=== PATIENT | female | born 1955 | race Caucasian/White ===

== ENCOUNTER 2024-09-26 16:36 | Emergency (ER) | payer MEDICARE, SELFPAY ==
--- NOTE | ~2024-09-26 | XR_ITS ---
XR wrist RT min 3V 09/26/2024 17:15 Indication: Right wrist pain Procedure: 4 views right wrist Comparison: No prior studies for comparison. Findings: No fracture, subluxation or dislocation. Mild osteoarthritis of the triscaphe and first carpal metacarpal joints. No erosive changes. There is anatomic alignment. 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 Reviewed, dictated and finalized at location O. 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
--- OUTSIDE RECORDS SUMMARY | 2024-09-26 16:39 | XMS_ITS | Encounter Summary ---
Author Organization [facility] Address [address] [place] [address] Care Team Providers Care Print Press Operator Name Role Phone Johnny Davis MD Primary Care Provider Encounter Details Date Type Department Care Team (Late st Contact Info) Description 05/17/1999 Emergency [facility] Maury Lee MD NO ADDRESS ON FILE Er, Authorized P NO ADDRESS ON FILE Myalgia and myositis, unspecified (Primary Dx) Social History Tobacco Use Types Packs/Day Years Used Date Smoking Tobacco: Never Assessed Comments Unknown Sex and Gender Information Value Date Recorded Sex Assigned at Not on file Legal Sex Female 4:28 AM ORNAMENTAL METAL WORKER HELPER Gender Identity Not on file Sexual Orientation Not on file documented as of this encounter Plan of Treatment Upcoming Encounters Date Type Department Care Team (Late st Contact Info) Description 12/11/2024 10:30 AM ORNAMENTAL METAL WORKER HELPER Video Visit [facility] Internal Medicine [facility] [address] [facility] [address] [facility] [address] [place] [address] Laura Pritchard, MARYJO [address] [place] [address] 07/07/2025 11:00 AM CDT Office Visit [facility] Internal Medicine [facility] [address] [facility] [address] [facility] [address] [place] [address] Johnny Davis MD [address] [place] [address] documented as of this encounter Visit Diagnoses Diagnosis Myalgia and myositis, unspecified- Primary Mylagia and myositis, unspecified documented in this encounter Additional Health Concerns Infection Onset Date Last Indicated Resolved Time R/O COVID-19 09/26/2019 09/26/2019 09/26/2019 2:08 PM CDT R/O COVID-19 09/26/2019 09/26/2019 09/26/2019 3:24 PM CDT R/O COVID-19 09/26/2019 09/26/2019 09/28/2019 2:36 AM CDT documented as of this encounter Care Teams Print Press Operator Relationship Specialty Start Date End Date Johnny Davis MD [address] [place] [address] PCP - General Internal Medicine 12/12/12 noe 01/26/16 01/26/16 Parminder Parry 01/26/16 [facility] 01/26/16 PROVIDER PLUS 10/25/18 documented as of this encounter
--- OUTSIDE RECORDS SUMMARY | 2024-09-26 16:39 | XMS_ITS | Encounter Summary ---
Author Organization [facility] Address [address] [place] [address] Care Team Providers Care Counselor/Art Therapist Name Role Phone Johnny Davis MD Primary Care Provider Encounter Details Date Type Department Care Team (Late st Contact Info) Description 08/31/1998 Emergency [facility] Dong Stafford, DO [id number] [place] [address] Er, Authorized P NO ADDRESS ON FILE Migraine, unspecified, without mention of intractable migraine without mention of status migrainosus (Primary Dx) Social History Tobacco Use Types Packs/Day Years Used Date Smoking Tobacco: Never Assessed Comments Unknown Sex and Gender Information Value Date Recorded Sex Assigned at Not on file Legal Sex Female 4:28 AM CCNA Gender Identity Not on file Sexual Orientation Not on file documented as of this encounter Plan of Treatment Upcoming Encounters Date Type Department Care Team (Late st Contact Info) Description 12/11/2024 10:30 AM CCNA Video Visit [facility] Internal Medicine [facility] [place] [facility] [address] [address] Laura Pritchard, MARYJO [address] [place] [address] 07/07/2025 11:00 AM CDT Office Visit [facility] Internal Medicine [facility] [address] [address] Johnny Davis MD [address] [address] documented as of this encounter Visit Diagnoses Diagnosis Migraine, unspecified, without mention of intractable migraine without mention of status migrainosus- Primary documented in this encounter Additional Health Concerns Infection Onset Date Last Indicated Resolved Time R/O COVID-19 09/26/2019 09/26/2019 09/26/2019 2:08 PM CDT R/O COVID-19 09/26/2019 09/26/2019 09/26/2019 3:24 PM CDT R/O COVID-19 09/26/2019 09/26/2019 09/28/2019 2:36 AM CDT documented as of this encounter Care Teams Counselor/Art Therapist Relationship Specialty Start Date End Date Johnny Davis MD [address] [place] [address] PCP - General Internal Medicine 12/12/12 sohan 01/26/16 01/26/16 Parminder Sohan 01/26/16 [facility] 01/26/16 PROVIDER PLUS 10/25/18 documented as of this encounter
--- OUTSIDE RECORDS SUMMARY | 2024-09-26 16:39 | XMS_ITS | Encounter Summary ---
Author Organization [facility] Address [address] [place] [address] Care Team Providers Care Picker Packer Name Role Phone Johnny Davis MD Primary Care Provider [phone] Encounter Details Date Type Department Care Team (Late st Contact Info) Description 06/08/[address] [facility] Internal Medicine [facility] [address] [address] [place] [address] Johnny Davis MD [address] [place] [address] Social History Tobacco Use Types Packs/Day Years Used Date Smoking Tobacco: Never Assessed Comments Unknown Sex and Gender Information Value Date Recorded Sex Assigned at Not on file Legal Sex Female 4:28 AM HEALTHCARE INSURANCE SALES AGENT Gender Identity Not on file Sexual Orientation Not on file documented as of this encounter Plan of Treatment Upcoming Encounters Date Type Department Care Team (Late st Contact Info) Description 12/11/2024 10:30 AM HEALTHCARE INSURANCE SALES AGENT Video Visit [facility] Internal Medicine [facility] [address] [place] [address] Laura Pritchard, MARYJO [address] [place] [address] 07/07/2025 11:00 AM CDT Office Visit [facility] Internal Medicine [facility] [address] [place] [address] Johnny Davis MD [address] [phone] documented as of this encounter Visit Diagnoses Not on filedocumented in this encounter Additional Health Concerns Infection Onset Date Last Indicated Resolved Time R/O COVID-19 09/26/2019 09/26/2019 09/26/2019 2:08 PM CDT R/O COVID-19 09/26/2019 09/26/2019 09/26/2019 3:24 PM CDT R/O COVID-19 09/26/2019 09/26/2019 09/28/2019 2:36 AM CDT documented as of this encounter Care Teams Picker Packer Relationship Specialty Start Date End Date Johnny Davis MD [address] [place] [address] PCP - General Internal Medicine 12/12/12 noe 01/26/16 01/26/16 Parminderoc Parry 01/26/16 [facility] 01/26/16 PROVIDER PLUS 10/25/18 documented as of this encounter
--- OUTSIDE RECORDS SUMMARY | 2024-09-26 16:39 | XMS_ITS | Encounter Summary ---
Author Organization [facility] Address [address] [place] [address] Care Team Providers Care Top Hat Body Maker Name Role Phone Johnny Davis MD Primary Care Provider Encounter Details Date Type Department Care Team (Late st Contact Info) Description 03/08/2000 Outpatient Historical [facility] Internal Medicine [facility] [address] [facility] [address] [place] [address] Johnny Davis MD [address] [facility] [address] [facility] [address] [place] [address] Social History Tobacco Use Types Packs/Day Years Used Date Smoking Tobacco: Never Assessed Comments Unknown Sex and Gender Information Value Date Recorded Sex Assigned at Not on file Legal Sex Female 4:28 AM MOTOR PATROL OPERATOR Gender Identity Not on file Sexual Orientation Not on file documented as of this encounter Plan of Treatment Upcoming Encounters Date Type Department Care Team (Late st Contact Info) Description 12/11/2024 10:30 AM MOTOR PATROL OPERATOR Video Visit [facility] Internal Medicine [facility] [address] [facility] [address] [facility] [address] [place] [address] Luara Pritchard, MARYJO [address] [place] [address] 07/07/2025 11:00 AM CDT Office Visit [facility] Internal Medicine [facility] [address] [facility] [address] [place] [address] Johnny Davis MD [address] [phone] documented as of this encounter Visit Diagnoses Not on filedocumented in this encounter Additional Health Concerns Infection Onset Date Last Indicated Resolved Time R/O COVID-19 09/26/2019 09/26/2019 09/26/2019 2:08 PM CDT R/O COVID-19 09/26/2019 09/26/2019 09/26/2019 3:24 PM CDT R/O COVID-19 09/26/2019 09/26/2019 09/28/2019 2:36 AM CDT documented as of this encounter Care Teams Top Hat Body Maker Relationship Specialty Start Date End Date Johnny Davis MD [address] [place] [address] PCP - General Internal Medicine 12/12/12 noe 01/26/16 01/26/16 Parminderoc Parry 01/26/16 [facility] 01/26/16 PROVIDER PLUS 10/25/18 documented as of this encounter
--- OUTSIDE RECORDS SUMMARY | 2024-09-26 16:39 | XMS_ITS | Encounter Summary ---
Author Organization [facility] Address [address] [place] [address] Care Team Providers Care Instructor Psychiatric Aide Name Role Phone Johnny Davis MD Primary Care Provider Reason for Visit * Reason Onset Date Comments ROUTING 08/08/2024 Encounter Details Date Type Department Care Team (Late st Contact Info) Description 08/08/2024 Telephone [facility] Internal Medicine Medical [facility] [address] [facility] [address] [place] [address] Johnny Davis MD [address] [facility] [address] [place] [address] ROUTING Social History Tobacco Use Types Packs/Day Years Used Date Smoking Tobacco: Former Cigarettes 0.5 50.3 0 04/22/1972 - 01/14/2020 Smokeless Tobacco: Never Comments:started at 17, quit off/on for total yrs smoking:quit 6 months ago Alcohol Use Standard Drinks/Week Comments No 0 (1 standard drink = 0.6 oz pur e alcohol) Feeling Safe Answer Date Recorded Are you in a relationship wi th someone who hurts you emotionally and/or physically? No 12/30/2022 Food Insecurity Answer Date Recorded Social/Environmental Concerns No concerns Transportation Needs Answer Date Record ed Social/Environmental Concerns No concerns Housing Stability Answer Date Recorded Social/Environmental Concerns No concerns Utility Needs Answer Date Recorded Social/Environmental Concerns No concerns Comments No Sex and Gender Information Value Date Recorded Sex Assigned at Not on file Legal Sex Female 4:28 AM TURNAROUND ENGINEER Gender Identity Not on file Sexual Orientation Not on file Occupation Industry Job Start Date Job End Date Not on file Not on file Not on file Not on file documented as of this encounter Miscellaneous Notes * Telephone Encounter - Diana Schofield RN - 08/08/2024 10:40 AM CDT 08/08/2024 10:42 AM Spoke with patient's spouse regarding MMM (verified on PHI). There was an issue getting Diana scheduled at the [facility] for iron infusions, but they have resolved this issue. Murray states that patient is extremely weak and can't walk without assistance. She has had a couple of falls. The earliest they could get her into the infusion center is next Monday and again the following Monday. Murray is concerned because patient's labs are worse than they were the last time when patient had orders for 5 daily infusions for 5 days in a row. He is concerned that two infusions will not be enough. Murray is inquiring if there is anything supplementally that they can do at this time for patient's symptoms. Also, a year or two ago, patient was referred to a senior j2ee developer and Murray is inquiring if they should do that again. He states that they need someone who will pay close attention to what is going on with the patient. Routed to PCP for review/input. Diana POTTS Received MMM 08/06 from patient's spouse in spouses chart-Murray Carrion: Re: my , Diana Carrion b/d 57 Dr Davis ordered infusions for Diana's severe anemia about 2 weeks ago. Referral somehow was sent to wrong place. [facility] now had order but is dragging fret on getting ins approval. Would you ir Dr Davis please call the infusion ctr at [facility] and get them to immediately get the ins approval so silvia can get appts for infusions assp. She is so week she cannot walk without support, extremely spacey , difficulty breathing. If i can't get her in immediately I may have to take her to er. Please help her. Murray Carrion [phone] documented in this encounter Plan of Treatment Upcoming Encounters Date Type Department Care Team (Late st Contact Info) Description 12/11/2024 10:30 AM TURNAROUND ENGINEER Video Visit [facility] Internal Medicine [facility] [address] [facility] [address] [place] [address] Laura Pritchard NP [address] [facility] [address] [place] [address] 07/07/2025 11:00 AM CDT Office Visit [facility] Internal Medicine [facility] [address] [facility] [address] [place] [address] Johnny Davis MD [address] [facility] [address] [place], [place] [phone] documented as of this encounter Visit Diagnoses Not on filedocumented in this encounter Additional Health Concerns Assessment Noted Time PHQ-9 Depression Total Score: 2 06/30/19 25 11:36 AM CDT documented as of this encounter Care Teams Instructor Psychiatric Aide Relationship Specialty Start Date End Date Johnny Davis MD [address] [facility] [address] [place], [place] [id number] PCP - General Internal Medicine 12/12/12 Parminder Parry 01/26/16 [facility] 01/26/16 PROVIDER PLUS 10/25/18 documented as of this encounter
--- OUTSIDE RECORDS SUMMARY | 2024-09-26 16:39 | XMS_ITS | Encounter Summary ---
Author Organization [facility] Address [address] [place] [address] Care Team Providers Care Certified Professional Ergonomist Name Role Phone Johnny Davis MD Primary Care Provider Encounter Details Date Type Department Care Team (Late st Contact Info) Description 07/14/1999 Outpatient Historical [facility] Internal Medicine [facility] [address] [facility] [address] [place] [address] Johnny Davis MD [address] [address] [place] [address] Social History Tobacco Use Types Packs/Day Years Used Date Smoking Tobacco: Never Assessed Comments Unknown Sex and Gender Information Value Date Recorded Sex Assigned at Not on file Legal Sex Female 4:28 AM FELLER MACHINE OPERATOR Gender Identity Not on file Sexual Orientation Not on file documented as of this encounter Plan of Treatment Upcoming Encounters Date Type Department Care Team (Late st Contact Info) Description 12/11/2024 10:30 AM FELLER MACHINE OPERATOR Video Visit [facility] Internal Medicine [facility] [address] [facility] [address] [place] [address] Laura Pritchard, MARYJO [address] [place] [address] 07/07/2025 11:00 AM CDT Office Visit [facility] Internal Medicine [facility] [address] [facility] [address] [place] [address] Johnny Davis MD [address] [id number] documented as of this encounter Visit Diagnoses Not on filedocumented in this encounter Additional Health Concerns Infection Onset Date Last Indicated Resolved Time R/O COVID-19 09/26/2019 09/26/2019 09/26/2019 2:08 PM CDT R/O COVID-19 09/26/2019 09/26/2019 09/26/2019 3:24 PM CDT R/O COVID-19 09/26/2019 09/26/2019 09/28/2019 2:36 AM CDT documented as of this encounter Care Teams Certified Professional Ergonomist Relationship Specialty Start Date End Date Johnny Davis MD [address] [place] [address] PCP - General Internal Medicine 12/12/12 noe 01/26/16 01/26/16 Parminderoc Parry 01/26/16 [facility] 01/26/16 PROVIDER PLUS 10/25/18 documented as of this encounter
--- OUTSIDE RECORDS SUMMARY | 2024-09-26 16:39 | XMS_ITS | Encounter Summary ---
Author Organization [facility] Address [address] [place] [address] Care Team Providers Care Health Technician Hearing Name Role Phone Johnny Davis MD Primary Care Provider [phone] Encounter Details Date Type Department Care Team (Late st Contact Info) Description 08/01/1999 Emergency [facility] Edgar Carcamo MD Er, Authorized P NO ADDRESS ON FILE Unspecified asthma(493.90) (Primary Dx) Social History Tobacco Use Types Packs/Day Years Used Date Smoking Tobacco: Never Assessed Comments Unknown Sex and Gender Information Value Date Recorded Sex Assigned at Not on file Legal Sex Female 4:28 AM CORRECTIONS LIEUTENANT Gender Identity Not on file Sexual Orientation Not on file documented as of this encounter Plan of Treatment Upcoming Encounters Date Type Department Care Team (Late st Contact Info) Description 12/11/2024 10:30 AM CORRECTIONS LIEUTENANT Video Visit [facility] Internal Medicine [facility] [address] [place] [address] Laura Pritchard NP [address] [place] [address] 07/07/2025 11:00 AM CDT Office Visit [facility] Internal Medicine [facility] [address] [place] [address] Johnny Davis MD [address] [facility] [address] [place] [address] documented as of this encounter Visit Diagnoses Diagnosis Unspecified asthma(493.90)- Primary Unspecified asthma documented in this encounter Additional Health Concerns Infection Onset Date Last Indicated Resolved Time R/O COVID-19 09/26/2019 09/26/2019 09/26/2019 2:08 PM CDT R/O COVID-19 09/26/2019 09/26/2019 09/26/2019 3:24 PM CDT R/O COVID-19 09/26/2019 09/26/2019 09/28/2019 2:36 AM CDT documented as of this encounter Care Teams Health Technician Hearing Relationship Specialty Start Date End Date Johnny Davis MD [address] [place] [address] PCP - General Internal Medicine 12/12/12 noe 01/26/16 01/26/16 Parminder Parry 01/26/16 [facility] 01/26/16 PROVIDER PLUS 10/25/18 documented as of this encounter
--- OUTSIDE RECORDS SUMMARY | 2024-09-26 16:39 | XMS_ITS | Encounter Summary ---
Author Organization [facility] Address [address] [place] [address] Care Team Providers Care Warehouse Person Name Role Phone Johnny Davis MD Primary Care Provider Encounter Details Date Type Department Care Team (Latest Contact Info) Description 04/23/2001 Outpatient Historical [facility] Kevin Miller MD [address] [place] [address] UNS ASTHMA WOSTATUS ASTHMATICUS (Primary Dx) Social History Tobacco Use Types Packs/Day Years Used Date Smoking Tobacco: Never Assessed Comments Unknown Sex and Gender Information Value Date Recorded Sex Assigned at Not on file Legal Sex Female 4:28 AM GEOLOGICAL E LOGGER Gender Identity Not on file Sexual Orientation Not on file documented as of this encounter Plan of Treatment Upcoming Encounters Date Type Department Care Team (Late st Contact Info) Description 12/11/2024 10:30 AM GEOLOGICAL E LOGGER Video Visit [facility] Internal Medicine [facility] [address] [place] [address] Laura Pritchard NP [address] [place] [address] 07/07/2025 11:00 AM CDT Office Visit [facility] Internal Medicine [facility] [address] [place] [address] Johnny Davis MD [address] [facility] [address] [place] [address] documented as of this encounter Visit Diagnoses Diagnosis Unspecified asthma(493.90)- Primary Unspecified asthma documented in this encounter Additional Health Concerns Infection Onset Date Last Indicated Resolved Time R/O COVID-19 09/26/2019 09/26/2019 09/26/2019 2:08 PM CDT R/O COVID-19 09/26/2019 09/26/2019 09/26/2019 3:24 PM CDT R/O COVID-19 09/26/2019 09/26/2019 09/28/2019 2:36 AM CDT documented as of this encounter Care Teams Warehouse Person Relationship Specialty Start Date End Date Johnny Davis MD [address] [address] PCP - General Internal Medicine 12/12/12 noe 01/26/16 01/26/16 Parminder Parry 01/26/16 [facility] 01/26/16 PROVIDER PLUS 10/25/18 documented as of this encounter
--- OUTSIDE RECORDS SUMMARY | 2024-09-26 16:39 | XMS_ITS | Encounter Summary ---
Author Organization [facility] Address [address] [place] [address] Care Team Providers Care Development Intern Name Role Phone Johnny Davis MD Primary Care Provider Encounter Details Date Type Department Care Team (Late st Contact Info) Description 10/14/1999 Outpatient Historical [facility] Internal Medicine [facility] [address] [facility] [address] [place] [address] Johnny Davis MD [address] [address] [place] [address] Social History Tobacco Use Types Packs/Day Years Used Date Smoking Tobacco: Never Assessed Comments Unknown Sex and Gender Information Value Date Recorded Sex Assigned at Not on file Legal Sex Female 4:28 AM VAMP THROATER Gender Identity Not on file Sexual Orientation Not on file documented as of this encounter Plan of Treatment Upcoming Encounters Date Type Department Care Team (Late st Contact Info) Description 12/11/2024 10:30 AM VAMP THROATER Video Visit [facility] Internal Medicine [facility] [address] [facility] [address] [place] [address] Laura Pritchard, MARYJO [address] [place] [address] 07/07/2025 11:00 AM CDT Office Visit [facility] Internal Medicine [facility] [address] [facility] [address] [place] [address] Johnny Davis MD [address] [phone] documented as of this encounter Visit Diagnoses Not on filedocumented in this encounter Additional Health Concerns Infection Onset Date Last Indicated Resolved Time R/O COVID-19 09/26/2019 09/26/2019 09/26/2019 2:08 PM CDT R/O COVID-19 09/26/2019 09/26/2019 09/26/2019 3:24 PM CDT R/O COVID-19 09/26/2019 09/26/2019 09/28/2019 2:36 AM CDT documented as of this encounter Care Teams Development Intern Relationship Specialty Start Date End Date Johnny Davis MD [address] [place] [address] PCP - General Internal Medicine 12/12/12 noe 01/26/16 01/26/16 Parminderoc Parry 01/26/16 [facility] 01/26/16 PROVIDER PLUS 10/25/18 documented as of this encounter
--- OUTSIDE RECORDS SUMMARY | 2024-09-26 16:39 | XMS_ITS | Encounter Summary ---
Author Organization [facility] Address [address] [place] [address] Care Team Providers Care Diesel Tractor Operator Name Role Phone Johnny Davis MD Primary Care Provider Encounter Details Date Type Department Care Team (Late st Contact Info) Description 05/02/2001 Outpatient Historical [facility] DEPT Joseph Hu MD [address] [place] [phone] BENIGN BIANCA SKULL/FACE BONE (Primary Dx) Social History Tobacco Use Types Packs/Day Years Used Date Smoking Tobacco: Never Assessed Comments Unknown Sex and Gender Information Value Date Recorded Sex Assigned at Not on file Legal Sex Female 4:28 AM FOUNDATION STAGE TEACHER Gender Identity Not on file Sexual Orientation Not on file documented as of this encounter Plan of Treatment Upcoming Encounters Date Type Department Care Team (Late st Contact Info) Description 12/11/2024 10:30 AM FOUNDATION STAGE TEACHER Video Visit [facility] Internal Medicine [facility] [address] [facility] [address] [place] [address] Laura Pritchard NP [address] [place] [address] 07/07/2025 11:00 AM CDT Office Visit [facility] Internal Medicine [facility] [address] [facility] [address] [place] [address] Johnny Davis MD 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
--- OUTSIDE RECORDS SUMMARY | 2024-09-26 16:39 | XMS_ITS | Encounter Summary ---
Author Organization [facility] Address [address] [place] [address] Care Team Providers Care Correction Officer Head Name Role Phone Johnny Davis MD Primary Care Provider Encounter Details Date Type Department Care Team (Latest Contact Info) Description 04/23/2001 Outpatient Historical [facility] Kevin Wallace MD [address] [place] [address] COUGH (Primary Dx) Social History Tobacco Use Types Packs/Day Years Used Date Smoking Tobacco: Never Assessed Comments Unknown Sex and Gender Information Value Date Recorded Sex Assigned at Not on file Legal Sex Female 4:28 AM NET WASHER Gender Identity Not on file Sexual Orientation Not on file documented as of this encounter Plan of Treatment Upcoming Encounters Date Type Department Care Team (Late st Contact Info) Description 12/11/2024 10:30 AM NET WASHER Video Visit [facility] Internal Medicine [facility] [address] [facility] [address] [place] [address] Laura Pritchard NP [address] [place] [address] 07/07/2025 11:00 AM CDT Office Visit [facility] Internal Medicine [facility] [address] [facility] [address] [place] [address] Johnny Davis MD [address] [facility] [address] [place] [address] documented as of this encounter Visit Diagnoses Diagnosis Cough- Primary documented in this encounter Additional Health Concerns Infection Onset Date Last Indicated Resolved Time R/O COVID-19 09/26/2019 09/26/2019 09/26/2019 2:08 PM CDT R/O COVID-19 09/26/2019 09/26/2019 09/26/2019 3:24 PM CDT R/O COVID-19 09/26/2019 09/26/2019 09/28/2019 2:36 AM CDT documented as of this encounter Care Teams Correction Officer Head Relationship Specialty Start Date End Date Johnny Davis MD [address] [place] [address] PCP - General Internal Medicine 12/12/12 noe 01/26/16 01/26/16 Parminder Parry 01/26/16 [facility] 01/26/16 PROVIDER PLUS 10/25/18 documented as of this encounter
--- OUTSIDE RECORDS SUMMARY | 2024-09-26 16:39 | XMS_ITS | Clinical Summary ---
Author Organization [facility] Address [address] [place] [address] Care Team Providers Care Jig Bore Operator Name Role Phone Unavailable Primary Care Provider Unavailabl e Social History Tobacco Use Types Packs/Day Years Used Date Smoking Tobacco: Never Assessed Comments Unknown Sex and Gender Information Value Date Recorded Sex Assigned at Not on file Legal Sex Female 10:36 AM CDT Gender Identity Not on file Sexual Orientation Not on file Plan of Treatment Health Maintenance Due Date Last Done Comments Colorectal Cancer Screening Colonoscopy (10 Years) 1956 Hepatitis C 1974 DTaP, Tdap and Td Vaccines (1 - Tdap) 09/24/1975 Mammogram Screening 1996 Zoster Vaccines (1 of 2) 2006 Annual Medicare Wellness Visit 2021 Dexa Scan (General) 2021 COVID-19 Vaccine ( season) 2023 11/03/2021, 01/26/2021, 05/11/2020, Additional history exists RSV Immunization or 60+ Years (1 - 1-dose 75+ series) 09/24/2031 Pneumococcal Vaccine: 50+ Years Completed 01/11/2022 Meningococcal B Vaccine Aged Out No l onger eligible based on patient's age to complete this topic Meningococcal Vaccine Aged Out No jose cruz drew eligible based on patient's age to complete this topic RSV Immunizations Under 20 Months Aged Out No longer eligible based on patient's age to complete this topic Insurance [employer]
--- OUTSIDE RECORDS SUMMARY | 2024-09-26 16:39 | XMS_ITS | Encounter Summary ---
Author Organization [facility] Address [address] [place] [address] Care Team Providers Care Order Processing Manager Name Role Phone Johnny Davis MD Primary Care Provider Encounter Details Date Type Department Care Team (Late st Contact Info) Description 08/13/1999 Outpatient Historical [facility] Internal Medicine [facility] [address] [facility] [address] [place] [address] Johnny aDvis MD [address] [facility] [address] [place] [address] Social History Tobacco Use Types Packs/Day Years Used Date Smoking Tobacco: Never Assessed Comments Unknown Sex and Gender Information Value Date Recorded Sex Assigned at Not on file Legal Sex Female 4:28 AM FORGE HEATER Gender Identity Not on file Sexual Orientation Not on file documented as of this encounter Plan of Treatment Upcoming Encounters Date Type Department Care Team (Late st Contact Info) Description 12/11/2024 10:30 AM FORGE HEATER Video Visit [facility] Internal Medicine [facility] [address] [facility] [address] [place] [address] Laura Pritchard, MARYJO [address] [place] [address] 07/07/2025 11:00 AM CDT Office Visit [facility] Internal Medicine [facility] [address] [facility] [address] [place] [address] Johnny Davis MD [address] [phone] documented as of this encounter Visit Diagnoses Not on filedocumented in this encounter Additional Health Concerns Infection Onset Date Last Indicated Resolved Time R/O COVID-19 09/26/2019 09/26/2019 09/26/2019 2:08 PM CDT R/O COVID-19 09/26/2019 09/26/2019 09/26/2019 3:24 PM CDT R/O COVID-19 09/26/2019 09/26/2019 09/28/2019 2:36 AM CDT documented as of this encounter Care Teams Order Processing Manager Relationship Specialty Start Date End Date Johnny Davis MD [address] [place] [address] PCP - General Internal Medicine 12/12/12 noe 01/26/16 01/26/16 Parminderoc Parry 01/26/16 [facility] 01/26/16 PROVIDER PLUS 10/25/18 documented as of this encounter
--- OUTSIDE RECORDS SUMMARY | 2024-09-26 16:39 | XMS_ITS | Encounter Summary ---
Author Organization [facility] Address [address] [place] [address] Care Team Providers Care Supervisor Drying Name Role Phone Johnny Davis MD Primary Care Provider Encounter Details Date Type Department Care Team (Late st Contact Info) Description 03/09/1999 Outpatient Historical [facility] Internal Medicine [facility] [address] [facility] [address] [place] [address] Johnny Davis MD [address] [facility] [address] [place] [address] Social History Tobacco Use Types Packs/Day Years Used Date Smoking Tobacco: Never Assessed Comments Unknown Sex and Gender Information Value Date Recorded Sex Assigned at Not on file Legal Sex Female 4:28 AM HOME SPECIALIST Gender Identity Not on file Sexual Orientation Not on file documented as of this encounter Plan of Treatment Upcoming Encounters Date Type Department Care Team (Late st Contact Info) Description 12/11/2024 10:30 AM HOME SPECIALIST Video Visit [facility] Internal Medicine [facility] [address] [facility] [address] [place] [address] Laura Pritchard, MARYJO [address] [place] [address] 07/07/2025 11:00 AM CDT Office Visit [facility] Internal Medicine [facility] [address] [facility] [address] [place] [address] Johnny Davis MD [address] [phone] documented as of this encounter Visit Diagnoses Not on filedocumented in this encounter Additional Health Concerns Infection Onset Date Last Indicated Resolved Time R/O COVID-19 09/26/2019 09/26/2019 09/26/2019 2:08 PM CDT R/O COVID-19 09/26/2019 09/26/2019 09/26/2019 3:24 PM CDT R/O COVID-19 09/26/2019 09/26/2019 09/28/2019 2:36 AM CDT documented as of this encounter Care Teams Supervisor Drying Relationship Specialty Start Date End Date Johnny Davis MD [address] [place] [address] PCP - General Internal Medicine 12/12/12 noe 01/26/16 01/26/16 Parminderoc Parry 01/26/16 [facility] 01/26/16 PROVIDER PLUS 10/25/18 documented as of this encounter
--- OUTSIDE RECORDS SUMMARY | 2024-09-26 16:39 | XMS_ITS | Encounter Summary ---
Author Organization [facility] Address [address] [place] [address] Care Team Providers Care Electrical & Instrumentation Supervisor Name Role Phone Johnny Davis MD Primary Care Provider Encounter Details Date Type Department Care Team (Late st Contact Info) Description 03/27/2001 Outpatient Historical [facility] Internal Medicine [facility] [address] [facility] [address] [place] [address] Johnny Davis MD [address] [facility] [address] [place] [address] Social History Tobacco Use Types Packs/Day Years Used Date Smoking Tobacco: Never Assessed Comments Unknown Sex and Gender Information Value Date Recorded Sex Assigned at Not on file Legal Sex Female 4:28 AM ENROLLMENT MANAGEMENT COORDINATOR Gender Identity Not on file Sexual Orientation Not on file documented as of this encounter Plan of Treatment Upcoming Encounters Date Type Department Care Team (Late st Contact Info) Description 12/11/2024 10:30 AM ENROLLMENT MANAGEMENT COORDINATOR Video Visit [facility] Internal Medicine [facility] [address] [facility] [address] [place] [address] Laura Pritchard, MARYJO [address] [place] [address] 07/07/2025 11:00 AM CDT Office Visit [facility] Internal Medicine [facility] [address] [facility] [address] [place] [address] Johnny Davis MD [address] [phone] documented as of this encounter Visit Diagnoses Not on filedocumented in this encounter Additional Health Concerns Infection Onset Date Last Indicated Resolved Time R/O COVID-19 09/26/2019 09/26/2019 09/26/2019 2:08 PM CDT R/O COVID-19 09/26/2019 09/26/2019 09/26/2019 3:24 PM CDT R/O COVID-19 09/26/2019 09/26/2019 09/28/2019 2:36 AM CDT documented as of this encounter Care Teams Electrical & Instrumentation Supervisor Relationship Specialty Start Date End Date Johnny Davis MD [address] [place] [address] PCP - General Internal Medicine 12/12/12 noe 01/26/16 01/26/16 Parminderoc Parry 01/26/16 [facility] 01/26/16 PROVIDER PLUS 10/25/18 documented as of this encounter
--- OUTSIDE RECORDS SUMMARY | 2024-09-26 16:40 | XMS_ITS | Encounter Summary ---
Author Organization [facility] Address [address] [place] [address] Care Team Providers Care Detective Captain Name Role Phone Johnny Davis MD Primary Care Provider Encounter Details Date Type Department Care Team (Late st Contact Info) Description 12/16/2003 Outpatient Historical [facility] [address] [place] [address] Susana Fu MD Social History Tobacco Use Types Packs/Day Years Used Date Smoking Tobacco: Never Assessed Comments Unknown Sex and Gender Information Value Date Recorded Sex Assigned at Not on file Legal Sex Female 4:28 AM MERCHANDISE EXECUTION LEADER Gender Identity Not on file Sexual Orientation Not on file documented as of this encounter Plan of Treatment Upcoming Encounters Date Type Department Care Team (Late st Contact Info) Description 12/11/2024 10:30 AM MERCHANDISE EXECUTION LEADER Video Visit [facility] Internal Medicine [facility] [address] [facility] [address] [place] [address] Laura Pritchard NP [address] [facility] [address] [place] [address] 07/07/2025 11:00 AM CDT Office Visit [facility] Internal Medicine [facility] [address] [facility] [address] [place] [address] Johnny Davis MD [address] [facility] [address] [place] [address] documented as of this encounter Visit Diagnoses Not on filedocumented in this encounter Additional Health Concerns Infection Onset Date Last Indicated Resolved Time R/O COVID-19 09/26/2019 09/26/2019 09/26/2019 2:08 PM CDT R/O COVID-19 09/26/2019 09/26/2019 09/26/2019 3:24 PM CDT R/O COVID-19 09/26/2019 09/26/2019 09/28/2019 2:36 AM CDT documented as of this encounter Care Teams Detective Captain Relationship Specialty Start Date End Date Johnny Davis MD [address] [place] [address] PCP - General Internal Medicine 12/12/12 noe 01/26/16 01/26/16 Parminder Parry 01/26/16 [facility] 01/26/16 PROVIDER PLUS 10/25/18 documented as of this encounter
--- OUTSIDE RECORDS SUMMARY | 2024-09-26 16:40 | XMS_ITS | Encounter Summary ---
Author Organization [facility] Address [address] [place] [address] Care Team Providers Care Cattle Rancher Name Role Phone Johnny Davis MD Primary Care Provider Encounter Details Date Type Department Care Team (Latest Contact Info) Description 03/22/2006 Inpatient Historical [facility] Johnny Davis MD [address] [place] [address] [address] [place] [address] Unspecified Disease of Pericardium (Primary Dx) Social History Tobacco Use Types Packs/Day Years Used Date Smoking Tobacco: Never Assessed Comments Unknown Sex and Gender Information Value Date Recorded Sex Assigned at Not on file Legal Sex Female 4:28 AM WRAPPER DIPPER Gender Identity Not on file Sexual Orientation Not on file documented as of this encounter Plan of Treatment Upcoming Encounters Date Type Department Care Team (Late st Contact Info) Description 12/11/2024 10:30 AM WRAPPER DIPPER Video Visit [facility] Internal Medicine [facility] [address] [facility] [address] [place] [address] Laura Pritchard NP [address] [facility] [address] [place] [address] 07/07/2025 11:00 AM CDT Office Visit [facility] Internal Medicine [facility] [address] [facility] [address] [place] [address] Johnny Davis MD [address] [place] [address] [address] [place] [address] documented as of this encounter Procedures Procedure Name Priority Date/Time Associated Diagnosis Comments TROPONIN (W/REFLEX CKMB/CK) Routine 03/23/2006 5:55 AM WRAPPER DIPPER TROPONIN (W/REFLEX CKMB/CK) Routine 03/22/2006 9:50 PM WRAPPER DIPPER CBC WITH DIFFERENTIAL Routine 03/22/2006 9:50 PM WRAPPER DIPPER CBC WITH DIFFERENTIAL Routine 03/22/2006 9:50 PM WRAPPER DIPPER COMPREHENSIVE METABOLIC PANEL Routine 03/22/2006 9:50 PM WRAPPER DIPPER documented in this encounter Results * TROPONIN (W/REFLEX CKMB/CK) (03/23/2006 5:55 AM WRAPPER DIPPER) Pathologist [facility] TROPONIN T <0.01 <=0.03 ng/mL INTERFACE SYSTEM TROPONIN T INTERP Negative INTERFACE SYSTEM 03/23/2006 5:55 AM WRAPPER DIPPER Johnny Davis MD CHEMISTRY ORDERABLES Edited Performing Organization Address City/[facility] Co de Phone Number INTERFACE SYSTEM Refer to clinic/hospital department * TROPONIN (W/REFLEX CKMB/CK) (03/22/2006 9:50 PM WRAPPER DIPPER) Pathologist [facility] TROPONIN T <0.01 <=0.03 ng/mL INTERFACE SYSTEM TROPONIN T INTERP Negative INTERFACE SYSTEM 03/22/2006 9:50 PM WRAPPER DIPPER Narrative INTERFACE SYSTEM - 03/22/2006 10:19 PM WRAPPER DIPPER Ordered by an unspecified provider. us Historical Provider CHEMISTRY ORDERABLES Edited Performing Organization Address City/[facility] Co de Phone Number INTERFACE SYSTEM Refer to clinic/hospital department * (ABNORMAL) CBC WITH DIFFERENTIAL (03/22/2006 9:50 PM WRAPPER DIPPER) Pathologist [facility] NEUTROPHILS 59 45 - 70 % INTERFAC E SYSTEM LYMPHOCYTES 30 16 - 45 % INTERFAC E SYSTEM MONOCYTES 7 3 - 13 % INTERFACE SYSTEM EOSINOPHILS 3 0 - 7 % INTERFAC E SYSTEM BASOPHILS 0 0 - 2 % INTERFACE SYSTEM NEUTROPHIL ABSOLUTE 9.72(H) 1.90 - 7.00 K/uL INTERFACE SYSTEM LYMPHOCYTE ABSOLUTE 4.88(H) 0.70 - 4.50 K/uL INTERFACE SYSTEM MONOCYTE ABSOLUTE 1.15 0.10 - 1.30 K/uL INTERFACE SYSTEM EOSINOPHIL ABSOLUTE 0.56 0.00 - 0.70 K/uL INTERFACE SYSTEM BASOPHILS ABSOLUTE 0.07 0.00 - 0.20 K/uL INTERFACE SYSTEM 03/22/2006 9:50 PM WRAPPER DIPPER Narrative INTERFACE SYSTEM - 03/22/2006 10:00 PM WRAPPER DIPPER Ordered by an unspecified provider. Historical Provider HEMATOLOGY ORDERABLES Edited Performing Organization Address City/[facility] Co de Phone Number INTERFACE SYSTEM Refer to clinic/hospital department * (ABNORMAL) CBC WITH DIFFERENTIAL (03/22/2006 9:50 PM WRAPPER DIPPER) WBC 16.4(H) 4.0 - 9.8 K/uL INTERFACE SYSTEM RBC 5.12(H) 3.90 - 4.90 M/uL INTERFACE SYSTEM HEMOGLOBIN 15.3(H) 11.8 - 14.8 g/dL INTERFACE SYSTEM HEMATOCRIT 43.8 35.5 - 44.0 % INTERFACE SYSTEM MCV 85.5 82.0 - 99.0 fL INTERFACE SYSTEM MCH 29.9 27.2 - 32.6 pg INTERFACE SYSTEM MCHC 34.9 31.5 - 35.5 % INTERFACE SYSTEM RDW 13.9 11.5 - 14.5 % INTERFACE SYSTEM RDW-STDEV 43.7 37.1 - 48.7 fL INTERFACE SYSTEM PLATELETS 319 140 - 350 K/uL INTERFACE SYSTEM MPV 9.8 9.3 - 12.4 fL INTERFACE SYSTEM 03/22/2006 9:50 PM WRAPPER DIPPER Narrative INTERFACE SYSTEM - 03/22/2006 10:00 PM WRAPPER DIPPER Ordered by an unspecified provider. Historical Provider HEMATOLOGY ORDERABLES Edited INTERFACE SYSTEM Refer to clinic/hospital department * (ABNORMAL) COMPREHENSIVE METABOLIC PANEL (03/22/2006 9:50 PM WRAPPER DIPPER) GLUCOSE 119(H) 65 - 99 mg/dL INTERFACE SYSTEM CREATININE 0.94 0.51 - 0.95 mg/dL INTERFACE SYSTEM CALCIUM 9.2 8.4 - 10.2 mg/dL INTERFACE SYSTEM ALKALINE PHOSPHATASE 89 35 - 104 U/L INTERFACE SYSTEM AST 17 12 - 32 U/L INTERFACE SYSTEM ALT 19 0 - 31 U/L INTERFACE SYSTEM TOTAL PROTEIN 7.2 6.3 - 8.6 g/dL INTERFACE SYSTEM ALBUMIN 4.3 3.4 - 4.8 g/dL INTERFACE SYSTEM BILIRUBIN TOTAL 0.2 0.2 - 1.0 mg/dL INTERFACE SYSTEM BUN 13 6 - 20 mg/dL INTERFACE SYSTEM SODIUM 137 135 - 145 mmol/L INTERFACE SYSTEM POTASSIUM 3.6 3.5 - 4.9 mmol/L INTERFACE SYSTEM CHLORIDE 101 96 - 108 mmol/L INTERFACE SYSTEM CO2 27 22 - 30 mmol/L INTERFACE SYSTEM GFR, >60 >=60 mL/min/1. 7 sq meter INTERFACE SYSTEM GFR >60 >=60 mL/min/1. 7 sq meter INTERFACE SYSTEM Comment: Estimated GFR rate interpretative information for both Americans and non- Americans is available on the [facility] Intranet at: [email or web address] Select: Lab Policies and Procedures Select: Reference Ranges - GFR 03/22/2006 9:50 PM WRAPPER DIPPER Narrative INTERFACE SYSTEM - 03/22/2006 10:17 PM WRAPPER DIPPER Ordered by an unspecified provider. us Historical Provider CHEMISTRY ORDERABLES Edited INTERFACE SYSTEM Refer to clinic/hospital department documented in this encounter Visit Diagnoses Diagnosis Unspecified disease of pericardium- Primary documented in this encounter Additional Health Concerns Infection Onset Date Last Indicated Resolved Time R/O COVID-19 09/26/2019 09/26/2019 09/26/2019 2:08 PM CDT R/O COVID-19 09/26/2019 09/26/2019 09/26/2019 3:24 PM CDT R/O COVID-19 09/26/2019 09/26/2019 09/28/2019 2:36 AM CDT documented as of this encounter Care Teams Cattle Rancher Relationship Specialty Start Date End Date Johnny Davis MD [address] [place] [address] PCP - General Internal Medicine 12/12/12 noe 01/26/16 01/26/16 Parminder Parry 01/26/16 [facility] 01/26/16 PROVIDER PLUS 10/25/18 documented as of this encounter
--- OUTSIDE RECORDS SUMMARY | 2024-09-26 16:40 | XMS_ITS | Encounter Summary ---
Author Organization [facility] Address [address] [place] [address] Care Team Providers Care Mobile Security Specialist Name Role Phone Johnny Davis MD Primary Care Provider Encounter Details Date Type Department Care Team (Late st Contact Info) Description 04/05/2006 Outpatient Historical [facility] Internal Medicine Medical [place] [facility] [address] [place] [address] Johnny Davis MD [facility] [address] [place], [place] [id number] Social History Tobacco Use Types Packs/Day Years Used Date Smoking Tobacco: Never Assessed Comments Unknown Sex and Gender Information Value Date Recorded Sex Assigned at Not on file Legal Sex Female 4:28 AM CLINICAL PROGRAM COORDINATOR Gender Identity Not on file Sexual Orientation Not on file documented as of this encounter Last Filed Vital Signs Vital Sign Reading Time Taken Comments Blood Pressure 140/70 04/05/2006 11:45 AM CLINICAL PROGRAM COORDINATOR Pulse 74 04/05/2006 11:45 AM CLINICAL PROGRAM COORDINATOR Temperature - - Respiratory Rate 12 04/05/2006 11:45 AM CLINICAL PROGRAM COORDINATOR Oxygen Saturation - - Inhaled Oxygen Concentration - - Weight 90.7 kg (200 lb) 04/05/2006 11:45 AM CLINICAL PROGRAM COORDINATOR Height 167.6 cm (5' 6) 04/05/2006 11:45 AM CLINICAL PROGRAM COORDINATOR Body Mass Index 32.28 04/05/2006 11:45 AM CLINICAL PROGRAM COORDINATOR documented in this encounter Plan of Treatment Upcoming Encounters Date Type Department Care Team (Late st Contact Info) Description 12/11/2024 10:30 AM CLINICAL PROGRAM COORDINATOR Video Visit [facility] Internal Medicine Medical [place] [facility] [address] [phone] Laura Pritchard NP [address] [facility] [address] [place] [address] 07/07/2025 11:00 AM CDT Office Visit [facility] Internal Medicine Medical [place] [facility] [address] [place] [phone] Johnny Davis MD [address] [facility] [address] [place] [address] documented as of this encounter Visit Diagnoses Not on filedocumented in this encounter Additional Health Concerns Infection Onset Date Last Indicated Resolved Time R/O COVID-19 09/26/2019 09/26/2019 09/26/2019 2:08 PM CDT R/O COVID-19 09/26/2019 09/26/2019 09/26/2019 3:24 PM CDT R/O COVID-19 09/26/2019 09/26/2019 09/28/2019 2:36 AM CDT documented as of this encounter Care Teams Mobile Security Specialist Relationship Specialty Start Date End Date Johnny Davis MD [address] [facility] [address] [address] PCP - General Internal Medicine 12/12/12 sohan 01/26/16 01/26/16 Parminder Sohan 01/26/16 [facility] 01/26/16 PROVIDER PLUS 10/25/18 documented as of this encounter
--- OUTSIDE RECORDS SUMMARY | 2024-09-26 16:40 | XMS_ITS | Encounter Summary ---
Author Organization [facility] Address [address] [place] [address] Care Team Providers Care Casino Porter Name Role Phone Johnny Davis MD Primary Care Provider Encounter Details Date Type Department Care Team (Late st Contact Info) Description 05/11/2006 Orders Only [facility] Internal Medicine [facility] [address] [facility] [address] [place] [address] Johnny Davis MD [address] [facility] [address] [place] [address] Social History Tobacco Use Types Packs/Day Years Used Date Smoking Tobacco: Never Assessed Comments Unknown Sex and Gender Information Value Date Recorded Sex Assigned at Not on file Legal Sex Female 4:28 AM APPLICATION DESIGN ENGINEER Gender Identity Not on file Sexual Orientation Not on file documented as of this encounter Plan of Treatment Upcoming Encounters Date Type Department Care Team (Late st Contact Info) Description 12/11/2024 10:30 AM APPLICATION DESIGN ENGINEER Video Visit [facility] Internal Medicine [facility] [address] [facility] [address] [place] [address] Laura Pritchard, MARYJO [address] [place] [address] 07/07/2025 11:00 AM CDT Office Visit [facility] Internal Medicine [facility] [address] [facility] [address] [place] [address] Johnny Davis MD [address] [phone] documented as of this encounter Visit Diagnoses Not on filedocumented in this encounter Additional Health Concerns Infection Onset Date Last Indicated Resolved Time R/O COVID-19 09/26/2019 09/26/2019 09/26/2019 2:08 PM CDT R/O COVID-19 09/26/2019 09/26/2019 09/26/2019 3:24 PM CDT R/O COVID-19 09/26/2019 09/26/2019 09/28/2019 2:36 AM CDT documented as of this encounter Care Teams Casino Porter Relationship Specialty Start Date End Date Johnny Davis MD [address] [place] [address] PCP - General Internal Medicine 12/12/12 noe 01/26/16 01/26/16 Parminderoc Parry 01/26/16 [facility] 01/26/16 PROVIDER PLUS 10/25/18 documented as of this encounter
--- OUTSIDE RECORDS SUMMARY | 2024-09-26 16:40 | XMS_ITS | Encounter Summary ---
Author Organization [facility] Address [address] [place] [address] Care Team Providers Care Animal Sticker Name Role Phone Johnny Davis MD Primary Care Provider [phone] Encounter Details Date Type Department Care Team (Late st Contact Info) Description 04/25/2003 Emergency [facility] Alexi Armstrong MD [address] [place] [address] Er, Authorized P NO ADDRESS ON FILE MIGRAINE NOS W/O MENTN INTRACTABLE (Primary Dx) Social History Tobacco Use Types Packs/Day Years Used Date Smoking Tobacco: Never Assessed Comments Unknown Sex and Gender Information Value Date Recorded Sex Assigned at Not on file Legal Sex Female 4:28 AM COTTON PICKER OPERATOR Gender Identity Not on file Sexual Orientation Not on file documented as of this encounter Plan of Treatment Upcoming Encounters Date Type Department Care Team (Late st Contact Info) Description 12/11/2024 10:30 AM COTTON PICKER OPERATOR Video Visit [facility] Internal Medicine [facility] [address] [address] Laura Pritchard NP [address] [facility] [address] [place] [address] 07/07/2025 11:00 AM CDT Office Visit [facility] Internal Medicine [facility] [address] [address] Johnny Davis MD [address] [address] documented as of this encounter Visit Diagnoses [...] documented as of this encounter Care Teams Animal Sticker Relationship Specialty Start Date End Date Johnny Davis MD [address] [address] PCP - General Internal Medicine 12/12/12 noe 01/26/16 01/26/16 Parminder Parry 01/26/16 [facility] 01/26/16 PROVIDER PLUS 10/25/18 documented as of this encounter
--- OUTSIDE RECORDS SUMMARY | 2024-09-26 16:40 | XMS_ITS | Encounter Summary ---
Author Organization [facility] Address [address] [place] [address] Care Team Providers Care Swatch Folder Name Role Phone Johnny Davis MD Primary Care Provider Encounter Details Date Type Department Care Team (Latest Contact Info) Description 03/01/2001 Outpatient Historical [facility] Lobito Hardin MD NO ADDRESS ON FILE COUGH (Primary Dx) Social History Tobacco Use Types Packs/Day Years Used Date Smoking Tobacco: Never Assessed Comments Unknown Sex and Gender Information Value Date Recorded Sex Assigned at Not on file Legal Sex Female 4:28 AM CURB SETTER HELPER Gender Identity Not on file Sexual Orientation Not on file documented as of this encounter Plan of Treatment Upcoming Encounters Date Type Department Care Team (Late st Contact Info) Description 12/11/2024 10:30 AM CURB SETTER HELPER Video Visit [facility] Internal Medicine [facility] [address] [facility] [address] [place] [address] Laura Pritchard NP [address] [address] 07/07/2025 11:00 AM CDT Office Visit [facility] Internal Medicine [facility] [address] [facility] [address] [place] [address] Johnny Davis MD [address] [facility] [address] [place] [address] documented as of this encounter Visit Diagnoses Diagnosis Cough- Primary documented in this encounter Additional Health Concerns Infection Onset Date Last Indicated Resolved Time R/O COVID-19 09/26/2019 09/26/2019 09/26/2019 2:08 PM CDT R/O COVID-19 09/26/2019 09/26/2019 09/26/2019 3:24 PM CDT R/O COVID-19 09/26/2019 09/26/2019 09/28/2019 2:36 AM CDT documented as of this encounter Care Teams Swatch Folder Relationship Specialty Start Date End Date Johnny Davis MD [address] [place] [id number] PCP - General Internal Medicine 12/12/12 noe 01/26/16 01/26/16 Parminder Parry 01/26/16 [facility] 01/26/16 PROVIDER PLUS 10/25/18 documented as of this encounter
--- OUTSIDE RECORDS SUMMARY | 2024-09-26 16:40 | XMS_ITS | Encounter Summary ---
Author Organization [facility] Address [address] [place] [address] Care Team Providers Care Youth Care Worker Name Role Phone Johnny Davis MD Primary Care Provider Encounter Details Date Type Department Care Team (Late st Contact Info) Description 11/03/2000 Outpatient Historical [facility] Internal Medicine [facility] [address] [facility] [address] [place] [address] Johnny Davis MD [address] [facility] [address] [place] [address] Social History Tobacco Use Types Packs/Day Years Used Date Smoking Tobacco: Never Assessed Comments Unknown Sex and Gender Information Value Date Recorded Sex Assigned at Not on file Legal Sex Female 4:28 AM PRINT COLOR OPERATOR Gender Identity Not on file Sexual Orientation Not on file documented as of this encounter Plan of Treatment Upcoming Encounters Date Type Department Care Team (Late st Contact Info) Description 12/11/2024 10:30 AM PRINT COLOR OPERATOR Video Visit [facility] Internal Medicine [facility] [address] [facility] [address] [place] [address] Laura Pritchard, MARYJO [address] [place] [address] 07/07/2025 11:00 AM CDT Office Visit [facility] Internal Medicine [facility] [address] [facility] [address] [place] [address] Johnny Davis MD [address] [id number] documented as of this encounter Visit Diagnoses Not on filedocumented in this encounter Additional Health Concerns Infection Onset Date Last Indicated Resolved Time R/O COVID-19 09/26/2019 09/26/2019 09/26/2019 2:08 PM CDT R/O COVID-19 09/26/2019 09/26/2019 09/26/2019 3:24 PM CDT R/O COVID-19 09/26/2019 09/26/2019 09/28/2019 2:36 AM CDT documented as of this encounter Care Teams Youth Care Worker Relationship Specialty Start Date End Date Johnny Davis MD [address] [place] [address] PCP - General Internal Medicine 12/12/12 noe 01/26/16 01/26/16 Parminderoc Parry 01/26/16 [facility] 01/26/16 PROVIDER PLUS 10/25/18 documented as of this encounter
--- OUTSIDE RECORDS SUMMARY | 2024-09-26 16:40 | XMS_ITS | Encounter Summary ---
Author Organization [facility] Address [address] [place] [address] Care Team Providers Care Scheduler Name Role Phone Johnny Davis MD Primary Care Provider Encounter Details Date Type Department Care Team (Late st Contact Info) Description 03/24/2006 Outpatient Historical [facility] [address] [place] [address] Israel Lopez MD NO ADDRESS ON FILE Social History Tobacco Use Types Packs/Day Years Used Date Smoking Tobacco: Never Assessed Comments Unknown Sex and Gender Information Value Date Recorded Sex Assigned at Not on file Legal Sex Female 4:28 AM SALES AND LEASING CONSULTANT Gender Identity Not on file Sexual Orientation Not on file documented as of this encounter Plan of Treatment Upcoming Encounters Date Type Department Care Team (Late st Contact Info) Description 12/11/2024 10:30 AM SALES AND LEASING CONSULTANT Video Visit [facility] Internal Medicine [facility] [address] [facility] [address] [place] [address] Laura Pritchard NP [address] [facility] [address] [place] [address] 07/07/2025 11:00 AM CDT Office Visit [facility] Internal Medicine [facility] [address] [facility] [address] [place] [address] Johnny Davis MD [address] [facility] [address] [place] [address] documented as of this encounter Visit Diagnoses Not on filedocumented in this encounter Additional Health Concerns Infection Onset Date Last Indicated Resolved Time R/O COVID-19 09/26/2019 09/26/2019 09/26/2019 2:08 PM CDT R/O COVID-19 09/26/2019 09/26/2019 09/26/2019 3:24 PM CDT R/O COVID-19 09/26/2019 09/26/2019 09/28/2019 2:36 AM CDT documented as of this encounter Care Teams Scheduler Relationship Specialty Start Date End Date Johnny Davis MD [address] [place] [address] PCP - General Internal Medicine 12/12/12 noe 01/26/16 01/26/16 Parminder Parry 01/26/16 [facility] 01/26/16 PROVIDER PLUS 10/25/18 documented as of this encounter
--- OUTSIDE RECORDS SUMMARY | 2024-09-26 16:40 | XMS_ITS | Encounter Summary ---
Author Organization [facility] Address [address] [place] [address] Care Team Providers Care Pipe Cleaner Name Role Phone Johnny Davis MD Primary Care Provider Encounter Details Date Type Department Care Team (Late st Contact Info) Description 12/16/2003 Outpatient Historical [facility] Internal Medicine [facility] [address] [place] [address] Johnny Davis MD [address] [facility] [address] [place] [address] Social History Tobacco Use Types Packs/Day Years Used Date Smoking Tobacco: Never Assessed Comments Unknown Sex and Gender Information Value Date Recorded Sex Assigned at Not on file Legal Sex Female 4:28 AM SAW CLEANER Gender Identity Not on file Sexual Orientation Not on file documented as of this encounter Plan of Treatment Upcoming Encounters Date Type Department Care Team (Late st Contact Info) Description 12/11/2024 10:30 AM SAW CLEANER Video Visit [facility] Internal Medicine [facility] [address] [place] [address] Laura Pritchard, MARYJO [address] [place] [address] 07/07/2025 11:00 AM CDT Office Visit [facility] Internal Medicine [facility] [address] [place] [address] Johnny Davis MD [address] [phone] documented as of this encounter Visit Diagnoses Not on filedocumented in this encounter Additional Health Concerns Infection Onset Date Last Indicated Resolved Time R/O COVID-19 09/26/2019 09/26/2019 09/26/2019 2:08 PM CDT R/O COVID-19 09/26/2019 09/26/2019 09/26/2019 3:24 PM CDT R/O COVID-19 09/26/2019 09/26/2019 09/28/2019 2:36 AM CDT documented as of this encounter Care Teams Pipe Cleaner Relationship Specialty Start Date End Date Johnny Davis MD [address] [place] [address] PCP - General Internal Medicine 12/12/12 noe 01/26/16 01/26/16 Parminderoc Parry 01/26/16 [facility] 01/26/16 PROVIDER PLUS 10/25/18 documented as of this encounter
--- OUTSIDE RECORDS SUMMARY | 2024-09-26 16:40 | XMS_ITS | Encounter Summary ---
Author Organization [facility] Address [address] [place] [address] Care Team Providers Care Electroplating Technician Name Role Phone Johnny Davis MD Primary Care Provider Encounter Details Date Type Department Care Team (Late st Contact Info) Description 05/05/2006 Outpatient Historical [facility] Internal Medicine [facility] [address] [facility] [address] [place] [address] Johnny Davis MD [address] [facility] [address] [place], [place] [id number] Social History Tobacco Use Types Packs/Day Years Used Date Smoking Tobacco: Never Assessed Comments Unknown Sex and Gender Information Value Date Recorded Sex Assigned at Not on file Legal Sex Female 4:28 AM CLERICAL AND OFFICE SUPPORT WORKERS Gender Identity Not on file Sexual Orientation Not on file documented as of this encounter Last Filed Vital Signs Vital Sign Reading Time Taken Comments Blood Pressure 120/70 05/05/2006 2:00 PM CDT Pulse 74 05/05/2006 2:00 PM CDT Temperature - - Respiratory Rate 12 05/05/2006 2:00 PM CDT Oxygen Saturation - - Inhaled Oxygen Concentration - - Weight 90.7 kg (200 lb) 05/05/2006 2:00 PM CDT Height 167.6 cm (5' 6) 05/05/2006 2:00 PM CDT Body Mass Index 32.28 05/05/2006 2:00 PM CDT documented in this encounter Plan of Treatment Upcoming Encounters Date Type Department Care Team (Late st Contact Info) Description 12/11/2024 10:30 AM CLERICAL AND OFFICE SUPPORT WORKERS Video Visit [facility] Internal Medicine [place] [facility] [address] [facility] [facility] [address] [place] [address] Laura Pritchard, MARYJO [address] [facility] [address] [place] [address] 07/07/2025 11:00 AM CDT Office Visit [facility] Internal Medicine [facility] [address] [facility] [address] [place] [address] Johnny Davis MD [address] [facility] [address] [place], [place] [phone] documented as of this encounter Visit Diagnoses Not on filedocumented in this encounter Additional Health Concerns Infection Onset Date Last Indicated Resolved Time R/O COVID-19 09/26/2019 09/26/2019 09/26/2019 2:08 PM CDT R/O COVID-19 09/26/2019 09/26/2019 09/26/2019 3:24 PM CDT R/O COVID-19 09/26/2019 09/26/2019 09/28/2019 2:36 AM CDT documented as of this encounter Care Teams Electroplating Technician Relationship Specialty Start Date End Date Johnny Davis MD [address] [facility] [address] [place] [address] PCP - General Internal Medicine 12/12/12 sohan 01/26/16 01/26/16 Parminder Sohan 01/26/16 [facility] 01/26/16 PROVIDER PLUS 10/25/18 documented as of this encounter
--- OUTSIDE RECORDS SUMMARY | 2024-09-26 16:40 | XMS_ITS | Encounter Summary ---
Author Organization [facility] Address [address] [place] [address] Care Team Providers Care Blood Bank Supervisor Name Role Phone Johnny Davis MD Primary Care Provider [phone] Encounter Details Date Type Department Care Team (Late st Contact Info) Description 04/18/2006 Orders Only [facility] Internal Medicine [facility] [address] [facility] 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 [facility] [address] [place] [address] Laura Pritchard, MARYJO [address] [place] [address] 07/07/2025 11:00 AM CDT Office Visit [facility] Internal Medicine [facility] [address] [facility] [facility] [address] [place] [address] Johnny Davis MD [address] [phone] documented as of this encounter Visit Diagnoses Not on filedocumented in this encounter Additional Health Concerns Infection Onset Date Last Indicated Resolved Time R/O COVID-19 09/26/2019 09/26/2019 09/26/2019 2:08 PM CDT R/O COVID-19 09/26/2019 09/26/2019 09/26/2019 3:24 PM CDT R/O COVID-19 09/26/2019 09/26/2019 09/28/2019 2:36 AM CDT documented as of this encounter Care Teams Blood Bank Supervisor Relationship Specialty Start Date End Date Johnny Davis MD [address] [place] [address] PCP - General Internal Medicine 12/12/12 noe 01/26/16 01/26/16 Parminderoc Parry 01/26/16 [facility] 01/26/16 PROVIDER PLUS 10/25/18 documented as of this encounter
--- OUTSIDE RECORDS SUMMARY | 2024-09-26 16:40 | XMS_ITS | Encounter Summary ---
Author Organization [facility] Address [address] [place] [address] Care Team Providers Care Headwaiter/Headwaitress Name Role Phone Johnny Davis MD Primary Care Provider [phone] Encounter Details Date Type Department Care Team (Late st Contact Info) Description 08/11/1998 Outpatient Historical [facility] Internal Medicine [facility] [address] [facility] [address] [facility] [address] [place] [address] Johnny Davis MD [address] [facility] [address] [place] [address] Social History Tobacco Use Types Packs/Day Years Used Date Smoking Tobacco: Never Assessed Comments Unknown Sex and Gender Information Value Date Recorded Sex Assigned at Not on file Legal Sex Female 4:28 AM PUBLIC ADDRESS 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 Gender Identity Not on file Sexual Orientation Not on file documented as of this encounter Plan of Treatment Upcoming Encounters Date Type Department Care Team (Late st Contact Info) Description 12/11/2024 10:30 AM PUBLIC ADDRESS 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 Video Visit [facility] Internal Medicine [facility] [address] [facility] [address] [place] [address] Laura Pritchard, MARYJO [address] [place] [address] 07/07/2025 11:00 AM CDT Office Visit [facility] Internal Medicine [facility] [address] [facility] [address] [place] [address] Johnny Davis MD [address] [phone] documented as of this encounter Visit Diagnoses Not on filedocumented in this encounter Additional Health Concerns Infection Onset Date Last Indicated Resolved Time R/O COVID-19 09/26/2019 09/26/2019 09/26/2019 2:08 PM CDT R/O COVID-19 09/26/2019 09/26/2019 09/26/2019 3:24 PM CDT R/O COVID-19 09/26/2019 09/26/2019 09/28/2019 2:36 AM CDT documented as of this encounter Care Teams Headwaiter/Headwaitress Relationship Specialty Start Date End Date Johnny Davis MD [address] [place] [address] PCP - General Internal Medicine 12/12/12 noe 01/26/16 01/26/16 Parminderoc Parry 01/26/16 [facility] 01/26/16 PROVIDER PLUS 10/25/18 documented as of this encounter
--- OUTSIDE RECORDS SUMMARY | 2024-09-26 16:40 | XMS_ITS | Encounter Summary ---
Author Organization [facility] Address [address] [place] [address] Care Team Providers Care Diffusion Operator Name Role Phone Johnny Davis MD Primary Care Provider [phone] Encounter Details Date Type Department Care Team (Late st Contact Info) Description 05/02/2005 Orders Only [facility] Internal Medicine Medical [place] [facility] [address] [facility] [address] [place] [phone] Johnny Davis MD [address] [facility] [address] [place] [address] Social History Tobacco Use Types Packs/Day Years Used Date Smoking Tobacco: Never Assessed Comments Unknown Sex and Gender Information Value Date Recorded Sex Assigned at Not on file Legal Sex Female 4:28 AM SOIL AND PLANT SCIENTIST Gender Identity Not on file Sexual Orientation Not on file documented as of this encounter Progress Notes * Johnny Davis MD - 11/15/2007 7:30 PM CDT WEIGHT: 172lbs BLOOD PRESSURE: 140/80 Right Arm Sitting TEMPERATURE: 97.6??f Oral PULSE: 74 Left Radial, Regular NURSE NAME: Eda Isaac A ALLERGIES: No known drug allergies. MEDICATIONS: RN/MA reviewed medications.DISCUSS CITALOPRAM AND ZOLOFT-D/C ONE? CHIEF COMPLAINT Here for follow up evaluation. HISTORY: HISTORY: 729.1-FIBROMYALGIA The patient's myalgia has worsened. No complications noted from the medication presently being used. 780.39-SEIZURE in hospital and witnessed seizure activity , NORMAL video EEG at the time, dx with pseudoseizure, under tremendous stress at work. Not going to get any better and cannot change jobs. ROS: GENERAL: Normal activity, FEELS FATIGUED, TIRES EASILY, HAS LOST WEIGHT. CARDIAC: No chest pain, palpitations, orthopnea, dyspnea on exertion, or paroxysmal nocturnal dyspnea. RESPIRATORY: No dyspnea, cough, hemoptysis or wheezing. : No frequency, urgency, hematuria or dysuria. GI: No abdominal pain, nausea, vomiting, diarrhea, constipation, melena, or hematochezia. SOCIAL HISTORY: TOBACCO USE: Currently smokes 1 PPD. 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 EXERCISES: The patient is not exercising regularly. PHYSICAL EXAMINATION: CONSTITUTIONAL: GENERAL APPEARANCE: Healthy appearing patient in no distress. EARS, NOSE, MOUTH AND THROAT: NECK/THYROID: Trachea midline. No thyroid enlargement, tenderness, or mass. No supraclavicular or cervical adenopathy. RESPIRATORY: Clear to auscultation and percussion. Normal respiratory effort. CARDIOVASCULAR: CARDIAC: Regular rhythm. No murmurs, rubs, or gallops. ARTERIAL: Aortic pulses of normal amplitude with no bruits. EDEMA/VARICOSITIES OF EXTREMITIES: No edema or varicosities. GASTROINTESTINAL: ABDOMEN: Soft, non-tender, without masses. Bowel sounds active. LIVER/SPLEEN/KIDNEY: No hepatosplenomegaly, tenderness or nodularity. Kidneys not palpable. ASSESSMENT/PLAN: 729.1-FIBROMYALGIA ASSESSMENT: The patient's myalgia worsened. Will not change medication, continue to monitor for complications. Clinical guidelines reviewed. 300.00-ANXIETY ASSESSMENT: The patient's anxiety has worsened. Current medication is not effective, will change medication for better control. MEDICATIONS: CITALOPRAM HYDROBROMIDE ORAL TABLET 20 MG, 1 Every Day, 30 Dispensed, 5 Fills, status: DISCONTINUED, 05/02/2005. CITALOPRAM HYDROBROMIDE ORAL TABLET 40 MG, 1 Every Day, 30 Dispensed, 5 Fills, status: NEW PRESCRIPTION, 05/02/2005. ALPRAZOLAM ORAL TABLET 0.25 MG, 1 Three Times A Day, As Needed, 90 Dispensed, 5 Fills, status: CONTINUED, 05/02/2005. D/C Zoloft. SPECIALTY REFERRAL: RHEUMATOLOGY Dr. Steven Perez ph: [phone] fax [phone]. PREVENTIVE COUNSELING The patient was counseled regarding diet, regular sustained exercise for at least 30 minutes 3-4 times per week. RETURN VISIT : Patient instructed to return in 1 month. Electronically Signed by: Johnny Davis MD on Monday, May 02, 2005 documented in this encounter Plan of Treatment Upcoming Encounters Date Type Department Care Team (Late st Contact Info) Description 12/11/2024 10:30 AM SOIL AND PLANT SCIENTIST Video Visit [facility] Internal Medicine [place] [address] [phone] Laura Pritchard NP [address] [phone] 07/07/2025 11:00 AM CDT Office Visit [facility] Internal Medicine [facility] [address] [phone] Johnny Davis MD [address] [id number] documented as of this encounter Visit Diagnoses Not on filedocumented in this encounter Additional Health Concerns Infection Onset Date Last Indicated Resolved Time R/O COVID-19 09/26/2019 09/26/2019 09/26/2019 2:08 PM CDT R/O COVID-19 09/26/2019 09/26/2019 09/26/2019 3:24 PM CDT R/O COVID-19 09/26/2019 09/26/2019 09/28/2019 2:36 AM CDT documented as of this encounter Care Teams Diffusion Operator Relationship Specialty Start Date End Date Johnny Davis MD [address] [place] [id number] PCP - General Internal Medicine 12/12/12 noe 01/26/16 01/26/16 Parminder Parry 01/26/16 [facility] 01/26/16 PROVIDER PLUS 10/25/18 documented as of this encounter
--- OUTSIDE RECORDS SUMMARY | 2024-09-26 16:40 | XMS_ITS | Encounter Summary ---
Author Organization [facility] Address [address] [place] [address] Care Team Providers Care Emissions Inspector Name Role Phone Johnny Davis MD Primary Care Provider [phone] Encounter Details Date Type Department Care Team (Late st Contact Info) Description 07/13/2002 Emergency [facility] Mariia Card , Authorized P NO ADDRESS ON FILE SPRAIN SHOULDER/ARM NOS (Primary Dx) Social History Tobacco Use Types Packs/Day Years Used Date Smoking Tobacco: Never Assessed Comments Unknown Sex and Gender Information Value Date Recorded Sex Assigned at Not on file Legal Sex Female 4:28 AM CERAMIC PAINTER Gender Identity Not on file Sexual Orientation Not on file documented as of this encounter Plan of Treatment Upcoming Encounters Date Type Department Care Team (Late st Contact Info) Description 12/11/2024 10:30 AM CERAMIC PAINTER Video Visit [facility] Internal Medicine [facility] [address] [facility] [address] [place] [address] Laura Pritchard NP [address] [place] [place] [address] 07/07/2025 11:00 AM CDT Office Visit [facility] Internal Medicine [facility] [address] [facility] [address] [place] [address] Johnny Davis MD [address] [facility] [address] [place] [address] documented as of this encounter Visit Diagnoses Diagnosis Sprain and strain of unspecified site of shoulder and upper arm- Primary documented in this encounter Additional Health Concerns Infection Onset Date Last Indicated Resolved Time R/O COVID-19 09/26/2019 09/26/2019 09/26/2019 2:08 PM CDT R/O COVID-19 09/26/2019 09/26/2019 09/26/2019 3:24 PM CDT R/O COVID-19 09/26/2019 09/26/2019 09/28/2019 2:36 AM CDT documented as of this encounter Care Teams Emissions Inspector Relationship Specialty Start Date End Date Johnny Davis MD [address] [place] [address] PCP - General Internal Medicine 12/12/12 noe 01/26/16 01/26/16 Parminder Parry 01/26/16 [facility] 01/26/16 PROVIDER PLUS 10/25/18 documented as of this encounter
--- OUTSIDE RECORDS SUMMARY | 2024-09-26 16:40 | XMS_ITS | Encounter Summary ---
Author Organization [facility] Address [address] [place] [address] Care Team Providers Care Color Paste Mixing Supervisor Name Role Phone Johnny Davis MD Primary Care Provider Encounter Details Date Type Department Care Team (Late st Contact Info) Description 12/24/2001 Outpatient Historical [facility] Internal Medicine [facility] [address] [facility] [address] [place] [address] Johnny Davis MD [address] [facility] [address] [place] [address] Social History Tobacco Use Types Packs/Day Years Used Date Smoking Tobacco: Never Assessed Comments Unknown Sex and Gender Information Value Date Recorded Sex Assigned at Not on file Legal Sex Female 4:28 AM MEDICAL SERVICES MANAGER Gender Identity Not on file Sexual Orientation Not on file documented as of this encounter Plan of Treatment Upcoming Encounters Date Type Department Care Team (Late st Contact Info) Description 12/11/2024 10:30 AM MEDICAL SERVICES MANAGER Video Visit [facility] Internal Medicine [facility] [address] [facility] [address] [place] [address] Laura Pritchard, MARYJO [address] [place] [address] 07/07/2025 11:00 AM CDT Office Visit [facility] Internal Medicine [facility] [address] [facility] [address] [place] [address] Johnny Davis MD [address] [phone] documented as of this encounter Visit Diagnoses Not on filedocumented in this encounter Additional Health Concerns Infection Onset Date Last Indicated Resolved Time R/O COVID-19 09/26/2019 09/26/2019 09/26/2019 2:08 PM CDT R/O COVID-19 09/26/2019 09/26/2019 09/26/2019 3:24 PM CDT R/O COVID-19 09/26/2019 09/26/2019 09/28/2019 2:36 AM CDT documented as of this encounter Care Teams Color Paste Mixing Supervisor Relationship Specialty Start Date End Date Johnny Davis MD [address] [place] [id number] PCP - General Internal Medicine 12/12/12 noe 01/26/16 01/26/16 Parminderoc Parry 01/26/16 [facility] 01/26/16 PROVIDER PLUS 10/25/18 documented as of this encounter
--- OUTSIDE RECORDS SUMMARY | 2024-09-26 16:40 | XMS_ITS | Encounter Summary ---
Author Organization [facility] Address [address] [place] [address] Care Team Providers Care Salvage Diver Name Role Phone Johnny Davis MD Primary Care Provider Encounter Details Date Type Department Care Team (Late st Contact Info) Description 04/19/2002 Outpatient Historical [facility] Internal Medicine [facility] [address] [facility] [address] [place] [address] Johnny Davis MD [address] [facility] [address] [place] [address] Social History Tobacco Use Types Packs/Day Years Used Date Smoking Tobacco: Never Assessed Comments Unknown Sex and Gender Information Value Date Recorded Sex Assigned at Not on file Legal Sex Female 4:28 AM TAPE TRANSFERRER Gender Identity Not on file Sexual Orientation Not on file documented as of this encounter Plan of Treatment Upcoming Encounters Date Type Department Care Team (Late st Contact Info) Description 12/11/2024 10:30 AM TAPE TRANSFERRER Video Visit [facility] Internal Medicine [facility] [address] [facility] [address] [place] [address] Laura Pritchard, MARYJO [address] [place] [address] 07/07/2025 11:00 AM CDT Office Visit [facility] Internal Medicine [facility] [address] [facility] [address] [place] [address] Johnny Davis MD [address] [phone] documented as of this encounter Visit Diagnoses Not on filedocumented in this encounter Additional Health Concerns Infection Onset Date Last Indicated Resolved Time R/O COVID-19 09/26/2019 09/26/2019 09/26/2019 2:08 PM CDT R/O COVID-19 09/26/2019 09/26/2019 09/26/2019 3:24 PM CDT R/O COVID-19 09/26/2019 09/26/2019 09/28/2019 2:36 AM CDT documented as of this encounter Care Teams Salvage Diver Relationship Specialty Start Date End Date Johnny Davis MD [address] [place] [address] PCP - General Internal Medicine 12/12/12 noe 01/26/16 01/26/16 Parminderoc Parry 01/26/16 [facility] 01/26/16 PROVIDER PLUS 10/25/18 documented as of this encounter
--- OUTSIDE RECORDS SUMMARY | 2024-09-26 16:40 | XMS_ITS | Encounter Summary ---
Author Organization [facility] Address [address] [place] [address] Care Team Providers Care Policy Change Clerks Supervisor Name Role Phone Johnny Davis MD Primary Care Provider Encounter Details Date Type Department Care Team (Late st Contact Info) Description 05/02/2005 Outpatient Historical [facility] Internal Medicine Medical [place] [facility] [address] [facility] [address] [place] [address] Johnny Davis MD [address] [place], [place] [address] [place] [address] Social History Tobacco Use Types Packs/Day Years Used Date Smoking Tobacco: Never Assessed Comments Unknown Sex and Gender Information Value Date Recorded Sex Assigned at Not on file Legal Sex Female 4:28 AM ARNP Gender Identity Not on file Sexual Orientation Not on file documented as of this encounter Last Filed Vital Signs Vital Sign Reading Time Taken Comments Blood Pressure 140/80 05/02/2005 10:15 AM ARNP Pulse 74 05/02/2005 10:15 AM ARNP Temperature 36.4 C (97.6 F) 05/02/2005 10:15 AM ARNP Respiratory Rate - - Oxygen Saturation - - Inhaled Oxygen Concentration - - Weight 78 kg (172 lb) 05/02/2005 10:15 AM ARNP Height - - Body Mass Index - - documented in this encounter Plan of Treatment Upcoming Encounters Date Type Department Care Team (Late st Contact Info) Description 12/11/2024 10:30 AM ARNP Video Visit [facility] Internal Medicine Medical [place] [facility] [address] [facility] [address] [place] [address] Laura Pritchard, MARYJO [address] [facility] [address] [place] [phone] 07/07/2025 11:00 AM CDT Office Visit [facility] Internal Medicine Medical [place] [facility] [address] [facility] [address] [place] [phone] Johnny Davis MD [address] [facility] [address] [place] [address] documented as of this encounter Visit Diagnoses Not on filedocumented in this encounter Additional Health Concerns Infection Onset Date Last Indicated Resolved Time R/O COVID-19 09/26/2019 09/26/2019 09/26/2019 2:08 PM CDT R/O COVID-19 09/26/2019 09/26/2019 09/26/2019 3:24 PM CDT R/O COVID-19 09/26/2019 09/26/2019 09/28/2019 2:36 AM CDT documented as of this encounter Care Teams Policy Change Clerks Supervisor Relationship Specialty Start Date End Date Johnny Davis MD [address] [facility] [address] [place] [address] PCP - General Internal Medicine 12/12/12 noe 01/26/16 01/26/16 Parminder Parry 01/26/16 [facility] 01/26/16 PROVIDER PLUS 10/25/18 documented as of this encounter
--- OUTSIDE RECORDS SUMMARY | 2024-09-26 16:40 | XMS_ITS | Encounter Summary ---
Author Organization [facility] Address [address] [place] [address] Care Team Providers Care Care Advocate Name Role Phone Johnny Davis MD Primary Care Provider Encounter Details Date Type Department Care Team (Late st Contact Info) Description 04/24/2005 Outpatient Historical [facility] Adult Critical Care [address] [address] Luz Maria Hernandez MD Social History Tobacco Use Types Packs/Day Years Used Date Smoking Tobacco: Never Assessed Comments Unknown Sex and Gender Information Value Date Recorded Sex Assigned at Not on file Legal Sex Female 4:28 AM MANAGER CODING Gender Identity Not on file Sexual Orientation Not on file documented as of this encounter Plan of Treatment Upcoming Encounters Date Type Department Care Team (Late st Contact Info) Description 12/11/2024 10:30 AM MANAGER CODING Video Visit [facility] Internal Medicine [facility] [address] [facility] [address] [place] [address] Laura Pritchard NP [address] [place] [address] 07/07/2025 11:00 AM CDT Office Visit [facility] Internal Medicine [facility] [address] [facility] [address] [place] [address] Johnny Davis MD [address] [facility] [address] [address] documented as of this encounter Visit Diagnoses Not on filedocumented in this encounter Additional Health Concerns Infection Onset Date Last Indicated Resolved Time R/O COVID-19 09/26/2019 09/26/2019 09/26/2019 2:08 PM CDT R/O COVID-19 09/26/2019 09/26/2019 09/26/2019 3:24 PM CDT R/O COVID-19 09/26/2019 09/26/2019 09/28/2019 2:36 AM CDT documented as of this encounter Care Teams Care Advocate Relationship Specialty Start Date End Date Johnny Davis MD [address] [place] [address] [address] [address] PCP - General Internal Medicine 12/12/12 noe 01/26/16 01/26/16 Parminder Parry 01/26/16 [facility] 01/26/16 PROVIDER PLUS 10/25/18 documented as of this encounter
--- OUTSIDE RECORDS SUMMARY | 2024-09-26 16:40 | XMS_ITS | Encounter Summary ---
Author Organization [facility] Address [address] [place] [address] Care Team Providers Care Framing Machine Tender Name Role Phone Johnny Davis MD Primary Care Provider Encounter Details Date Type Department Care Team (Late st Contact Info) Description 04/10/2006 Outpatient Historical [facility] [address] [facility] [place], [place] [phone] Murray Moser MD [address] [facility] [address] [place], [place] [phone] Social History Tobacco Use Types Packs/Day Years Used Date Smoking Tobacco: Never Assessed Comments Unknown Sex and Gender Information Value Date Recorded Sex Assigned at Not on file Legal Sex Female 4:28 AM ACID PURIFICATION EQUIPMENT OPERATOR Gender Identity Not on file Sexual Orientation Not on file documented as of this encounter Plan of Treatment Upcoming Encounters Date Type Department Care Team (Late st Contact Info) Description 12/11/2024 10:30 AM ACID PURIFICATION EQUIPMENT OPERATOR Video Visit [facility] [address] [facility] [address] [address] Laura Pritchard NP [address] [facility] [address] [place] [address] 07/07/2025 11:00 AM CDT Office Visit [facility] [address] [facility] [address] [address] Johnny Davis MD [address] [place] [address] documented as of this encounter Visit Diagnoses Not on filedocumented in this encounter Additional Health Concerns Infection Onset Date Last Indicated Resolved Time R/O COVID-19 09/26/2019 09/26/2019 09/26/2019 2:08 PM CDT R/O COVID-19 09/26/2019 09/26/2019 09/26/2019 3:24 PM CDT R/O COVID-19 09/26/2019 09/26/2019 09/28/2019 2:36 AM CDT documented as of this encounter Care Teams Framing Machine Tender Relationship Specialty Start Date End Date Johnny Davis MD [address] [place] [id number] PCP - General Internal Medicine 12/12/12 noe 01/26/16 01/26/16 Parminder Parry 01/26/16 [facility] 01/26/16 PROVIDER PLUS 10/25/18 documented as of this encounter
--- OUTSIDE RECORDS SUMMARY | 2024-09-26 16:40 | XMS_ITS | Encounter Summary ---
Author Organization [facility] Address [address] [place] [address] Care Team Providers Care Steel Plate Printer Name Role Phone Johnny Davis MD Primary Care Provider Encounter Details Date Type Department Care Team (Latest Contact Info) Description 11/12/2001 Inpatient Historical [facility] Johnny Davis MD [address] [place] [address] [address] [place] [address] NONINFEC GASTROENTERIT NEC (Primary Dx) Social History Tobacco Use Types Packs/Day Years Used Date Smoking Tobacco: Never Assessed Comments Unknown Sex and Gender Information Value Date Recorded Sex Assigned at Not on file Legal Sex Female 4:28 AM PLATE FURNACE OPERATOR Gender Identity Not on file Sexual Orientation Not on file documented as of this encounter Plan of Treatment Upcoming Encounters Date Type Department Care Team (Late st Contact Info) Description 12/11/2024 10:30 AM PLATE FURNACE OPERATOR Video Visit [facility] Internal Medicine [facility] [address] [facility] [address] [place] [address] Laura Pritchard NP [address] [facility] [address] [place] [address] 07/07/2025 11:00 AM CDT Office Visit [facility] Internal Medicine [facility] [address] [facility] [address] [place] [address] Johnny Davis MD [address] [facility] [address] [place] [address] documented as of this encounter Visit Diagnoses Diagnosis Other and unspecified noninfectious gastroenteritis and colitis(558.9)- Primary Other and unspecified noninfectious gastroenteritis and colitis documented in this encounter Additional Health Concerns Infection Onset Date Last Indicated Resolved Time R/O COVID-19 09/26/2019 09/26/2019 09/26/2019 2:08 PM CDT R/O COVID-19 09/26/2019 09/26/2019 09/26/2019 3:24 PM CDT R/O COVID-19 09/26/2019 09/26/2019 09/28/2019 2:36 AM CDT documented as of this encounter Care Teams Steel Plate Printer Relationship Specialty Start Date End Date Johnny Davis MD [address] [address] PCP - General Internal Medicine 12/12/12 noe 01/26/16 01/26/16 Parminderoc Parry 01/26/16 [facility] 01/26/16 PROVIDER PLUS 10/25/18 documented as of this encounter
--- OUTSIDE RECORDS SUMMARY | 2024-09-26 16:40 | XMS_ITS | Encounter Summary ---
Author Organization [facility] Address [address] [place] [address] Care Team Providers Care Egg Trayer Name Role Phone Johnny Davis MD Primary Care Provider Encounter Details Date Type Department Care Team (Late st Contact Info) Description 01/12/2006 Emergency [facility] Ashleigh Mario MD NO ADDRESS ON FILE Er, Authorized P NO ADDRESS ON FILE Diverticulitis of Colon (without Mention of Hemorrhage) (Primary Dx) Social History Tobacco Use Types Packs/Day Years Used Date Smoking Tobacco: Never Assessed Comments Unknown Sex and Gender Information Value Date Recorded Sex Assigned at Not on file Legal Sex Female 4:28 AM CHILD DEVELOPMENT TEACHER Gender Identity Not on file Sexual Orientation Not on file documented as of this encounter Plan of Treatment Upcoming Encounters Date Type Department Care Team (Late st Contact Info) Description 12/11/2024 10:30 AM CHILD DEVELOPMENT TEACHER Video Visit [facility] Internal Medicine [facility] [address] [facility] [address] [place] [address] Laura Pritchard, MARYJO [address] [place] [address] 07/07/2025 11:00 AM CDT Office Visit [facility] Internal Medicine [facility] [address] [facility] [address] [place] [address] Johnny Davis MD [address] [facility] [address] [place] [address] documented as of this encounter Procedures Procedure Name Priority Date/Time Associated Diagnosis Comments PT AND APTT Routine 01/12/2006 5:12 PM CHILD DEVELOPMENT TEACHER CBC WITH DIFFERENTIAL Routine 01/12/2006 5:11 PM CHILD DEVELOPMENT TEACHER CBC WITH DIFFERENTIAL Routine 01/12/2006 5:11 PM CHILD DEVELOPMENT TEACHER documented in this encounter Results * PT AND APTT (01/12/2006 5:12 PM CHILD DEVELOPMENT TEACHER) PROTIME 13.3 12.7 - 15.1 Seconds INTERFACE SYSTEM INR 1.0 0.9 - 1.1 INTERFACE SYSTEM Comment: INR Therapeutic Range: Adult: 2.0 - 3.0 for pulmonary embolism or prophylaxis against venous thrombosis or systemic embolization. 2.0 - 3.0 for patients with tissue heart valves. 2.5 - 3.5 for patients with mechanical heart valves or post [place]. Pediatric (12 years and under): 1.5 - 3.0 Although the target range in children is not well established , INR values of 1.5 - 3.0 are recommended for most patients. Higher values have been used in children with prosthetic cardiac valves and hereditary clotting disorders. (<3 days) therapeutic ranges have not been established. PTT 31.3 24.4 - 36.4 Seconds INTERFACE SYSTEM Comment: PTT Therapeutic Range: Heparin Level PTT (seconds) <0.10 units/mL <53 0.10 - 0.30 units/mL 53 - 67 0.30 - 0.70 units/mL* 67 - 95* 0.70 - 1.00 units/mL 95 - 116 *corresponds to therapeutic range for unfractionated heparin 01/12/2006 5:12 PM CHILD DEVELOPMENT TEACHER us Ashleigh Hardin MD HEMATOLOGY ORDERABLES Final R esult INTERFACE SYSTEM Refer to clinic/hospital department * CBC WITH DIFFERENTIAL (01/12/2006 5:11 PM CHILD DEVELOPMENT TEACHER) NEUTROPHILS 54 45 - 70 % INTERFAC E SYSTEM LYMPHOCYTES 35 16 - 45 % INTERFAC E SYSTEM MONOCYTES 7 3 - 13 % INTERFACE SYSTEM EOSINOPHILS 5 0 - 7 % INTERFAC E SYSTEM BASOPHILS 0 0 - 2 % INTERFACE SYSTEM NEUTROPHIL ABSOLUTE 6.40 1.90 - 7.00 K/uL INTERFACE SYSTEM LYMPHOCYTE ABSOLUTE 4.11 0.70 - 4.50 K/uL INTERFACE SYSTEM MONOCYTE ABSOLUTE 0.80 0.10 - 1.30 K/uL INTERFACE SYSTEM EOSINOPHIL ABSOLUTE 0.53 0.00 - 0.70 K/uL INTERFACE SYSTEM BASOPHILS ABSOLUTE 0.05 0.00 - 0.20 K/uL INTERFACE SYSTEM 01/12/2006 5:11 PM CHILD DEVELOPMENT TEACHER Ashleigh Hardin MD HEMATOLOGY ORDERABLES Final R esult INTERFACE SYSTEM Refer to clinic/hospital department * (ABNORMAL) CBC WITH DIFFERENTIAL (01/12/2006 5:11 PM CHILD DEVELOPMENT TEACHER) WBC 11.9(H) 4.0 - 9.8 K/uL INTERFACE SYSTEM RBC 4.48 3.90 - 4.90 M/uL INTERFACE SYSTEM HEMOGLOBIN 13.1 11.8 - 14.8 g/dL INTERFACE SYSTEM HEMATOCRIT 39.0 35.5 - 44.0 % INTERFACE SYSTEM MCV 87.1 82.0 - 99.0 fL INTERFACE SYSTEM MCH 29.2 27.2 - 32.6 pg INTERFACE SYSTEM MCHC 33.6 31.5 - 35.5 % INTERFACE SYSTEM RDW 14.1 11.5 - 14.5 % INTERFACE SYSTEM RDW-STDEV 45.0 37.1 - 48.7 fL INTERFACE SYSTEM PLATELETS 320 140 - 350 K/uL INTERFACE SYSTEM MPV 9.9 9.3 - 12.4 fL INTERFACE SYSTEM 01/12/2006 5:11 PM CHILD DEVELOPMENT TEACHER Ashleigh Hardin MD HEMATOLOGY ORDERABLES Final R esult INTERFACE SYSTEM Refer to clinic/hospital department documented in this encounter Visit Diagnoses Diagnosis Diverticulitis of colon (without mention of hemorrhage)(562.11)- Primary Diverticulitis of colon (without mention of hemorrhage) documented in this encounter Additional Health Concerns Infection Onset Date Last Indicated Resolved Time R/O COVID-19 09/26/2019 09/26/2019 09/26/2019 2:08 PM CDT R/O COVID-19 09/26/2019 09/26/2019 09/26/2019 3:24 PM CDT R/O COVID-19 09/26/2019 09/26/2019 09/28/2019 2:36 AM CDT documented as of this encounter Care Teams Egg Trayer Relationship Specialty Start Date End Date Johnny Davis MD [address] [place] [id number] PCP - General Internal Medicine 12/12/12 noe 01/26/16 01/26/16 Parminder Parry 01/26/16 [facility] 01/26/16 PROVIDER PLUS 10/25/18 documented as of this encounter
--- OUTSIDE RECORDS SUMMARY | 2024-09-26 16:40 | XMS_ITS | Encounter Summary ---
Author Organization [facility] Address [address] [place] [address] Care Team Providers Care Adventure Therapist Name Role Phone Johnny Davis MD Primary Care Provider Encounter Details Date Type Department Care Team (Late st Contact Info) Description 06/22/1998 Outpatient Historical [facility] Internal Medicine [facility] [address] [facility] [address] [place] [address] Johnny Davis MD [address] [facility] [address] [place] [address] Social History Tobacco Use Types Packs/Day Years Used Date Smoking Tobacco: Never Assessed Comments Unknown Sex and Gender Information Value Date Recorded Sex Assigned at Not on file Legal Sex Female 4:28 AM AUTO CLEANER Gender Identity Not on file Sexual Orientation Not on file documented as of this encounter Plan of Treatment Upcoming Encounters Date Type Department Care Team (Late st Contact Info) Description 12/11/2024 10:30 AM AUTO CLEANER Video Visit [facility] Internal Medicine [facility] [address] [facility] [address] [place] [address] Laura Pritchard, MARYJO [address] [place] [address] 07/07/2025 11:00 AM CDT Office Visit [facility] Internal Medicine [facility] [address] [facility] [address] [place] [address] Johnny Davis MD [address] [phone] documented as of this encounter Visit Diagnoses Not on filedocumented in this encounter Additional Health Concerns Infection Onset Date Last Indicated Resolved Time R/O COVID-19 09/26/2019 09/26/2019 09/26/2019 2:08 PM CDT R/O COVID-19 09/26/2019 09/26/2019 09/26/2019 3:24 PM CDT R/O COVID-19 09/26/2019 09/26/2019 09/28/2019 2:36 AM CDT documented as of this encounter Care Teams Adventure Therapist Relationship Specialty Start Date End Date Johnny Davis MD [address] [place] [id number] PCP - General Internal Medicine 12/12/12 noe 01/26/16 01/26/16 Parminderoc Parry 01/26/16 [facility] 01/26/16 PROVIDER PLUS 10/25/18 documented as of this encounter
--- OUTSIDE RECORDS SUMMARY | 2024-09-26 16:40 | XMS_ITS | Encounter Summary ---
Author Organization [facility] Address [address] [place] [address] Care Team Providers Care Family Resource Specialist Name Role Phone Johnny Davis MD Primary Care Provider Encounter Details Date Type Department Care Team (Late st Contact Info) Description 12/26/2003 Outpatient Historical [facility] Internal Medicine [facility] [address] [facility] [address] [place] [address] Johnny Davis MD [address] [facility] [address] [place] [address] Social History Tobacco Use Types Packs/Day Years Used Date Smoking Tobacco: Never Assessed Comments Unknown Sex and Gender Information Value Date Recorded Sex Assigned at Not on file Legal Sex Female 4:28 AM FOOD AND NUTRITION TEACHER Gender Identity Not on file Sexual Orientation Not on file documented as of this encounter Plan of Treatment Upcoming Encounters Date Type Department Care Team (Late st Contact Info) Description 12/11/2024 10:30 AM FOOD AND NUTRITION TEACHER Video Visit [facility] Internal Medicine [facility] [address] [facility] [address] [place] [address] Laura Pritchard, MARYJO [address] [place] [address] 07/07/2025 11:00 AM CDT Office Visit [facility] Internal Medicine [facility] [address] [facility] [address] [place] [address] Johnny Davis MD [address] [phone] documented as of this encounter Visit Diagnoses Not on filedocumented in this encounter Additional Health Concerns Infection Onset Date Last Indicated Resolved Time R/O COVID-19 09/26/2019 09/26/2019 09/26/2019 2:08 PM CDT R/O COVID-19 09/26/2019 09/26/2019 09/26/2019 3:24 PM CDT R/O COVID-19 09/26/2019 09/26/2019 09/28/2019 2:36 AM CDT documented as of this encounter Care Teams Family Resource Specialist Relationship Specialty Start Date End Date Johnny Davis MD [address] [place] [address] PCP - General Internal Medicine 12/12/12 noe 01/26/16 01/26/16 Parminderoc Parry 01/26/16 [facility] 01/26/16 PROVIDER PLUS 10/25/18 documented as of this encounter
--- OUTSIDE RECORDS SUMMARY | 2024-09-26 16:40 | XMS_ITS | Encounter Summary ---
Author Organization [facility] Address [address] [place] [address] Care Team Providers Care Copyright Expert Name Role Phone Johnny Davis MD Primary Care Provider Encounter Details Date Type Department Care Team (Latest Contact Info) Description 12/24/2001 Outpatient Historical [facility] Johnny Cullen MD [address] [place] [address] [address] [place] [address] CHRONIC AIRWAY OBSTRUCTION NEC (CMS/HCC) (Primary Dx) Social History Tobacco Use Types Packs/Day Years Used Date Smoking Tobacco: Never Assessed Comments Unknown Sex and Gender Information Value Date Recorded Sex Assigned at Not on file Legal Sex Female 4:28 AM CELL TESTER Gender Identity Not on file Sexual Orientation Not on file documented as of this encounter Plan of Treatment Upcoming Encounters Date Type Department Care Team (Late st Contact Info) Description 12/11/2024 10:30 AM CELL TESTER Video [facility] [address] [facility] [address] [address] Laura Pritchard NP [address] [place] [address] 07/07/2025 11:00 AM CDT Office Visit [facility] Internal [facility] [address] [facility] [address] [place] [address] Johnny Davis MD [address] [phone] documented as of this encounter Visit Diagnoses Diagnosis Chronic airway obstruction, not elsewhere classified (CMS/[facility])- Primary Chronic airway obstruction, not elsewhere classified documented in this encounter Additional Health Concerns Infection Onset Date Last Indicated Resolved Time R/O COVID-19 09/26/2019 09/26/2019 09/26/2019 2:08 PM CDT R/O COVID-19 09/26/2019 09/26/2019 09/26/2019 3:24 PM CDT R/O COVID-19 09/26/2019 09/26/2019 09/28/2019 2:36 AM CDT documented as of this encounter Care Teams Copyright Expert Relationship Specialty Start Date End Date Johnny Davis MD [address] [address] PCP - General Internal Medicine 12/12/12 noe 01/26/16 01/26/16 Parminder Parry 01/26/16 [facility] 01/26/16 PROVIDER PLUS 10/25/18 documented as of this encounter
--- OUTSIDE RECORDS SUMMARY | 2024-09-26 16:40 | XMS_ITS | Encounter Summary ---
Author Organization [facility] Address [address] [place] [address] Care Team Providers Care Printing Manager Name Role Phone Johnny Davis MD Primary Care Provider Encounter Details Date Type Department Care Team (Late st Contact Info) Description 04/24/2005 Outpatient Historical Division of Neurology [address] [address] Sung Nazario MD [address] [address] Social History Tobacco Use Types Packs/Day Years Used Date Smoking Tobacco: Never Assessed Comments Unknown Sex and Gender Information Value Date Recorded Sex Assigned at Not on file Legal Sex Female 4:28 AM MANIPULATOR OPERATOR Gender Identity Not on file Sexual Orientation Not on file documented as of this encounter Plan of Treatment Upcoming Encounters Date Type Department Care Team (Late st Contact Info) Description 12/11/2024 10:30 AM MANIPULATOR OPERATOR Video Visit [facility] Internal Medicine [facility] [place] [facility] [address] [address] Laura Pritchard NP [address] [place] [address] 07/07/2025 11:00 AM CDT Office Visit [facility] Internal Medicine [facility] [place] [facility] [address] [address] Johnny Davis MD [address] [id number] documented as of this encounter Visit Diagnoses Not on filedocumented in this encounter Additional Health Concerns Infection Onset Date Last Indicated Resolved Time R/O COVID-19 09/26/2019 09/26/2019 09/26/2019 2:08 PM CDT R/O COVID-19 09/26/2019 09/26/2019 09/26/2019 3:24 PM CDT R/O COVID-19 09/26/2019 09/26/2019 09/28/2019 2:36 AM CDT documented as of this encounter Care Teams Printing Manager Relationship Specialty Start Date End Date Johnny Davis MD [address] [address] PCP - General Internal Medicine 12/12/12 noe 01/26/16 01/26/16 Parminder Parry 01/26/16 [facility] 01/26/16 PROVIDER PLUS 10/25/18 documented as of this encounter
--- OUTSIDE RECORDS SUMMARY | 2024-09-26 16:40 | XMS_ITS | Encounter Summary ---
Author Organization [facility] Address [address] [place] [address] Care Team Providers Care Bilingual Sales Consultant Name Role Phone Johnny Davis MD Primary Care Provider Encounter Details Date Type Department Care Team (Late st Contact Info) Description 02/27/[address] [facility] Internal Medicine [facility] [address] [facility] [address] [place] [address] Lobito Grossman MD NO ADDRESS ON FILE Social History Tobacco Use Types Packs/Day Years Used Date Smoking Tobacco: Never Assessed Comments Unknown Sex and Gender Information Value Date Recorded Sex Assigned at Not on file Legal Sex Female 4:28 AM DRIFTMAN Gender Identity Not on file Sexual Orientation Not on file documented as of this encounter Plan of Treatment Upcoming Encounters Date Type Department Care Team (Late st Contact Info) Description 12/11/2024 10:30 AM DRIFTMAN Video Visit [facility] Internal Medicine [facility] [address] [facility] [address] [place] [address] Laura Pritchard NP [address] [facility] [address] [place] [address] 07/07/2025 11:00 AM CDT Office Visit [facility] Internal Medicine [facility] [address] [facility] [address] [place] [address] Johnny Davis MD [address] [facility] [address] [place] [address] documented as of this encounter Visit Diagnoses Not on filedocumented in this encounter Additional Health Concerns Infection Onset Date Last Indicated Resolved Time R/O COVID-19 09/26/2019 09/26/2019 09/26/2019 2:08 PM CDT R/O COVID-19 09/26/2019 09/26/2019 09/26/2019 3:24 PM CDT R/O COVID-19 09/26/2019 09/26/2019 09/28/2019 2:36 AM CDT documented as of this encounter Care Teams Bilingual Sales Consultant Relationship Specialty Start Date End Date Johnny Davis MD [address] [place] [address] PCP - General Internal Medicine 12/12/12 noe 01/26/16 01/26/16 Parminder Parry 01/26/16 [facility] 01/26/16 PROVIDER PLUS 10/25/18 documented as of this encounter
--- OUTSIDE RECORDS SUMMARY | 2024-09-26 16:40 | XMS_ITS | Encounter Summary ---
Author Organization [facility] Address [address] [place] [address] Care Team Providers Care Complaint Investigations Officer Name Role Phone Johnny Davis MD Primary Care Provider Encounter Details Date Type Department Care Team (Late st Contact Info) Description 06/10/2004 Outpatient Historical [facility] Internal Medicine [facility] [place] 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 Gender Identity Not on file Sexual Orientation Not on file documented as of this encounter Last Filed Vital Signs Vital Sign Reading Time Taken Comments Blood Pressure 130/72 06/10/2004 1:00 PM CDT Pulse 84 06/10/2004 1:00 PM CDT Temperature 36.7 C (98 F) 06/10/2004 1:00 PM CDT Respiratory Rate - - Oxygen Saturation - - Inhaled Oxygen Concentration - - Weight 81.6 kg (180 lb) 06/10/2004 1:00 PM CDT Height - - Body Mass Index - - documented in this encounter Plan of Treatment Upcoming Encounters Date Type Department Care Team (Late st Contact Info) Description 12/11/2024 10:30 AM CHIROPRACTIC PRACTICE MANAGER Video Visit [facility] Internal Medicine [facility] [place] [facility] [address] [facility] [address] [place] [address] Laura Pritchard NP [address] [facility] [address] [place] [address] 07/07/2025 11:00 AM CDT Office Visit [facility] Internal Medicine [facility] [place] [facility] [address] [facility] [address] [place] [address] Johnny Davis MD [address] [facility] [address] [place] [address] documented as of this encounter Visit Diagnoses Not on filedocumented in this encounter Additional Health Concerns Infection Onset Date Last Indicated Resolved Time R/O COVID-19 09/26/2019 09/26/2019 09/26/2019 2:08 PM CDT R/O COVID-19 09/26/2019 09/26/2019 09/26/2019 3:24 PM CDT R/O COVID-19 09/26/2019 09/26/2019 09/28/2019 2:36 AM CDT documented as of this encounter Care Teams Complaint Investigations Officer Relationship Specialty Start Date End Date Johnny Davis MD [address] [facility] [address] [place] [address] PCP - General Internal Medicine 12/12/12 noe 01/26/16 01/26/16 Parminder Parry 01/26/16 [facility] 01/26/16 PROVIDER PLUS 10/25/18 documented as of this encounter
--- OUTSIDE RECORDS SUMMARY | 2024-09-26 16:40 | XMS_ITS | Encounter Summary ---
Author Organization [facility] Address [address] [place] [address] Care Team Providers Care Plug Making Operator Name Role Phone Johnny Davis MD Primary Care Provider Encounter Details Date Type Department Care Team (Late st Contact Info) Description 07/13/1998 Outpatient Historical [facility] Internal [facility] [address] [facility] [address] [place] [address] Johnny Davis MD [address] [facility] [address] [place] [address] Social History Tobacco Use Types Packs/Day Years Used Date Smoking Tobacco: Never Assessed Comments Unknown Sex and Gender Information Value Date Recorded Sex Assigned at Not on file Legal Sex Female 4:28 AM HANDBAG STITCHER Gender Identity Not on file Sexual Orientation Not on file documented as of this encounter Plan of Treatment Upcoming Encounters Date Type Department Care Team (Late st Contact Info) Description 12/11/2024 10:30 AM HANDBAG STITCHER Video Visit [facility] Internal [facility] [address] [facility] [address] [place] [address] Laura Pritchard, MARYJO [address] [place] [address] 07/07/2025 11:00 AM CDT Office Visit [facility] Internal [facility] [address] [facility] [address] [place] [address] Johnny Davis MD [address] [phone] documented as of this encounter Visit Diagnoses Not on filedocumented in this encounter Additional Health Concerns Infection Onset Date Last Indicated Resolved Time R/O COVID-19 09/26/2019 09/26/2019 09/26/2019 2:08 PM CDT R/O COVID-19 09/26/2019 09/26/2019 09/26/2019 3:24 PM CDT R/O COVID-19 09/26/2019 09/26/2019 09/28/2019 2:36 AM CDT documented as of this encounter Care Teams Plug Making Operator Relationship Specialty Start Date End Date Johnny Davis MD [address] [place] [address] PCP - General Internal Medicine 12/12/12 noe 01/26/16 01/26/16 Parminderoc Parry 01/26/16 [facility] 01/26/16 PROVIDER PLUS 10/25/18 documented as of this encounter
--- OUTSIDE RECORDS SUMMARY | 2024-09-26 16:40 | XMS_ITS | Encounter Summary ---
Author Organization [facility] Address 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 [facility] [address] [place] [address] Laura Pritchard NP [address] [place] [address] 07/07/2025 11:00 AM CDT Office Visit [facility] Internal Medicine [facility] [address] [address] [place] [address] Johnny Davis MD [address] [place] [address] [address] [place] [address] documented as of this encounter Procedures Procedure Name Priority Date/Time Associated Diagnosis Comments ALDOLASE Routine 06/10/2004 2:11 PM CDT CBC WITH DIFFERENTIAL Routine 06/10/2004 2:11 PM CDT CBC WITH DIFFERENTIAL Routine 06/10/2004 2:11 PM CDT SEDIMENTATION RATE Routine 06/10/2004 2: 11 PM CDT RHEUMATOID FACTOR Routine 06/10/2004 2:1 1 PM CDT ARAMIS SCREEN W/REFLEX Routine 06/10/2004 2 :11 PM CDT CK Routine 06/10/2004 2:11 PM CDT COMPREHENSIVE METABOLIC PANEL Routine 06/10/2004 2:11 PM CDT TSH REFLEXIVE Routine 06/10/2004 2:05 PM CDT documented in this encounter Results * ALDOLASE (06/10/2004 2:11 PM CDT) ALDOLASE 3.8 0.0 - 8.1 U/L INTERFACE SYSTEM Comment: Lab test performed by: [email or web address] [address] [address] OSCAR CHONG MD 06/10/2004 2:11 PM CDT Johnny Davis MD CHEMISTRY ORDERABLES Final Result INTERFACE SYSTEM Refer to clinic/hospital department * RHEUMATOID FACTOR (06/10/2004 2:11 PM CDT) RHEUMATOID FACTOR 10 <14 IU/mL IN TERFACE SYSTEM Comment: Lab test performed by: [email or web address] [address] [address] OSCAR CHONG MD 06/10/2004 2:11 PM CDT Johnny Davis MD CHEMISTRY ORDERABLES Final Result Performing Organization Address [facility] Phone Number INTERFACE SYSTEM Refer to clinic/hospital department * ARAMIS (06/10/2004 2:11 PM CDT) ARAMIS SCREEN NEGATIVE NEGATIVE INTERFACE SYSTEM Comment: [facility]: [facility] [address] [place] [address] OSCAR CHONG MD 06/10/2004 2:11 PM CDT Johnny Davis MD CHEMISTRY ORDERABLES Final Result Performing Organization Address [facility] Phone Number INTERFACE SYSTEM Refer to clinic/hospital department * (ABNORMAL) CBC WITH DIFFERENTIAL (06/10/2004 2:11 PM CDT) NEUTROPHILS 42(L) 45 - 70 % INTERFAC E SYSTEM LYMPHOCYTES 40 16 - 45 % INTERFAC E SYSTEM MONOCYTES 9 3 - 13 % INTERFACE SYSTEM EOSINOPHILS 9(H) 0 - 7 % INTERFAC E SYSTEM BASOPHILS 1 0 - 2 % INTERFACE SYSTEM NEUTROPHIL ABSOLUTE 2.90 1.90 - 7.00 K/uL INTERFACE SYSTEM LYMPHOCYTE ABSOLUTE 2.75 0.70 - 4.50 K/uL INTERFACE SYSTEM MONOCYTE ABSOLUTE 0.65 0.10 - 1.30 K/uL INTERFACE SYSTEM EOSINOPHIL ABSOLUTE 0.59 0.00 - 0.70 K/uL INTERFACE SYSTEM BASOPHILS ABSOLUTE 0.08 0.00 - 0.20 K/uL INTERFACE SYSTEM 06/10/2004 2:11 PM CDT Johnny Davis MD HEMATOLOGY ORDERABLES Final Result Performing Organization Address [facility] Phone Number INTERFACE SYSTEM Refer to clinic/hospital department * (ABNORMAL) CBC WITH DIFFERENTIAL (06/10/2004 2:11 PM CDT) WBC 7.0 4.0 - 9.8 K/uL INTERFACE SYSTEM RBC 5.06(H) 3.90 - 4.90 M/uL INTERFACE SYSTEM HEMOGLOBIN 14.7 11.8 - 14.8 g/dL INTERFACE SYSTEM HEMATOCRIT 43.9 35.5 - 44.0 % INTERFACE SYSTEM MCV 86.8 82.0 - 99.0 fL INTERFACE SYSTEM MCH 29.1 27.2 - 32.6 pg INTERFACE SYSTEM MCHC 33.5 31.5 - 35.5 % INTERFACE SYSTEM RDW 13.9 11.5 - 14.5 % INTERFACE SYSTEM RDW-STDEV 44.1 37.1 - 48.7 fL INTERFACE SYSTEM PLATELETS 300 140 - 350 K/uL INTERFACE SYSTEM MPV 10.5 9.3 - 12.4 fL INTERFACE SYSTEM 06/10/2004 2:11 PM CDT Johnny Davis MD HEMATOLOGY ORDERABLES Final Result Performing Organization Address [facility] Co de Phone Number INTERFACE SYSTEM Refer to clinic/hospital department * SEDIMENTATION RATE (06/10/2004 2:11 PM CDT) ESR (SEDIMENTATION RATE) 10 0 - 20 mm/hr INTERFACE SYSTEM 06/10/2004 2:11 PM CDT Johnny Davis MD HEMATOLOGY ORDERABLES Final Result Performing Organization Address [facility] Co in Phone Number INTERFACE SYSTEM Refer to clinic/hospital department * CK (06/10/2004 2:11 PM CDT) CK 102 10 - 145 U/L INTERFACE SYSTEM 06/10/2004 2:11 PM CDT us Johnny Davis MD CHEMISTRY ORDERABLES Final Result Performing Organization Address [facility] Co de Phone Number INTERFACE SYSTEM Refer to clinic/hospital department * COMPREHENSIVE METABOLIC PANEL (06/10/2004 2:11 PM CDT) GLUCOSE 87 65 - 109 mg/dL INTERFACE SYSTEM CREATININE 0.8 0.4 - 1.2 mg/dL INTERFACE SYSTEM CALCIUM 9.6 8.6 - 10.2 mg/dL INTERFACE SYSTEM AST 15 12 - 32 U/L INTERFACE SYSTEM ALKALINE PHOSPHATASE 104 35 - 104 U/L INTERFACE SYSTEM BUN 16 6 - 20 mg/dL INTERFACE SYSTEM BILIRUBIN TOTAL 0.3 0.2 - 1.0 mg/dL INTERFACE SYSTEM ALBUMIN 4.6 3.4 - 4.8 g/dL INTERFACE SYSTEM TOTAL PROTEIN 7.7 6.3 - 8.6 g/dL INTERFACE SYSTEM ALT 15 0 - 31 U/L INTERFACE SYSTEM SODIUM 137 135 - 145 mmol/L INTERFACE SYSTEM POTASSIUM 3.7 3.5 - 4.9 mmol/L INTERFACE SYSTEM CHLORIDE 101 96 - 108 mmol/L INTERFACE SYSTEM CO2 27 22 - 30 mmol/L INTERFACE SYSTEM 06/10/2004 2:11 PM CDT Johnny Davis MD CHEMISTRY ORDERABLES Final Result Performing Organization Address [facility] de Phone Number INTERFACE SYSTEM Refer to clinic/hospital department * TSH REFLEXIVE (06/10/2004 2:05 PM CDT) TSH 1.40 0.27 - 4.20 uU/mL INTERFACE SYSTEM Comment:Previous specimen us ed; approved by floor. 06/10/2004 2:05 PM CDT Johnny Davis MD CHEMISTRY ORDERABLES Final Result Performing Organization Address [facility] Co de Phone Number INTERFACE SYSTEM Refer to clinic/hospital department documented in this encounter Visit Diagnoses Diagnosis Myalgia and myositis, unspecified- Primary Mylagia and myositis, unspecified documented in this encounter Additional Health Concerns Infection Onset Date Last Indicated Resolved Time R/O COVID-19 09/26/2019 09/26/2019 09/26/2019 2:08 PM CDT R/O COVID-19 09/26/2019 09/26/2019 09/26/2019 3:24 PM CDT R/O COVID-19 09/26/2019 09/26/2019 09/28/2019 2:36 AM CDT documented as of this encounter Care Teams Gizzard Peeler Relationship Specialty Start Date End Date Johnny Davis MD [address] [place], [place] [address] [place] [address] PCP - General Internal Medicine 12/12/12 noe 01/26/16 01/26/16 Parminder Parry 01/26/16 [facility] 01/26/16 PROVIDER PLUS 10/25/18 documented as of this encounter
--- OUTSIDE RECORDS SUMMARY | 2024-09-26 16:40 | XMS_ITS | Encounter Summary ---
Author Organization [facility] Address 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 Gender Identity Not on file Sexual Orientation Not on file documented as of this encounter Plan of Treatment Upcoming Encounters Date Type Department Care Team (Late st Contact Info) Description 12/11/2024 10:30 AM SOFTWARE LICENSING EXECUTIVE Video Visit [facility] Internal Medicine [facility] [address] [place] [address] Laura Pritchard NP [address] [place] [address] 07/07/2025 11:00 AM CDT Office Visit [facility] Internal Medicine [facility] [address] [place] [address] Johnny Davis MD [address] [address] [place] [address] documented as of this encounter Visit Diagnoses Diagnosis Unspecified asthma(493.90)- Primary Unspecified asthma documented in this encounter Additional Health Concerns Infection Onset Date Last Indicated Resolved Time R/O COVID-19 09/26/2019 09/26/2019 09/26/2019 2:08 PM CDT R/O COVID-19 09/26/2019 09/26/2019 09/26/2019 3:24 PM CDT R/O COVID-19 09/26/2019 09/26/2019 09/28/2019 2:36 AM CDT documented as of this encounter Care Teams Big Data Admin Relationship Specialty Start Date End Date Johnny Davis MD [address] [place] [address] PCP - General Internal Medicine 12/12/12 noe 01/26/16 01/26/16 Parminder Parry 01/26/16 [facility] 01/26/16 PROVIDER PLUS 10/25/18 documented as of this encounter
--- OUTSIDE RECORDS SUMMARY | 2024-09-26 16:40 | XMS_ITS | Encounter Summary ---
Author Organization [facility] Address [address] [place] [address] Care Team Providers Care Leach Tank Tender Name Role Phone Johnny Davis MD Primary Care Provider Encounter Details Date Type Department Care Team (Late st Contact Info) Description 04/25/2005 Outpatient Historical [facility] Supp Sv[facility] Blood Flow [address] [place] [address] Broderick Campbell MD NO ADDRESS ON FILE Social History Tobacco Use Types Packs/Day Years Used Date Smoking Tobacco: Never Assessed Comments Unknown Sex and Gender Information Value Date Recorded Sex Assigned at Not on file Legal Sex Female 4:28 AM AT HOME INDEPENDENT CALL CENTER AGENT Gender Identity Not on file Sexual Orientation Not on file documented as of this encounter Plan of Treatment Upcoming Encounters Date Type Department Care Team (Late st Contact Info) Description 12/11/2024 10:30 AM AT HOME INDEPENDENT CALL CENTER AGENT Video Visit [facility] Internal Medicine [facility] [address] [place] [address] Laura Pritchard NP [address] [facility] [address] [place] [address] 07/07/2025 11:00 AM CDT Office Visit [facility] Internal Medicine [facility] [address] [place] [address] Johnny Davis MD [address] [facility] [address] [address] documented as of this encounter Visit Diagnoses Not on filedocumented in this encounter Additional Health Concerns Infection Onset Date Last Indicated Resolved Time R/O COVID-19 09/26/2019 09/26/2019 09/26/2019 2:08 PM CDT R/O COVID-19 09/26/2019 09/26/2019 09/26/2019 3:24 PM CDT R/O COVID-19 09/26/2019 09/26/2019 09/28/2019 2:36 AM CDT documented as of this encounter Care Teams Leach Tank Tender Relationship Specialty Start Date End Date Johnny Davis MD [address] [place] [address] PCP - General Internal Medicine 12/12/12 noe 01/26/16 01/26/16 Parminder Parry 01/26/16 [facility] 01/26/16 PROVIDER PLUS 10/25/18 documented as of this encounter
--- OUTSIDE RECORDS SUMMARY | 2024-09-26 16:40 | XMS_ITS | Encounter Summary ---
Author Organization [facility] Address [address] [place] [address] Care Team Providers Care Residue Furnace Operator Name Role Phone Johnny Davis MD Primary Care Provider [phone] Encounter Details Date Type Department Care Team (Latest Contact Info) Description 03/02/2004 Outpatient Historical HIS [facility] Kevin Wallace MD [address] [place] [address] ASTHMA UNSPECIFIED (Primary Dx) Social History Tobacco Use Types Packs/Day Years Used Date Smoking Tobacco: Never Assessed Comments Unknown Sex and Gender Information Value Date Recorded Sex Assigned at Not on file Legal Sex Female 4:28 AM MARKETING ENGINEER Gender Identity Not on file Sexual Orientation Not on file documented as of this encounter Plan of Treatment Upcoming Encounters Date Type Department Care Team (Late st Contact Info) Description 12/11/2024 10:30 AM MARKETING ENGINEER Video Visit [facility] Internal Medicine [facility] [address] [facility] [address] [place] [address] Laura Pritchard NP [address] [place] [address] 07/07/2025 11:00 AM CDT Office Visit [facility] Internal Medicine [facility] [address] [facility] [facility] [address] [place] [address] Johnny Davis MD [address] [place] [address] documented as of this encounter Procedures Procedure Name Priority Date/Time Associated Diagnosis Comments CBC WITH DIFFERENTIAL Routine 03/02/2004 11:50 AM MARKETING ENGINEER CBC WITH DIFFERENTIAL Routine 03/02/2004 11:50 AM MARKETING ENGINEER C-REACTIVE PROTEIN Routine 03/02/2004 11 :50 AM MARKETING ENGINEER IGE Routine 03/02/2004 11:50 AM MARKETING ENGINEER ALLERGY PROFILE, INTERPRETATION Routine 03/02/2004 11:44 AM MARKETING ENGINEER ALLERGY PANEL (EAST REGION) Routine 03/02/2004 11:44 AM MARKETING ENGINEER documented in this encounter Results * (ABNORMAL) IGE (03/02/2004 11:50 AM MARKETING ENGINEER) IGE 533(H) <EN=676 kU/L INTERFACE SYSTEM Comment: [facility] test [facility]: [facility] [id number] [place] [address] OSCAR CHONG MD 03/02/2004 11:5 0 AM MARKETING ENGINEER Kevin Miller MD CHEMISTRY ORDERABLES Final R esult INTERFACE SYSTEM Refer to clinic/hospital department * CBC WITH DIFFERENTIAL (03/02/2004 11:50 AM MARKETING ENGINEER) NEUTROPHILS 54 45 - 70 % INTERFAC E SYSTEM LYMPHOCYTES 32 16 - 45 % INTERFAC E SYSTEM MONOCYTES 8 3 - 13 % INTERFACE SYSTEM EOSINOPHILS 6 0 - 7 % INTERFAC E SYSTEM BASOPHILS 1 0 - 2 % INTERFACE SYSTEM NEUTROPHIL ABSOLUTE 6.21 1.90 - 7.00 K/uL INTERFACE SYSTEM LYMPHOCYTE ABSOLUTE 3.63 0.70 - 4.50 K/uL INTERFACE SYSTEM MONOCYTE ABSOLUTE 0.93 0.10 - 1.30 K/uL INTERFACE SYSTEM EOSINOPHIL ABSOLUTE 0.66 0.00 - 0.70 K/uL INTERFACE SYSTEM BASOPHILS ABSOLUTE 0.06 0.00 - 0.20 K/uL INTERFACE SYSTEM 03/02/2004 11:5 0 AM MARKETING ENGINEER Result Kyle Miller MD HEMATOLOGY ORDERABLES Final Result Performing Organization Address City/[facility] [place] Phone Number INTERFACE SYSTEM Refer to clinic/hospital department * (ABNORMAL) CBC WITH DIFFERENTIAL (03/02/2004 11:50 AM MARKETING ENGINEER) WBC 11.5(H) 4.0 - 9.8 K/uL INTERFACE SYSTEM RBC 4.76 3.90 - 4.90 M/uL INTERFACE SYSTEM HEMOGLOBIN 14.1 11.8 - 14.8 g/dL INTERFACE SYSTEM HEMATOCRIT 42.2 35.5 - 44.0 % INTERFACE SYSTEM MCV 88.7 82.0 - 99.0 fL INTERFACE SYSTEM MCH 29.6 27.2 - 32.6 pg INTERFACE SYSTEM MCHC 33.4 31.5 - 35.5 % INTERFACE SYSTEM RDW 14.6(H) 11.5 - 14.5 % INTERFACE SYSTEM RDW-STDEV 47.7 37.1 - 48.7 fL INTERFACE SYSTEM PLATELETS 352(H) 140 - 350 K/uL INTERFACE SYSTEM MPV 10.1 9.3 - 12.4 fL INTERFACE SYSTEM 03/02/2004 11:5 0 AM MARKETING ENGINEER Result Kyle Miller MD HEMATOLOGY ORDERABLES Final Result Performing Organization Address [facility] Phone Number INTERFACE SYSTEM Refer to clinic/hospital department * C-REACTIVE PROTEIN (03/02/2004 11:50 AM MARKETING ENGINEER) CRP <0.5 0.0 - 0.8 mg/dL INTERFACE SYSTEM Comment:faxed 03/02/2004 11:5 0 AM MARKETING ENGINEER Result Kyle Miller MD CHEMISTRY ORDERABLES Final R esult Performing Organization Address City/[facility] [place] Phone Number INTERFACE SYSTEM Refer to clinic/hospital department * ALLERGY PROFILE, INTERPRETATION (03/02/2004 11:44 AM MARKETING ENGINEER) RAST INTERP INTERFAC E SYSTEM Comment: IMMUNOCAP (TM) ALLERGEN RESULTS MAY BE EXPRESSED IN EITHER KU/L OR A PERCENTAGE RESPONSE OF THE PATIENT SPECIMEN COMPARED TO THE 0.35 KU/L CALIBRATOR (ASM: ALTERNATE SCORING METHOD-MODIFIED ALLERGEN). THE ALTERNATE SCORING METHOD CORRELATES WITH THE SERIAL ENDPOINT TITRATION AND IS PROVIDED TO ALLOW PREPARATION OF IMMUNOTHERAPY TREATMENT DIRECTLY FROM THE BLOOD RESULTS. THE KU/L RESULT PROVIDES MORE IMPORTANT DIAGNOSTIC INFORMATION REGARDING THE PRESENCE AND QUANTITATION OF ALLERGEN SPECIFIC IGE. SPECIFIC LEVEL OF ALLERGEN IGE SPECIFIC IGE CLASS KU/L % RESPONSE ANTIBODY ----- --------- 0 <0.35 < OR = 70 ABSENT/UNDETECTABLE 1 0.35-0.70 71-110 LOW LEVEL 2 0.71-3.50 111-220 MODERATE LEVEL 3 3.51-17.5 221-600 HIGH LEVEL 4 17.6-50 601-2000 VERY HIGH LEVEL 5 [phone] VERY HIGH LEVEL 6 >100 >6000 VERY HIGH LEVEL ALLERGENS DENOTED WITH A INCLUDE RESULTS USING ONE OR MORE ANALYTE SPECIFIC REAGENTS. IN THOSE CASES, THE TEST WAS DEVELOPED AND ITS PERFORMANCE CHARACTERISTICS DETERMINED BY [facility]. IT HAS NOT BEEN CLEARED OR APPROVED BY THE [place] [employer]OD AND DRUG [employer]MIN[employer]. THE FDA HAS DETERMINED THAT SUCH CLEARANCE IS NOT NECESSARY. Lab test performed by: [email or web address] [address] OSCAR CHONG MD See Result Comment 03/02/2004 11:4 4 AM MARKETING ENGINEER us Historical Provider CHEMISTRY ORDERABLES Final R esult INTERFACE SYSTEM Refer to clinic/hospital department * (ABNORMAL) ALLERGY PANEL REGION VIII (03/02/2004 11:44 AM MARKETING ENGINEER) Pathologist [facility] A. ALTERNATA IGE 0.96(H) kU/L INT ERFACE SYSTEM A. ALTERNATA % RESP (CLASS) 175(H) % INTERFACE SYSTEM Comment: Lab test performed by: [email or web address] [address] OSCAR CHONG MD BOX-ELDER IGE <0.35 kU/L INTERF JOSSIE SYSTEM BOX-ELDER % RESP (CLASS) 81(H) % INTERFACE SYSTEM Comment: Lab test performed by: [email or web address] [address] OSCAR CHONG MD CAT DANDER IGE 1.28(H) kU/L INTER FACE SYSTEM CAT DANDER % RESP (CLASS) 214(H) % INTERFACE SYSTEM DOG DANDER IGE 30.00(H) kU/L INTER FACE SYSTEM DOG DANDER % RESP (CLASS) 2645(H) % INTERFACE SYSTEM Comment: Lab test performed by: [email or web address] [address] OSCAR CHONG MD COCKROACH IGE <0.35 kU/L INTERF JOSSIE SYSTEM COCKROACH % RESP (CLASS) 98(H) % INTERFACE SYSTEM Comment: Lab test performed by: [address] [address] OSCAR CHONG MD ORCHARD GRASS IGE 4.06(H) kU/L IN TERFACE SYSTEM ORCHARD GRASS % RESP (CLASS) 579(H) % INTERFACE SYSTEM Comment: Lab test performed by: [email or web address] [address] OSCAR CHONG MD COMMON RAGWEED IGE 4.04(H) kU/L I NTERFACE SYSTEM COMMON RAGWEED % RESP CLASS 577(H) % INTERFACE SYSTEM Comment: Lab test performed by: [email or web address] [address] OSCAR CHONG MD BIRCH IGE <0.35 kU/L INTERFACE SYSTEM BIRCH % RESP (CLASS) 96(H) % INTERFACE SYSTEM Comment: Lab test performed by: [email or web address] [address] OSCAR CHONG MD OAK IGE <0.35 kU/L INTERFACE SYSTEM OAK % RESP (CLASS) 72(H) % I NTERFACE SYSTEM ELM IGE <0.35 kU/L INTERFACE SYSTEM ELM % RESP (CLASS) 82(H) % I NTERFACE SYSTEM Comment: Lab test performed by: [email or web address] [address] OSCAR CHONG MD DERMATOPHAGOIDES FARINAE IGE 17.00(H) kU/L INTERFACE SYSTEM D. FARINAE % RESP (CLASS) 1837(H) % INTERFACE SYSTEM Comment: Lab test performed by: [email or web address] [address] OSCAR CHONG MD ISIDRA GRASS IGE 5.39(H) kU/L INTER FACE SYSTEM ISIDRA GRASS % RESP (CLASS) 743(H) % INTERFACE SYSTEM Comment: Lab test performed by: [email or web address] [address] OSCAR CHONG MD ALLERGEN RG PIERRE ELDER <0.35 kU/L INTERFACE SYSTEM ROUGH PIERRE ELDER %RESP(CLASS) 69 % INTERFACE SYSTEM Comment: Lab test performed by: [email or web address] [address] OSCAR CHONG MD IGE 517(H) <GN=105 kU/L INTERFACE SYSTEM Comment: FOR INCREASED SENSITIVITY AND CLINICAL UTILITY, TWO [THREE IN SOME PROFILES] MOLD AND DUST MITE ALLERGENS WILL BE ADDED TO THE REGIONAL ALLERGY PROFILES EFFECTIVE MARCH 15, 2004. THE ORIGINAL PROFILE OFFERING WILL BE ALTERED AT THAT TIME. THIS WILL RESULT IN AN INCREASE OF THE CPT CODES AND IN LIST [place] BASED ON THE NUMBER OF ADDITIONAL ALLERGENS. THE TEST CODE WILL REMAIN THE SAME. ALL ALLERGENS, IF DESIRED, MAY BE ORDERED SEPARATELY. SPECIFIC DETAILS CONCERNING EACH OF THE RESPIRATORY ALLERGY PROFILES CAN BE FOUND IN OUR FEBRUARY 2004 LABORATORY UPDATE PUBLICATION. Lab test performed by: [email or web address] [address] OSCAR CHONG MD 03/02/2004 11:4 4 AM MARKETING ENGINEER Kevin Miller MD CHEMISTRY ORDERABLES Final R esult INTERFACE SYSTEM Refer to clinic/hospital department documented in this encounter Visit Diagnoses Diagnosis Unspecified asthma(493.90)- Primary Unspecified asthma documented in this encounter Additional Health Concerns Infection Onset Date Last Indicated Resolved Time R/O COVID-19 09/26/2019 09/26/2019 09/26/2019 2:08 PM CDT R/O COVID-19 09/26/2019 09/26/2019 09/26/2019 3:24 PM CDT R/O COVID-19 09/26/2019 09/26/2019 09/28/2019 2:36 AM CDT documented as of this encounter Care Teams Residue Furnace Operator Relationship Specialty Start Date End Date Johnny Davis MD [address] [place] [id number] PCP - General Internal Medicine 12/12/12 noe 01/26/16 01/26/16 Parminder Parry 01/26/16 [facility] 01/26/16 PROVIDER PLUS 10/25/18 documented as of this encounter
--- OUTSIDE RECORDS SUMMARY | 2024-09-26 16:40 | XMS_ITS | Encounter Summary ---
Author Organization [facility] Address [address] [place] [address] Care Team Providers Care Safety And Health Manager Name Role Phone Johnny Davis MD Primary Care Provider Encounter Details Date Type Department Care Team (Late st Contact Info) Description 05/31/2005 Outpatient Historical [facility] Internal Medicine [facility] [address] [facility] [address] [place] [address] Johnny Davis MD [facility] [address] [place] [address] Social History Tobacco Use Types Packs/Day Years Used Date Smoking Tobacco: Never Assessed Comments Unknown Sex and Gender Information Value Date Recorded Sex Assigned at Not on file Legal Sex Female 4:28 AM CORRECTION WORKER Gender Identity Not on file Sexual Orientation Not on file documented as of this encounter Last Filed Vital Signs Vital Sign Reading Time Taken Comments Blood Pressure 140/80 05/31/2005 11:45 AM CDT Pulse 80 05/31/2005 11:45 AM CDT Temperature - - Respiratory Rate 18 05/31/2005 11:45 AM CDT Oxygen Saturation - - Inhaled Oxygen Concentration - - Weight 75.3 kg (166 lb) 05/31/2005 11:45 AM CDT Height 167.6 cm (5' 6) 05/31/2005 11:45 AM CDT Body Mass Index 26.79 05/31/2005 11:45 AM CDT documented in this encounter Plan of Treatment Upcoming Encounters Date Type Department Care Team (Late st Contact Info) Description 12/11/2024 10:30 AM CORRECTION WORKER Video Visit [facility] Internal Medicine [facility] [place] [facility] [address] [facility] [address] [place] [phone] Laura Pritchard, MARYJO [address] [facility] [address] [place] [address] 07/07/2025 11:00 AM CDT Office Visit [facility] Internal Medicine [facility] [address] [facility] [address] [place] [phone] Johnny Davis MD [address] [facility] [address] [place], [place] [phone] documented as of this encounter Visit Diagnoses Not on filedocumented in this encounter Additional Health Concerns Infection Onset Date Last Indicated Resolved Time R/O COVID-19 09/26/2019 09/26/2019 09/26/2019 2:08 PM CDT R/O COVID-19 09/26/2019 09/26/2019 09/26/2019 3:24 PM CDT R/O COVID-19 09/26/2019 09/26/2019 09/28/2019 2:36 AM CDT documented as of this encounter Care Teams Safety And Health Manager Relationship Specialty Start Date End Date Johnny Davis MD [address] [facility] [address] [place] [address] PCP - General Internal Medicine 12/12/12 sohan 01/26/16 01/26/16 Parminder Sohan 01/26/16 [facility] 01/26/16 PROVIDER PLUS 10/25/18 documented as of this encounter
--- OUTSIDE RECORDS SUMMARY | 2024-09-26 16:40 | XMS_ITS | Encounter Summary ---
Author Organization [facility] Address [address] [place] [address] Care Team Providers Care Pet Technologist Name Role Phone Johnny Davis MD Primary Care Provider Encounter Details Date Type Department Care Team (Late st Contact Info) Description 07/01/2003 Outpatient Historical [facility] Internal Medicine [facility] [address] [facility] [address] [place] [address] Johnny Davis MD [address] [address] [place] [address] Social History Tobacco Use Types Packs/Day Years Used Date Smoking Tobacco: Never Assessed Comments Unknown Sex and Gender Information Value Date Recorded Sex Assigned at Not on file Legal Sex Female 4:28 AM SPECIAL EDUCATION PARAEDUCATOR Gender Identity Not on file Sexual Orientation Not on file documented as of this encounter Plan of Treatment Upcoming Encounters Date Type Department Care Team (Late st Contact Info) Description 12/11/2024 10:30 AM SPECIAL EDUCATION PARAEDUCATOR Video Visit [facility] Internal Medicine [facility] [address] [facility] [address] [place] [address] Laura Pritchard, MARYJO [address] [place] [address] 07/07/2025 11:00 AM CDT Office Visit [facility] Internal Medicine [facility] [address] [facility] [address] [place] [address] Johnny Davis MD [address] [phone] documented as of this encounter Visit Diagnoses Not on filedocumented in this encounter Additional Health Concerns Infection Onset Date Last Indicated Resolved Time R/O COVID-19 09/26/2019 09/26/2019 09/26/2019 2:08 PM CDT R/O COVID-19 09/26/2019 09/26/2019 09/26/2019 3:24 PM CDT R/O COVID-19 09/26/2019 09/26/2019 09/28/2019 2:36 AM CDT documented as of this encounter Care Teams Pet Technologist Relationship Specialty Start Date End Date Johnny Davis MD [address] [place] [id number] PCP - General Internal Medicine 12/12/12 noe 01/26/16 01/26/16 Parminderoc Parry 01/26/16 [facility] 01/26/16 PROVIDER PLUS 10/25/18 documented as of this encounter
--- OUTSIDE RECORDS SUMMARY | 2024-09-26 16:40 | XMS_ITS | Encounter Summary ---
Author Organization [facility] Address [address] [place] [address] Care Team Providers Care Residential Field Manager Name Role Phone Johnny Davis MD Primary Care Provider Encounter Details Date Type Department Care Team (Latest Contact Info) Description 04/24/2005 Inpatient Historical [facility] Sung Go MD [address] [facility] [address] [address] Johnny Davis MD [address] [facility] [address] [address] Other Convulsions (CMS/HCC) (Primary Dx) Social History Tobacco Use Types Packs/Day Years Used Date Smoking Tobacco: Never Assessed Comments Unknown Sex and Gender Information Value Date Recorded Sex Assigned at Not on file Legal Sex Female 4:28 AM LACING OPERATOR Gender Identity Not on file Sexual Orientation Not on file documented as of this encounter Plan of Treatment Upcoming Encounters Date Type Department Care Team (Late st Contact Info) Description 12/11/2024 10:30 AM LACING OPERATOR Video Visit [facility] Internal Medicine [facility] [address] [address] Laura Pritchard, MARYJO [address] [facility] [address] [place] [address] 07/07/2025 11:00 AM CDT Office Visit [facility] Internal Medicine [facility] [address] [facility] [address] [address] Johnny Davis MD [address] [facility] [address] [address] documented as of this encounter Procedures Procedure Name Priority Date/Time Associated Diagnosis Comments POC GLUCOSE Routine 04/25/2005 12:33 PM LACING OPERATOR POC GLUCOSE Routine 04/25/2005 8:42 AM LACING OPERATOR POC GLUCOSE Routine 04/25/2005 5:15 AM LACING OPERATOR CBC WITH DIFFERENTIAL Routine 04/25/2005 4:20 AM LACING OPERATOR CBC WITH DIFFERENTIAL Routine 04/25/2005 4:20 AM LACING OPERATOR PHOSPHORUS Routine 04/25/2005 4:20 AM LACING OPERATOR MAGNESIUM LEVEL Routine 04/25/2005 4:20 AM LACING OPERATOR BASIC METABOLIC PANEL Routine 04/25/2005 4:20 AM LACING OPERATOR POC GLUCOSE Routine 04/25/2005 12:16 AM LACING OPERATOR POC GLUCOSE Routine 04/24/2005 8:50 PM LACING OPERATOR POC GLUCOSE Routine 04/24/2005 5:35 PM LACING OPERATOR POC GLUCOSE Routine 04/24/2005 2:46 PM LACING OPERATOR PHENYTOIN LEVEL, TOTAL Routine 04/24/2005 2:36 PM LACING OPERATOR PT AND APTT Routine 04/24/2005 4:50 AM LACING OPERATOR CBC WITH DIFFERENTIAL Routine 04/24/2005 4:50 AM LACING OPERATOR CBC WITH DIFFERENTIAL Routine 04/24/2005 4:50 AM LACING OPERATOR TSH Routine 04/24/2005 4:50 AM LACING OPERATOR PHOSPHORUS Routine 04/24/2005 4:50 AM LACING OPERATOR MAGNESIUM LEVEL Routine 04/24/2005 4:50 AM LACING OPERATOR HEPATIC FUNCTION PANEL Routine 04/24/2005 4:50 AM LACING OPERATOR BASIC METABOLIC PANEL Routine 04/24/2005 4:50 AM LACING OPERATOR documented in this encounter Results * POC GLUCOSE (04/25/2005 12:33 PM LACING OPERATOR) GLUCOSE POC 96 65 - 109 mg/dL INTERFACE SYSTEM 04/25/2005 12:3 3 PM LACING OPERATOR us Johnny Davis MD POINT OF CARE TESTING Final Result Performing Organization Address [facility] Phone Number INTERFACE SYSTEM Refer to clinic/hospital department * POC GLUCOSE (04/25/2005 8:42 AM LACING OPERATOR) GLUCOSE POC 93 65 - 109 mg/dL INTERFACE SYSTEM 04/25/2005 8:42 AM LACING OPERATOR us Johnny Davis MD POINT OF CARE TESTING Final Result Performing Organization Address [facility] Phone Number INTERFACE SYSTEM Refer to clinic/hospital department * POC GLUCOSE (04/25/2005 5:15 AM LACING OPERATOR) GLUCOSE POC 84 65 - 109 mg/dL INTERFACE SYSTEM 04/25/2005 5:15 AM LACING OPERATOR us Johnny Davis MD POINT OF CARE TESTING Final Result Performing Organization Address [facility] de Phone Number INTERFACE SYSTEM Refer to clinic/hospital department * CBC WITH DIFFERENTIAL (04/25/2005 4:20 AM LACING OPERATOR) NEUTROPHILS 59 45 - 70 % INTERFAC E SYSTEM LYMPHOCYTES 33 16 - 45 % INTERFAC E SYSTEM MONOCYTES 7 3 - 13 % INTERFACE SYSTEM EOSINOPHILS 1 0 - 7 % INTERFAC E SYSTEM BASOPHILS 0 0 - 2 % INTERFACE SYSTEM NEUTROPHIL ABSOLUTE 6.36 1.90 - 7.00 K/uL INTERFACE SYSTEM LYMPHOCYTE ABSOLUTE 3.52 0.70 - 4.50 K/uL INTERFACE SYSTEM MONOCYTE ABSOLUTE 0.80 0.10 - 1.30 K/uL INTERFACE SYSTEM EOSINOPHIL ABSOLUTE 0.10 0.00 - 0.70 K/uL INTERFACE SYSTEM BASOPHILS ABSOLUTE 0.03 0.00 - 0.20 K/uL INTERFACE SYSTEM 04/25/2005 4:20 AM LACING OPERATOR Charlie Rodriguez MD HEMATOLOGY ORDERABLES Final Result Performing Organization Address [facility] Co de Phone Number INTERFACE SYSTEM Refer to clinic/hospital department * (ABNORMAL) CBC WITH DIFFERENTIAL (04/25/2005 4:20 AM LACING OPERATOR) WBC 10.8(H) 4.0 - 9.8 K/uL INTERFACE SYSTEM RBC 4.68 3.90 - 4.90 M/uL INTERFACE SYSTEM HEMOGLOBIN 13.6 11.8 - 14.8 g/dL INTERFACE SYSTEM HEMATOCRIT 40.5 35.5 - 44.0 % INTERFACE SYSTEM MCV 86.5 82.0 - 99.0 fL INTERFACE SYSTEM MCH 29.1 27.2 - 32.6 pg INTERFACE SYSTEM MCHC 33.6 31.5 - 35.5 % INTERFACE SYSTEM RDW 14.2 11.5 - 14.5 % INTERFACE SYSTEM RDW-STDEV 45.1 37.1 - 48.7 fL INTERFACE SYSTEM PLATELETS 258 140 - 350 K/uL INTERFACE SYSTEM MPV 10.2 9.3 - 12.4 fL INTERFACE SYSTEM 04/25/2005 4:20 AM LACING OPERATOR Charlie Rodriguez MD HEMATOLOGY ORDERABLES Final Result Performing Organization Address [facility] Co de Phone Number INTERFACE SYSTEM Refer to clinic/hospital department * PHOSPHORUS (04/25/2005 4:20 AM LACING OPERATOR) PHOSPHORUS 3.3 2.5 - 4.5 mg/dL INTERFACE SYSTEM 04/25/2005 4:20 AM LACING OPERATOR Charlie Rodriguez MD CHEMISTRY ORDERABLES Final R esult Performing Organization Address [facility] de Phone Number INTERFACE SYSTEM Refer to clinic/hospital department * MAGNESIUM LEVEL (04/25/2005 4:20 AM LACING OPERATOR) MAGNESIUM 1.8 1.5 - 2.5 mg/dL INTERFACE SYSTEM 04/25/2005 4:20 AM LACING OPERATOR Charlie Rodriguez MD CHEMISTRY ORDERABLES Final R esult Performing Organization Address [facility] de Phone Number INTERFACE SYSTEM Refer to clinic/hospital department * (ABNORMAL) BASIC METABOLIC PANEL (04/25/2005 4:20 AM LACING OPERATOR) GLUCOSE 84 65 - 109 mg/dL INTERFACE SYSTEM CREATININE 0.7 0.4 - 1.2 mg/dL INTERFACE SYSTEM CALCIUM 8.5(L) 8.6 - 10.2 mg/dL INTERFACE SYSTEM BUN 5(L) 6 - 20 mg/dL INTERFACE SYSTEM SODIUM 141 135 - 145 mmol/L INTERFACE SYSTEM POTASSIUM 3.9 3.5 - 4.9 mmol/L INTERFACE SYSTEM CHLORIDE 107 96 - 108 mmol/L INTERFACE SYSTEM CO2 24 22 - 30 mmol/L INTERFACE SYSTEM 04/25/2005 4:20 AM LACING OPERATOR Charlie Rodriguez MD CHEMISTRY ORDERABLES Final R esult Performing Organization Address [facility] Phone Number INTERFACE SYSTEM Refer to clinic/hospital department * (ABNORMAL) POC GLUCOSE (04/25/2005 12:16 AM LACING OPERATOR) GLUCOSE POC 115(H) 65 - 109 mg/dL INTERFACE SYSTEM 04/25/2005 12:1 6 AM LACING OPERATOR Johnny Davis MD POINT OF CARE TESTING Final Result Performing Organization Address [facility] de Phone Number INTERFACE SYSTEM Refer to clinic/hospital department * (ABNORMAL) POC GLUCOSE (04/24/2005 8:50 PM LACING OPERATOR) GLUCOSE POC 122(H) 65 - 109 mg/dL INTERFACE SYSTEM 04/24/2005 8:50 PM LACING OPERATOR Johnny Davis MD POINT OF CARE TESTING Final Result Performing Organization Address [facility] Phone Number INTERFACE SYSTEM Refer to clinic/hospital department * POC GLUCOSE (04/24/2005 5:35 PM LACING OPERATOR) GLUCOSE POC 98 65 - 109 mg/dL INTERFACE SYSTEM 04/24/2005 5:35 PM LACING OPERATOR Johnny Davis MD POINT OF CARE TESTING Final Result Performing Organization Address [facility] Phone Number INTERFACE SYSTEM Refer to clinic/hospital department * (ABNORMAL) POC GLUCOSE (04/24/2005 2:46 PM LACING OPERATOR) GLUCOSE POC 149(H) 65 - 109 mg/dL INTERFACE SYSTEM 04/24/2005 2:46 PM LACING OPERATOR Johnny Davis MD POINT OF CARE TESTING Final Result Performing Organization Address [facility] Phone Number INTERFACE SYSTEM Refer to clinic/hospital department * PHENYTOIN LEVEL, TOTAL (04/24/2005 2:36 PM LACING OPERATOR) PHENYTOIN TOTAL 12.4 10.0 - 20.0 ug/mL INTERFACE SYSTEM Comment: Phenytoin Toxic Level >= 30 ug/mL Phenytoin Severely Toxic Level >= 40 ug/mL 04/24/2005 2:36 PM LACING OPERATOR Charlie Rodriguez MD CHEMISTRY ORDERABLES Final R esult Performing Organization Address [facility] Phone Number INTERFACE SYSTEM Refer to clinic/hospital department * TSH (04/24/2005 4:50 AM LACING OPERATOR) TSH 1.73 0.27 - 4.20 uU/mL INTERFACE SYSTEM 04/24/2005 4:50 AM LACING OPERATOR Ayo Doss MD CHEMISTRY ORDERABLES Final Result Performing Organization Address [facility] de Phone Number INTERFACE SYSTEM Refer to clinic/hospital department * (ABNORMAL) CBC WITH DIFFERENTIAL (04/24/2005 4:50 AM LACING OPERATOR) NEUTROPHILS 51 45 - 70 % INTERFAC E SYSTEM LYMPHOCYTES 38 16 - 45 % INTERFAC E SYSTEM MONOCYTES 9 3 - 13 % INTERFACE SYSTEM EOSINOPHILS 2 0 - 7 % INTERFAC E SYSTEM BASOPHILS 0 0 - 2 % INTERFACE SYSTEM NEUTROPHIL ABSOLUTE 7.09(H) 1.90 - 7.00 K/uL INTERFACE SYSTEM LYMPHOCYTE ABSOLUTE 5.28(H) 0.70 - 4.50 K/uL INTERFACE SYSTEM MONOCYTE ABSOLUTE 1.31(H) 0.10 - 1.30 K/uL INTERFACE SYSTEM EOSINOPHIL ABSOLUTE 0.30 0.00 - 0.70 K/uL INTERFACE SYSTEM BASOPHILS ABSOLUTE 0.05 0.00 - 0.20 K/uL INTERFACE SYSTEM 04/24/2005 4:50 AM LACING OPERATOR Ayo Doss MD HEMATOLOGY ORDERABLES Final Result Performing Organization Address [facility] de Phone Number INTERFACE SYSTEM Refer to clinic/hospital department * (ABNORMAL) CBC WITH DIFFERENTIAL (04/24/2005 4:50 AM LACING OPERATOR) WBC 14.0(H) 4.0 - 9.8 K/uL INTERFACE SYSTEM RBC 4.66 3.90 - 4.90 M/uL INTERFACE SYSTEM HEMOGLOBIN 13.4 11.8 - 14.8 g/dL INTERFACE SYSTEM HEMATOCRIT 40.0 35.5 - 44.0 % INTERFACE SYSTEM MCV 85.8 82.0 - 99.0 fL INTERFACE SYSTEM MCH 28.8 27.2 - 32.6 pg INTERFACE SYSTEM MCHC 33.5 31.5 - 35.5 % INTERFACE SYSTEM RDW 14.4 11.5 - 14.5 % INTERFACE SYSTEM RDW-STDEV 45.1 37.1 - 48.7 fL INTERFACE SYSTEM PLATELETS 290 140 - 350 K/uL INTERFACE SYSTEM MPV 10.3 9.3 - 12.4 fL INTERFACE SYSTEM 04/24/2005 4:50 AM LACING OPERATOR us Ayo Doss MD HEMATOLOGY ORDERABLES Final Result Performing Organization Address [facility] Phone Number INTERFACE SYSTEM Refer to clinic/hospital department * (ABNORMAL) HEPATIC FUNCTION PANEL (04/24/2005 4:50 AM LACING OPERATOR) AST 12 12 - 32 U/L INTERFACE SYSTEM ALKALINE PHOSPHATASE 65 35 - 104 U/L INTERFACE SYSTEM ALT 11 0 - 31 U/L INTERFACE SYSTEM BILIRUBIN TOTAL 0.3 0.2 - 1.0 mg/dL INTERFACE SYSTEM ALBUMIN 3.7 3.4 - 4.8 g/dL INTERFACE SYSTEM TOTAL PROTEIN 6.2(L) 6.3 - 8.6 g/dL INTERFACE SYSTEM BILIRUBIN DIRECT 0.1 0.0 - 0.3 mg/dL INTERFACE SYSTEM 04/24/2005 4:50 AM LACING OPERATOR us Ayo Doss MD CHEMISTRY ORDERABLES Final Result Performing Organization Address [facility] Phone Number INTERFACE SYSTEM Refer to clinic/hospital department * PT AND APTT (04/24/2005 4:50 AM LACING OPERATOR) PROTIME 14.2 12.7 - 15.1 Seconds INTERFACE SYSTEM INR 1.0 0.9 - 1.1 INTERFACE SYSTEM Comment: INR Therapeutic Range: Adult: 2.0 - 3.0 for pulmonary embolism or prophylaxis against venous thrombosis or systemic embolization. 2.0 - 3.0 for patients with tissue heart valves. 2.5 - 3.5 for patients with mechanical heart valves or post PR. Pediatric (12 years and under): 1.5 - 3.0 Although the target range in children is not well established , INR values of 1.5 - 3.0 are recommended for most patients. Higher values have been used in children with prosthetic cardiac valves and hereditary clotting disorders. (<3 days) therapeutic ranges have not been established. PTT 28.4 24.4 - 36.4 Seconds INTERFACE SYSTEM Comment: PTT Therapeutic Range: Heparin Level PTT (seconds) <0.10 units/mL <53 0.10 - 0.30 units/mL 53 - 67 0.30 - 0.70 units/mL* 67 - 95* 0.70 - 1.00 units/mL 95 - 116 *corresponds to therapeutic range for unfractionated heparin 04/24/2005 4:50 AM LACING OPERATOR us Ayo Doss MD HEMATOLOGY ORDERABLES Final Result Performing Organization Address [facility] Phone Number INTERFACE SYSTEM Refer to clinic/hospital department * MAGNESIUM LEVEL (04/24/2005 4:50 AM LACING OPERATOR) MAGNESIUM 1.8 1.5 - 2.5 mg/dL INTERFACE SYSTEM 04/24/2005 4:50 AM LACING OPERATOR us Ayo Doss MD CHEMISTRY ORDERABLES Final Result Performing Organization Address [facility] Phone Number INTERFACE SYSTEM Refer to clinic/hospital department * PHOSPHORUS (04/24/2005 4:50 AM LACING OPERATOR) PHOSPHORUS 2.7 2.5 - 4.5 mg/dL INTERFACE SYSTEM 04/24/2005 4:50 AM LACING OPERATOR us Ayo Doss MD CHEMISTRY ORDERABLES Final Result Performing Organization Address [facility] Phone Number INTERFACE SYSTEM Refer to clinic/hospital department * (ABNORMAL) BASIC METABOLIC PANEL (04/24/2005 4:50 AM LACING OPERATOR) GLUCOSE 90 65 - 109 mg/dL INTERFACE SYSTEM CREATININE 0.7 0.4 - 1.2 mg/dL INTERFACE SYSTEM CALCIUM 8.6 8.6 - 10.2 mg/dL INTERFACE SYSTEM BUN 7 6 - 20 mg/dL INTERFACE SYSTEM SODIUM 147(H) 135 - 145 mmol/L INTERFACE SYSTEM POTASSIUM 3.3(L) 3.5 - 4.9 mmol/L INTERFACE SYSTEM CHLORIDE 115(H) 96 - 108 mmol/L INTERFACE SYSTEM CO2 23 22 - 30 mmol/L INTERFACE SYSTEM 04/24/2005 4:50 AM LACING OPERATOR us Ayo Doss MD CHEMISTRY ORDERABLES Final Result INTERFACE SYSTEM Refer to clinic/hospital department documented in this encounter Visit Diagnoses Diagnosis Other convulsions- Primary documented in this encounter Additional Health Concerns Infection Onset Date Last Indicated Resolved Time R/O COVID-19 09/26/2019 09/26/2019 09/26/2019 2:08 PM CDT R/O COVID-19 09/26/2019 09/26/2019 09/26/2019 3:24 PM CDT R/O COVID-19 09/26/2019 09/26/2019 09/28/2019 2:36 AM CDT documented as of this encounter Care Teams Residential Field Manager Relationship Specialty Start Date End Date Johnny Davis MD [address] [place] [phone] PCP - General Internal Medicine 12/12/12 noe 01/26/16 01/26/16 Parminder Parry 01/26/16 [facility] 01/26/16 PROVIDER PLUS 10/25/18 documented as of this encounter
--- OUTSIDE RECORDS SUMMARY | 2024-09-26 16:40 | XMS_ITS | Encounter Summary ---
Author Organization [facility] Address [address] [place] [address] Care Team Providers Care Polarity Tester Name Role Phone Johnny Davis MD Primary Care Provider Encounter Details Date Type Department Care Team (Late st Contact Info) Description 03/23/2006 Outpatient Historical [facility] Internal Medicine [facility] [address] [place] [address] Johnny Davis MD [address] [facility] [address] [place] [address] Social History Tobacco Use Types Packs/Day Years Used Date Smoking Tobacco: Never Assessed Comments Unknown Sex and Gender Information Value Date Recorded Sex Assigned at Not on file Legal Sex Female 4:28 AM MODERN LANGUAGES PROFESSOR Gender Identity Not on file Sexual Orientation Not on file documented as of this encounter Plan of Treatment Upcoming Encounters Date Type Department Care Team (Late st Contact Info) Description 12/11/2024 10:30 AM MODERN LANGUAGES PROFESSOR Video Visit [facility] Internal Medicine [facility] [address] [place] [address] Laura Pritchadr, MARYJO [address] [place] [address] 07/07/2025 11:00 AM CDT Office Visit [facility] Internal Medicine [facility] [address] [place] [address] Johnny Davis MD [address] [phone] documented as of this encounter Visit Diagnoses Not on filedocumented in this encounter Additional Health Concerns Infection Onset Date Last Indicated Resolved Time R/O COVID-19 09/26/2019 09/26/2019 09/26/2019 2:08 PM CDT R/O COVID-19 09/26/2019 09/26/2019 09/26/2019 3:24 PM CDT R/O COVID-19 09/26/2019 09/26/2019 09/28/2019 2:36 AM CDT documented as of this encounter Care Teams Polarity Tester Relationship Specialty Start Date End Date Johnny Davis MD [address] [place] [phone] PCP - General Internal Medicine 12/12/12 noe 01/26/16 01/26/16 Parminderoc Parry 01/26/16 [facility] 01/26/16 PROVIDER PLUS 10/25/18 documented as of this encounter
--- OUTSIDE RECORDS SUMMARY | 2024-09-26 16:40 | XMS_ITS | Encounter Summary ---
Author Organization [facility] Address [address] [place] [address] Care Team Providers Care Car Supplier Name Role Phone Johnny Davis MD Primary Care Provider Encounter Details Date Type Department Care Team (Latest Contact Info) Description 10/29/2002 Outpatient Historical [facility] Johnny Cullen MD [address] [place], [place] [address] [place] [address] DIARRHEA NOS (Primary Dx) Social History Tobacco Use Types Packs/Day Years Used Date Smoking Tobacco: Never Assessed Comments Unknown Sex and Gender Information Value Date Recorded Sex Assigned at Not on file Legal Sex Female 4:28 AM LONGITUDINAL FLOAT OPERATOR Gender Identity Not on file Sexual Orientation Not on file documented as of this encounter Plan of Treatment Upcoming Encounters Date Type Department Care Team (Late st Contact Info) Description 12/11/2024 10:30 AM LONGITUDINAL FLOAT OPERATOR Video Visit [facility] Internal Medicine [facility] [address] [facility] [address] [place] [address] Laura Pritchard NP [address] [place] [address] 07/07/2025 11:00 AM CDT Office Visit [facility] Internal Medicine [facility] [address] [facility] [address] [place] [address] Johnny Davis MD [address] [place] [address] [address] [address] documented as of this encounter Visit Diagnoses Diagnosis Diarrhea- Primary documented in this encounter Additional Health Concerns Infection Onset Date Last Indicated Resolved Time R/O COVID-19 09/26/2019 09/26/2019 09/26/2019 2:08 PM CDT R/O COVID-19 09/26/2019 09/26/2019 09/26/2019 3:24 PM CDT R/O COVID-19 09/26/2019 09/26/2019 09/28/2019 2:36 AM CDT documented as of this encounter Care Teams Car Supplier Relationship Specialty Start Date End Date Johnny Davis MD [address] [place] [address] [address] [address] PCP - General Internal Medicine 12/12/12 noe 01/26/16 01/26/16 Parminder Parry 01/26/16 [facility] 01/26/16 PROVIDER PLUS 10/25/18 documented as of this encounter
--- OUTSIDE RECORDS SUMMARY | 2024-09-26 16:40 | XMS_ITS | Encounter Summary ---
Author Organization [facility] Address [address] [place] [address] Care Team Providers Care Junior Architect Name Role Phone Johnny Davis MD Primary Care Provider Encounter Details Date Type Department Care Team (Late st Contact Info) Description 10/29/2002 Outpatient Historical [facility] Internal Medicine [facility] [address] [facility] [address] [place] [address] Johnny Davis MD [address] [facility] [address] [place] [address] Social History Tobacco Use Types Packs/Day Years Used Date Smoking Tobacco: Never Assessed Comments Unknown Sex and Gender Information Value Date Recorded Sex Assigned at Not on file Legal Sex Female 4:28 AM GRAPHIC ARTS INSTRUCTOR Gender Identity Not on file Sexual Orientation Not on file documented as of this encounter Plan of Treatment Upcoming Encounters Date Type Department Care Team (Late st Contact Info) Description 12/11/2024 10:30 AM GRAPHIC ARTS INSTRUCTOR Video Visit [facility] Internal Medicine [facility] [address] [facility] [address] [place] [address] Laura Pritchard, MARYJO [address] [place] [address] 07/07/2025 11:00 AM CDT Office Visit [facility] Internal Medicine [facility] [address] [facility] [address] [place] [address] Johnny Davis MD [address] [id number] documented as of this encounter Visit Diagnoses Not on filedocumented in this encounter Additional Health Concerns Infection Onset Date Last Indicated Resolved Time R/O COVID-19 09/26/2019 09/26/2019 09/26/2019 2:08 PM CDT R/O COVID-19 09/26/2019 09/26/2019 09/26/2019 3:24 PM CDT R/O COVID-19 09/26/2019 09/26/2019 09/28/2019 2:36 AM CDT documented as of this encounter Care Teams Junior Architect Relationship Specialty Start Date End Date Johnny Davis MD [address] [place] [address] PCP - General Internal Medicine 12/12/12 noe 01/26/16 01/26/16 Parminderoc Parry 01/26/16 [facility] 01/26/16 PROVIDER PLUS 10/25/18 documented as of this encounter
--- OUTSIDE RECORDS SUMMARY | 2024-09-26 16:40 | XMS_ITS | Encounter Summary ---
Author Organization [facility] Address [address] [place] [address] Care Team Providers Care Underwriting Account Representative Name Role Phone Johnny Davis MD Primary Care Provider Encounter Details Date Type Department Care Team (Late st Contact Info) Description 05/07/[address] [facility] [place] [facility] [address] [place] [address] Benjamin Hirsch MD Social History Tobacco Use Types Packs/Day Years Used Date Smoking Tobacco: Never Assessed Comments Unknown Sex and Gender Information Value Date Recorded Sex Assigned at Not on file Legal Sex Female 4:28 AM PARTS COUNTER ASSOCIATE Gender Identity Not on file Sexual Orientation Not on file documented as of this encounter Plan of Treatment Upcoming Encounters Date Type Department Care Team (Late st Contact Info) Description 12/11/2024 10:30 AM PARTS COUNTER ASSOCIATE Video Visit [facility] Internal Medicine [facility] [address] [facility] [address] [place] [address] Laura Pritchard NP [address] [address] [place] [address] 07/07/2025 11:00 AM CDT Office Visit [facility] Internal Medicine [facility] 189 [address] [facility] [address] [place] [address] Johnny Davis MD [address] [facility] [address] [place] [address] documented as of this encounter Visit Diagnoses Not on filedocumented in this encounter Additional Health Concerns Infection Onset Date Last Indicated Resolved Time R/O COVID-19 09/26/2019 09/26/2019 09/26/2019 2:08 PM CDT R/O COVID-19 09/26/2019 09/26/2019 09/26/2019 3:24 PM CDT R/O COVID-19 09/26/2019 09/26/2019 09/28/2019 2:36 AM CDT documented as of this encounter Care Teams Underwriting Account Representative Relationship Specialty Start Date End Date Johnny Davis MD [address] [place] [address] PCP - General Internal Medicine 12/12/12 noe 01/26/16 01/26/16 Parminder Parry 01/26/16 [facility] 01/26/16 PROVIDER PLUS 10/25/18 documented as of this encounter
--- OUTSIDE RECORDS SUMMARY | 2024-09-26 16:40 | XMS_ITS | Encounter Summary ---
Author Organization [facility] Address [address] [place] [address] Care Team Providers Care Picker Operator Name Role Phone Johnny Davis MD Primary Care Provider Encounter Details Date Type Department Care Team (Late st Contact Info) Description 03/28/[address] [facility] Internal Medicine [facility] [place] [facility] [address] [facility] [address] [place] [address] Johnny Davis MD [address] [facility] [address] [place] [address] Social History Tobacco Use Types Packs/Day Years Used Date Smoking Tobacco: Never Assessed Comments Unknown Sex and Gender Information Value Date Recorded Sex Assigned at Not on file Legal Sex Female 4:28 AM COAL CONVEYOR OPERATOR Gender Identity Not on file Sexual Orientation Not on file documented as of this encounter Progress Notes * Johnny Davis MD - 06/29/2007 7:53 PM CDT TIME:09:29 am PATIENT`S HOME PHONE: PATIENT`S WORK PHONE: PATIENT`S INSURANCE: [employer] PPO WHO TOOK THE CALL: Lia Husain R GENERAL INFORMATION PATIENT STATUS: Established Patient. LAST VISIT: 11.07.05 ALTERNATIVE PHONE NUMBER: [phone] WHO CALLED: Patient called. CURRENT ALLERGY LIST: [facility] NUMBER: [phone] PROBLEMS: pt was in [facility] hosp last week for pericarditis , still having the cp , taking naproxen ,the pain is about a 5/6, it is constant pain , some sob , worse with activity , see you or shoe polisher ? Saw one in the hosp , but did not like him SECTION 1: DOCTOR`S RESPONSE: alli 03/28/06 at 10:[address] Morrison, [facility] MEDICATIONS: Call in to Pharmacy VICODIN ORAL TABLET 5-500 MG, 1 Three Times A Day, As Needed, 60 Dispensed, 5 Fills, 90 Duration/Days Supply, status: CONTINUED, 03/28/2006. FINAL ACTION: penniejr 03/28/06 at 11:50 am Spoke with patient 03/28/06 at 11:50 am. / alia Called pharmacy at 03/28/06 at 11:50 am. / alia Electronically Signed by: Lia Husain on Tuesday, March 28, 2006 documented in this encounter Plan of Treatment Upcoming Encounters Date Type Department Care Team (Late st Contact Info) Description 12/11/2024 10:30 AM COAL CONVEYOR OPERATOR Video Visit [facility] Internal Medicine [facility] [address] [facility] [address] [place] [address] Laura Pritchard NP [address] [address] 07/07/2025 11:00 AM CDT Office Visit [facility] Internal Medicine [facility] [address] [facility] [address] [place] [address] Johnny Davis MD [address] [address] documented as of this encounter Visit Diagnoses Not on filedocumented in this encounter Additional Health Concerns Infection Onset Date Last Indicated Resolved Time R/O COVID-19 09/26/2019 09/26/2019 09/26/2019 2:08 PM CDT R/O COVID-19 09/26/2019 09/26/2019 09/26/2019 3:24 PM CDT R/O COVID-19 09/26/2019 09/26/2019 09/28/2019 2:36 AM CDT documented as of this encounter Care Teams Picker Operator Relationship Specialty Start Date End Date Johnny Davis MD [address] [place] [address] PCP - General Internal Medicine 12/12/12 noe 01/26/16 01/26/16 Parminder Parry 01/26/16 [facility] 01/26/16 PROVIDER PLUS 10/25/18 documented as of this encounter
--- OUTSIDE RECORDS SUMMARY | 2024-09-26 16:40 | XMS_ITS | Encounter Summary ---
Author Organization [facility] [place] Address [address] [place] [address] Care Team Providers Care Physical Plant Manager Name Role Phone Johnny Davis MD Primary Care Provider Encounter Details Date Type Department Care Team (Late st Contact Info) Description 01/08/2001 Outpatient Historical [facility] Internal Medicine [facility] [address] [facility] [address] [place] [address] Johnny Davis MD [address] [facility] [address] [place] [address] Social History Tobacco Use Types Packs/Day Years Used Date Smoking Tobacco: Never Assessed Comments Unknown Sex and Gender Information Value Date Recorded Sex Assigned at Not on file Legal Sex Female 4:28 AM WARDROBE STYLIST Gender Identity Not on file Sexual Orientation Not on file documented as of this encounter Plan of Treatment Upcoming Encounters Date Type Department Care Team (Late st Contact Info) Description 12/11/2024 10:30 AM WARDROBE STYLIST Video Visit [facility] Internal Medicine [facility] [address] [facility] [address] [place] [address] Laura Pritchard, MARYJO [address] [place] [address] 07/07/2025 11:00 AM CDT Office Visit [facility] Internal Medicine [facility] [address] [facility] [address] [place] [address] Johnny Davis MD [address] [id number] documented as of this encounter Visit Diagnoses Not on filedocumented in this encounter Additional Health Concerns Infection Onset Date Last Indicated Resolved Time R/O COVID-19 09/26/2019 09/26/2019 09/26/2019 2:08 PM CDT R/O COVID-19 09/26/2019 09/26/2019 09/26/2019 3:24 PM CDT R/O COVID-19 09/26/2019 09/26/2019 09/28/2019 2:36 AM CDT documented as of this encounter Care Teams Physical Plant Manager Relationship Specialty Start Date End Date Johnny Davis MD [address] [place] [address] PCP - General Internal Medicine 12/12/12 noe 01/26/16 01/26/16 Parminderoc Parry 01/26/16 [facility] 01/26/16 PROVIDER PLUS 10/25/18 documented as of this encounter
--- OUTSIDE RECORDS SUMMARY | 2024-09-26 16:40 | XMS_ITS | Encounter Summary ---
Author Organization [facility] Address [address] [place] [address] Care Team Providers Care Testing Shaking Shipping Name Role Phone Johnny Davis MD Primary Care Provider [phone] Encounter Details Date Type Department Care Team (Late st Contact Info) Description 05/30/2006 Orders Only [facility] Internal Medicine Medical [facility] [address] [facility] [address] [place] [address] Johnny Davis MD [address] [facility] [address] [place], [place] [id number] Social History Tobacco Use Types Packs/Day Years Used Date Smoking Tobacco: Never Assessed Comments Unknown Sex and Gender Information Value Date Recorded Sex Assigned at Not on file Legal Sex Female 4:28 AM PROCESS ENGINEERING MANAGER Gender Identity Not on file Sexual Orientation Not on file documented as of this encounter Progress Notes * Johnny Davis MD - 06/28/2007 5:47 PM CDT TIME:01:16 pm PATIENT`S HOME PHONE: PATIENT`S WORK PHONE: PATIENT`S INSURANCE: [employer] PPO WHO TOOK THE CALL: Lia Husain R GENERAL INFORMATION PATIENT STATUS: Established Patient. LAST VISIT: 05.05.06 ALTERNATIVE PHONE NUMBER: [phone] WHO CALLED: Patient called. PHARMACY NUMBER: [phone] PROBLEMS: sx for 3 days tried claritin d, gustabo liu CONGESTION: Patient complains of head congestion. puffy eyes SECTION 1: DOCTOR`S RESPONSE: alli 05/30/06 at 02:04 pm MEDICATIONS: Call in to Pharmacy FLONASE NASAL SUSPENSION 50 MCG/ACT, SPRAY TWICE IN EACH NOSTRIL DAILY, 1 Dispensed, 11 Fills, status: NEW PRESCRIPTION, 05/30/2006. LIQUIBID-D ORAL TABLET 12 HR 40-600 MG, 1 Two Times A Day, As Needed for congestion, 60 Dispensed, status: NEW PRESCRIPTION, 05/30/2006. FINAL ACTION: theodora 05/30/06 at 02:15 pm Spoke with patient 05/30/06 at 02:17 pm. / alia Called pharmacy at 05/30/06 at 02:15 pm. / alia Electronically Signed by: Lia Husain on Tuesday, May 30, 2006 documented in this encounter Plan of Treatment Upcoming Encounters Date Type Department Care Team (Late st Contact Info) Description 12/11/2024 10:30 AM PROCESS ENGINEERING MANAGER Video Visit [facility] Internal Medicine [facility] [address] [facility] [address] [place] [address] Laura Pritchard NP [address] [address] 07/07/2025 11:00 AM CDT Office Visit [facility] Internal Medicine [facility] 189 [address] [facility] [address] [place] [address] Johnny Davis MD [address] [place], [place] [id number] documented as of this encounter Visit Diagnoses Not on filedocumented in this encounter Additional Health Concerns Infection Onset Date Last Indicated Resolved Time R/O COVID-19 09/26/2019 09/26/2019 09/26/2019 2:08 PM CDT R/O COVID-19 09/26/2019 09/26/2019 09/26/2019 3:24 PM CDT R/O COVID-19 09/26/2019 09/26/2019 09/28/2019 2:36 AM CDT documented as of this encounter Care Teams Testing Shaking Shipping Relationship Specialty Start Date End Date Johnny Davis MD [address] [place] [address] PCP - General Internal Medicine 12/12/12 noe 01/26/16 01/26/16 Parminder Parry 01/26/16 [facility] 01/26/16 PROVIDER PLUS 10/25/18 documented as of this encounter
--- OUTSIDE RECORDS SUMMARY | 2024-09-26 16:40 | XMS_ITS | Encounter Summary ---
Author Organization [facility] Address [address] [place] [address] Care Team Providers Care Sonography Technician Name Role Phone Johnny Davis MD Primary Care Provider Encounter Details Date Type Department Care Team (Late st Contact Info) Description 03/22/2006 Outpatient Historical [facility] Support [facility]. ([facility]) [address] [place] [address] Ajith Betancur MD NO ADDRESS ON FILE Social History Tobacco Use Types Packs/Day Years Used Date Smoking Tobacco: Never Assessed Comments Unknown Sex and Gender Information Value Date Recorded Sex Assigned at Not on file Legal Sex Female 4:28 AM DIRECTOR SPEECH Gender Identity Not on file Sexual Orientation Not on file documented as of this encounter Plan of Treatment Upcoming Encounters Date Type Department Care Team (Late st Contact Info) Description 12/11/2024 10:30 AM DIRECTOR SPEECH Video Visit [facility] Internal Medicine [facility] 189 [address] [facility] [address] [place] [address] Laura Pritchard NP [address] [facility] [address] [place] [address] 07/07/2025 11:00 AM CDT Office Visit [facility] Internal Medicine [facility] 189 [address] [facility] [address] [place] [address] Johnny Davis MD [address] [facility] [address] [place] [address] documented as of this encounter Visit Diagnoses Not on filedocumented in this encounter Additional Health Concerns Infection Onset Date Last Indicated Resolved Time R/O COVID-19 09/26/2019 09/26/2019 09/26/2019 2:08 PM CDT R/O COVID-19 09/26/2019 09/26/2019 09/26/2019 3:24 PM CDT R/O COVID-19 09/26/2019 09/26/2019 09/28/2019 2:36 AM CDT documented as of this encounter Care Teams Sonography Technician Relationship Specialty Start Date End Date Johnny Davis MD [address] [place] [address] PCP - General Internal Medicine 12/12/12 noe 01/26/16 01/26/16 Parminder Parry 01/26/16 [facility] 01/26/16 PROVIDER PLUS 10/25/18 documented as of this encounter
--- OUTSIDE RECORDS SUMMARY | 2024-09-26 16:40 | XMS_ITS | Encounter Summary ---
Author Organization [facility] Address [address] [place] [address] Care Team Providers Care Janitor Head Name Role Phone Johnny Davis MD Primary Care Provider Encounter Details Date Type Department Care Team (Latest Contact Info) Description 12/15/2003 Inpatient Historical [facility] PATIENT IN A BED Johnny Davis MD [address] [place] [address] [address] [place] [address] ASTHMA UNSPECIFIED WITH EXAC (Primary Dx) Social History Tobacco Use Types Packs/Day Years Used Date Smoking Tobacco: Never Assessed Comments Unknown Sex and Gender Information Value Date Recorded Sex Assigned at Not on file Legal Sex Female 4:28 AM PHLEBOTOMY TECHNICIAN Gender Identity Not on file Sexual Orientation Not on file documented as of this encounter Plan of Treatment Upcoming Encounters Date Type Department Care Team (Late st Contact Info) Description 12/11/2024 10:30 AM PHLEBOTOMY TECHNICIAN Video Visit [facility] Internal Medicine [facility] [address] [facility] [address] [place] [address] Laura Pritchard NP [address] [facility] [address] [place] [address] 07/07/2025 11:00 AM CDT Office Visit [facility] Internal Medicine [facility] [address] [facility] [address] [place] [address] Johnny Davis MD [address] [place] [address] [address] documented as of this encounter Visit Diagnoses Diagnosis Unspecified asthma, with exacerbation- Primary documented in this encounter Additional Health Concerns Infection Onset Date Last Indicated Resolved Time R/O COVID-19 09/26/2019 09/26/2019 09/26/2019 2:08 PM CDT R/O COVID-19 09/26/2019 09/26/2019 09/26/2019 3:24 PM CDT R/O COVID-19 09/26/2019 09/26/2019 09/28/2019 2:36 AM CDT documented as of this encounter Care Teams Janitor Head Relationship Specialty Start Date End Date Johnny Davis MD [address] [address] PCP - General Internal Medicine 12/12/12 noe 01/26/16 01/26/16 Parminder Parry 01/26/16 [facility] 01/26/16 PROVIDER PLUS 10/25/18 documented as of this encounter
--- OUTSIDE RECORDS SUMMARY | 2024-09-26 16:40 | XMS_ITS | Encounter Summary ---
Author Organization [facility] Address [address] [place] [address] Care Team Providers Care Bookkeeping Manager Name Role Phone Johnny Davis MD Primary Care Provider Encounter Details Date Type Department Care Team (Late st Contact Info) Description 04/01/2004 Outpatient [facility] [address] [place] [address] Benjamin Hirsch MD Social History Tobacco Use Types Packs/Day Years Used Date Smoking Tobacco: Never Assessed Comments Unknown Sex and Gender Information Value Date Recorded Sex Assigned at Not on file Legal Sex Female 4:28 AM SPECIAL WARFARE OPERATOR Gender Identity Not on file Sexual Orientation Not on file documented as of this encounter Plan of Treatment Upcoming Encounters Date Type Department Care Team (Late st Contact Info) Description 12/11/2024 10:30 AM SPECIAL WARFARE OPERATOR Video Visit [facility] Internal Medicine [facility] [address] [facility] [address] [place] [address] Laura Pritchard NP [address] [place] [address] 07/07/2025 11:00 AM CDT Office Visit [facility] Internal Medicine [facility] [address] [facility] [address] [place] [address] Johnny Davis MD [address] [facility] [address] [place] [address] documented as of this encounter Visit Diagnoses Not on filedocumented in this encounter Additional Health Concerns Infection Onset Date Last Indicated Resolved Time R/O COVID-19 09/26/2019 09/26/2019 09/26/2019 2:08 PM CDT R/O COVID-19 09/26/2019 09/26/2019 09/26/2019 3:24 PM CDT R/O COVID-19 09/26/2019 09/26/2019 09/28/2019 2:36 AM CDT documented as of this encounter Care Teams Bookkeeping Manager Relationship Specialty Start Date End Date Johnny Davis MD [address] [place] [address] PCP - General Internal Medicine 12/12/12 noe 01/26/16 01/26/16 Parminder Parry 01/26/16 [facility] 01/26/16 PROVIDER PLUS 10/25/18 documented as of this encounter
--- OUTSIDE RECORDS SUMMARY | 2024-09-26 16:40 | XMS_ITS | Encounter Summary ---
Author Organization [facility] Address [address] [place] [address] Care Team Providers Care College Tutor Name Role Phone Johnny Davis MD Primary Care Provider Encounter Details Date Type Department Care Team (Late st Contact Info) Description 04/24/[address] [facility] Support Serv. (Adt Cardiology-[facility]) [address] [place] [address] Jose Guadalupe Manning MD NO ADDRESS ON FILE Social History Tobacco Use Types Packs/Day Years Used Date Smoking Tobacco: Never Assessed Comments Unknown Sex and Gender Information Value Date Recorded Sex Assigned at Not on file Legal Sex Female 4:28 AM SCAFFOLDER Gender Identity Not on file Sexual Orientation Not on file documented as of this encounter Plan of Treatment Upcoming Encounters Date Type Department Care Team (Late st Contact Info) Description 12/11/2024 10:30 AM SCAFFOLDER Video Visit [facility] Internal Medicine [facility] [address] [facility] [address] [place] [address] Laura Pritchard NP [address] [facility] [address] [place] [address] 07/07/2025 11:00 AM CDT Office Visit [facility] Internal Medicine [facility] [address] [facility] [address] [place] [address] Johnny Davis MD [address] [facility] [address] [place] [address] documented as of this encounter Visit Diagnoses Not on filedocumented in this encounter Additional Health Concerns Infection Onset Date Last Indicated Resolved Time R/O COVID-19 09/26/2019 09/26/2019 09/26/2019 2:08 PM CDT R/O COVID-19 09/26/2019 09/26/2019 09/26/2019 3:24 PM CDT R/O COVID-19 09/26/2019 09/26/2019 09/28/2019 2:36 AM CDT documented as of this encounter Care Teams College Tutor Relationship Specialty Start Date End Date Johnny Davis MD [address] [place] [address] PCP - General Internal Medicine 12/12/12 noe 01/26/16 01/26/16 Parminder Parry 01/26/16 [facility] 01/26/16 PROVIDER PLUS 10/25/18 documented as of this encounter
--- OUTSIDE RECORDS SUMMARY | 2024-09-26 16:40 | XMS_ITS | Encounter Summary ---
Author Organization [facility] Address [address] [place] [address] Care Team Providers Care Gravel Hauler Name Role Phone Johnny Davis MD Primary Care Provider Encounter Details Date Type Department Care Team (Late st Contact Info) Description 11/05/2001 Outpatient Historical [facility] Internal Medicine [facility] [address] [facility] [address] [place] [address] Lobito Grossman MD NO ADDRESS ON FILE Social History Tobacco Use Types Packs/Day Years Used Date Smoking Tobacco: Never Assessed Comments Unknown Sex and Gender Information Value Date Recorded Sex Assigned at Not on file Legal Sex Female 4:28 AM SOFTWARE ASSET MANAGER Gender Identity Not on file Sexual Orientation Not on file documented as of this encounter Plan of Treatment Upcoming Encounters Date Type Department Care Team (Late st Contact Info) Description 12/11/2024 10:30 AM SOFTWARE ASSET MANAGER Video Visit [facility] Internal Medicine [facility] [address] [facility] [address] [place] [address] Laura Pritchard NP [address] [facility] [address] [place] [address] 07/07/2025 11:00 AM CDT Office Visit [facility] Internal Medicine [facility] [address] [facility] [address] [place] [address] Johnny Davis MD [address] [facility] [address] [place] [address] documented as of this encounter Visit Diagnoses Not on filedocumented in this encounter Additional Health Concerns Infection Onset Date Last Indicated Resolved Time R/O COVID-19 09/26/2019 09/26/2019 09/26/2019 2:08 PM CDT R/O COVID-19 09/26/2019 09/26/2019 09/26/2019 3:24 PM CDT R/O COVID-19 09/26/2019 09/26/2019 09/28/2019 2:36 AM CDT documented as of this encounter Care Teams Gravel Hauler Relationship Specialty Start Date End Date Johnny Davis MD [address] [place] [address] PCP - General Internal Medicine 12/12/12 noe 01/26/16 01/26/16 Parminder Parry 01/26/16 [facility] 01/26/16 PROVIDER PLUS 10/25/18 documented as of this encounter
--- OUTSIDE RECORDS SUMMARY | 2024-09-26 16:40 | XMS_ITS | Encounter Summary ---
Author Organization [facility] Address [address] [place] [address] Care Team Providers Care Paper Coating Machine Operator Name Role Phone Johnny Davis MD Primary Care Provider Encounter Details Date Type Department Care Team (Late st Contact Info) Description 11/13/2001 Outpatient Historical [facility] Internal Medicine [facility] [address] [facility] [address] [place] [address] Johnny Davis MD [address] [facility] [address] [place] [address] Social History Tobacco Use Types Packs/Day Years Used Date Smoking Tobacco: Never Assessed Comments Unknown Sex and Gender Information Value Date Recorded Sex Assigned at Not on file Legal Sex Female 4:28 AM PACKAGING MATERIALS INSPECTOR Gender Identity Not on file Sexual Orientation Not on file documented as of this encounter Plan of Treatment Upcoming Encounters Date Type Department Care Team (Late st Contact Info) Description 12/11/2024 10:30 AM PACKAGING MATERIALS INSPECTOR Video Visit [facility] Internal Medicine [facility] [address] [facility] [address] [place] [address] Laura Pritchard, MARYJO [address] [place] [address] 07/07/2025 11:00 AM CDT Office Visit [facility] Internal Medicine [facility] [address] [facility] [address] [place] [address] Johnny Davis MD [address] [id number] documented as of this encounter Visit Diagnoses Not on filedocumented in this encounter Additional Health Concerns Infection Onset Date Last Indicated Resolved Time R/O COVID-19 09/26/2019 09/26/2019 09/26/2019 2:08 PM CDT R/O COVID-19 09/26/2019 09/26/2019 09/26/2019 3:24 PM CDT R/O COVID-19 09/26/2019 09/26/2019 09/28/2019 2:36 AM CDT documented as of this encounter Care Teams Paper Coating Machine Operator Relationship Specialty Start Date End Date Johnny Davis MD [address] [place] [address] PCP - General Internal Medicine 12/12/12 noe 01/26/16 01/26/16 Parminderoc Parry 01/26/16 [facility] 01/26/16 PROVIDER PLUS 10/25/18 documented as of this encounter
--- OUTSIDE RECORDS SUMMARY | 2024-09-26 16:40 | XMS_ITS | Encounter Summary ---
Author Organization [facility] Address [address] [place] [address] Care Team Providers Care Deep Well Contractor Name Role Phone Johnny Davis MD Primary Care Provider Encounter Details Date Type Department Care Team (Late st Contact Info) Description 04/05/2006 Orders Only [facility] Internal Medicine [facility] [place] [facility] [address] [facility] [address] [place] [address] Johnny Davis MD [address] 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 MEDICATIONS: RN/MA reviewed medications. CHIEF COMPLAINT Here for follow after hospitalization.SEEING DR PARDO ON MONDAY. PT DIAGNOSED WITHPERICARDITIS 03/22/06. PT DOING FINE AND NO SX'S LONG ON THE NAPROXEN. HISTORY: HISTORY: 493.20-ASTHMA WITH COPD The asthma has improved. The patient complains of a cough, has shortness ofbreath. No complications noted from the medication presently being used. Unclear why she is not using the ADVAIR any longer, has been on steroids intermittently since 11/11, now persistent. 786.50-CHEST PAIN UNSPECIFIED The chest pain has improved. The patient denies orthopnea, denies significant palpitations, denies pedal edema, has shortness of breath. No complications noted from the medication presently being used. In hospital cath 30 % RCA, 40 % diagonal lesion on cath, heard rub once, EKG normal. Has improved but pain increases now with deep inspiration. 562.11-DIVERTICULITIS COLON treated recently , now lower abdominal pain again, no fevers, CURRENT MEDICATION LIST: ALPRAZOLAM ORAL TABLET 0.25 MG, 1 Three Times A Day, As Needed SINGULAIR ORAL TABLET 10 MG, 1 Every Day NORTRIPTYLINE HCL ORAL CAPSULE CONVENTIONAL 50 MG, 1 Every Day At Bedtime CITALOPRAM HYDROBROMIDE ORAL TABLET 40 MG, 1 Every Day FLEXERIL ORAL TABLET 10 MG, 1 Every Day At Bedtime ALBUTEROL INHALATION AEROSOL SOLUTION 90 MCG/ACT, 2 puffs qid prn VICODIN ORAL TABLET 5-500 MG, 1 Three Times A Day, As Needed NEXIUM ORAL CAPSULE DELAYED RELEASE 40 MG, 1 Every Day NAPROXEN ORAL TABLET 500 MG, 1 Two Times A Day PREDNISONE ORAL TABLET 20 MG, 1/2 PO Q DAY LEVAQUIN ORAL TABLET 500 MG, 1 Every Day FLAGYL ORAL TABLET 250 MG, 1 Three Times A Day SOCIAL HISTORY: TOBACCO USE: Currently smokes 1/2 PPD. 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 EXERCISES: The patient is not exercising regularly. DIET: Follows no specific diet. PHYSICAL EXAMINATION: CONSTITUTIONAL: GENERAL APPEARANCE: Healthy appearing patient in no distress. EARS, NOSE, MOUTH AND THROAT: EARS: Tympanic membranes shiny without retraction. Canals unremarkable. Hearing grossly normal. ORAL: Inspection of gums, lips, palate, and teeth normal. No scars, lesions, or masses. Oral mucosaunremarkable with non-inflamed posterior pharynx. NECK/THYROID: Trachea midline. No thyroid enlargement, tenderness, or mass. No supraclavicular or cervical adenopathy. RESPIRATORY: MILD EXPIRATORY WHEEZE WITH FORCED EXPIRATION HEARD THROUGHOUT BOTH LUNG GALDAMEZ. CARDIOVASCULAR: CARDIAC: Regular rhythm. No murmurs, rubs, or gallops. ARTERIAL: No aortic bruits. EDEMA/VARICOSITIES OF EXTREMITIES: No edema or varicosities. BREAST/CHEST: COSTOCHONDRAL CARTILAGE TENDERNESS BILATERALLY. GASTROINTESTINAL: ABDOMEN: Soft, non-tender, without masses. Bowel sounds active. LIVER/SPLEEN/KIDNEY: No hepatosplenomegaly, tenderness or nodularity. Kidneys not palpable. ASSESSMENT/PLAN: 477.9-RHINITIS ALLERGIC UNSPECIFIED ASSESSMENT: The patient's allergic rhinitis continues to remain stable. Will not change medication,continue to monitor for complications. Clinical guidelines reviewed. 493.20-ASTHMA WITH COPD ASSESSMENT: The asthma is stable. No complications noted from the medication presently being used. Need to resume the Advair MEDICATIONS: ADVAIR DISKUS INHALATION MISCELLANEOUS 500-50 MCG/DOSE, 1 PUFF BID, 1 Dispensed, 11 Fills, status: NEW PRESCRIPTION, 04/05/2006. PREDNISONE ORAL TABLET 20 MG, 1/2 PO Q DAY, 30 Dispensed, 5 Fills, status: NEW PRESCRIPTION, 04/05/2006. will actively wean this over a few weeks as the ADvair works. 733.6-OTHER DISORDERS OF BONE AND CARTILAGE ASSESSMENT: daily stretching, walk , stress management. 562.11-DIVERTICULITIS COLON ASSESSMENT: may be flaring again, will watch and if worse over the weekend , use the abx, call GI to repeat the colon also. MEDICATIONS: LEVAQUIN ORAL TABLET 500 MG, 1 Every Day, 10 Dispensed, status: NEW PRESCRIPTION, 04/05/2006. FLAGYL ORAL TABLET 250 MG, 1 Three Times A Day, 30 Dispensed, status: NEW PRESCRIPTION, 04/05/2006. RETURN VISIT : Patient instructed to return in 1 month. Electronically Signed by: Johnny Davis MD on Sunday, April 09, 2006 documented in this encounter Plan of Treatment Upcoming Encounters Date Type Department Care Team (Late st Contact Info) Description 12/11/2024 10:30 AM DIRECTOR OF LABOR AND DELIVERY Video Visit [facility] Internal Medicine [facility] [place] [facility] [address] [address] Laura Pritchard, MARYJO [address] [facility] [address] [place] [address] 07/07/2025 11:00 AM CDT Office Visit [facility] Internal Medicine [facility] [place] [facility] [address] [facility] [address] [place] [address] Johnny Davis MD [address] [facility] [address] [place] [address] documented as of this encounter Visit Diagnoses Not on filedocumented in this encounter Additional Health Concerns Infection Onset Date Last Indicated Resolved Time R/O COVID-19 09/26/2019 09/26/2019 09/26/2019 2:08 PM CDT R/O COVID-19 09/26/2019 09/26/2019 09/26/2019 3:24 PM CDT R/O COVID-19 09/26/2019 09/26/2019 09/28/2019 2:36 AM CDT documented as of this encounter Care Teams Deep Well Contractor Relationship Specialty Start Date End Date Johnny Davis MD [address] [facility] [address] [place] [address] PCP - General Internal Medicine 12/12/12 noe 01/26/16 01/26/16 Parminder Parry 01/26/16 [facility] 01/26/16 PROVIDER PLUS 10/25/18 documented as of this encounter
--- OUTSIDE RECORDS SUMMARY | 2024-09-26 16:40 | XMS_ITS | Encounter Summary ---
Author Organization [facility] Address [address] [place] [address] Care Team Providers Care Aerosol Line Operator Name Role Phone Johnny Davis MD Primary Care Provider Encounter Details Date Type Department Care Team (Late st Contact Info) Description 03/01/2001 Outpatient Historical [facility] Internal Medicine [facility] [address] [facility] [address] [place] [address] Lobito Grossman MD NO ADDRESS ON FILE Social History Tobacco Use Types Packs/Day Years Used Date Smoking Tobacco: Never Assessed Comments Unknown Sex and Gender Information Value Date Recorded Sex Assigned at Not on file Legal Sex Female 4:28 AM 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 Gender Identity Not on file Sexual Orientation Not on file documented as of this encounter Plan of Treatment Upcoming Encounters Date Type Department Care Team (Late st Contact Info) Description 12/11/2024 10:30 AM 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 Video Visit [facility] Internal Medicine [facility] [address] [facility] [address] [place] [address] Laura Pritchard NP [address] [facility] [address] [place] [address] 07/07/2025 11:00 AM CDT Office Visit [facility] Internal Medicine [facility] [address] [facility] [address] [place] [address] Johnny Davis MD [address] [facility] [address] [place] [address] documented as of this encounter Visit Diagnoses Not on filedocumented in this encounter Additional Health Concerns Infection Onset Date Last Indicated Resolved Time R/O COVID-19 09/26/2019 09/26/2019 09/26/2019 2:08 PM CDT R/O COVID-19 09/26/2019 09/26/2019 09/26/2019 3:24 PM CDT R/O COVID-19 09/26/2019 09/26/2019 09/28/2019 2:36 AM CDT documented as of this encounter Care Teams Aerosol Line Operator Relationship Specialty Start Date End Date Johnny Davis MD [address] [place] [address] PCP - General Internal Medicine 12/12/12 noe 01/26/16 01/26/16 Parminder Parry 01/26/16 [facility] 01/26/16 PROVIDER PLUS 10/25/18 documented as of this encounter
--- OUTSIDE RECORDS SUMMARY | 2024-09-26 16:40 | XMS_ITS | Encounter Summary ---
Author Organization [facility] Address [address] [place] [address] Care Team Providers Care Boiler Room Operator Name Role Phone Johnny Davis MD Primary Care Provider [phone] Encounter Details Date Type Department Care Team (Late st Contact Info) Description 12/20/[address] [facility] Internal Medicine [facility] [address] [place] [address]. 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 Internal Medicine [facility] [address] [facility] [address] [place] [address] Laura Pritchard NP [address] [place] [address] 07/07/2025 11:00 AM CDT Office Visit [facility] Internal [facility] [address] [facility] [address] [place] [address] Johnny Davis MD [address] [place] [address] [address] [place] [address] documented as of this encounter Visit Diagnoses Not on filedocumented in this encounter Additional Health Concerns Infection Onset Date Last Indicated Resolved Time R/O COVID-19 09/26/2019 09/26/2019 09/26/2019 2:08 PM CDT R/O COVID-19 09/26/2019 09/26/2019 09/26/2019 3:24 PM CDT R/O COVID-19 09/26/2019 09/26/2019 09/28/2019 2:36 AM CDT documented as of this encounter Care Teams Boiler Room Operator Relationship Specialty Start Date End Date Johnny Davis MD [address] [place] [address] PCP - General Internal Medicine 12/12/12 noe 01/26/16 01/26/16 Parminder Parry 01/26/16 [facility] 01/26/16 PROVIDER PLUS 10/25/18 documented as of this encounter
--- OUTSIDE RECORDS SUMMARY | 2024-09-26 16:40 | XMS_ITS | Encounter Summary ---
Author Organization [facility] Address [address] [place] [address] Care Team Providers Care Burn Out Tender Lace Name Role Phone Johnny Davis MD Primary Care Provider Encounter Details Date Type Department Care Team (Late st Contact Info) Description 07/29/2002 Outpatient Historical [facility] Internal Medicine [facility] [address] [facility] [address] [place] [address] Johnny Davis MD [address] [facility] [address] [place] [address] Social History Tobacco Use Types Packs/Day Years Used Date Smoking Tobacco: Never Assessed Comments Unknown Sex and Gender Information Value Date Recorded Sex Assigned at Not on file Legal Sex Female 4:28 AM MATERIAL PROCESSOR Gender Identity Not on file Sexual Orientation Not on file documented as of this encounter Plan of Treatment Upcoming Encounters Date Type Department Care Team (Late st Contact Info) Description 12/11/2024 10:30 AM MATERIAL PROCESSOR Video Visit [facility] Internal Medicine [facility] [address] [facility] [address] [place] [address] Laura Pritchard, MARYJO [address] [place] [address] 07/07/2025 11:00 AM CDT Office Visit [facility] Internal Medicine [facility] [address] [facility] [address] [place] [address] Johnny Davis MD [address] [id number] documented as of this encounter Visit Diagnoses Not on filedocumented in this encounter Additional Health Concerns Infection Onset Date Last Indicated Resolved Time R/O COVID-19 09/26/2019 09/26/2019 09/26/2019 2:08 PM CDT R/O COVID-19 09/26/2019 09/26/2019 09/26/2019 3:24 PM CDT R/O COVID-19 09/26/2019 09/26/2019 09/28/2019 2:36 AM CDT documented as of this encounter Care Teams Burn Out Tender Lace Relationship Specialty Start Date End Date Johnny Davis MD [address] [place] [address] PCP - General Internal Medicine 12/12/12 noe 01/26/16 01/26/16 Parminderoc Parry 01/26/16 [facility] 01/26/16 PROVIDER PLUS 10/25/18 documented as of this encounter
--- OUTSIDE RECORDS SUMMARY | 2024-09-26 16:40 | XMS_ITS | Encounter Summary ---
Author Organization [facility] Address [address] [place] [address] Care Team Providers Care Stack Matcher Name Role Phone Johnny Davis MD Primary Care Provider Encounter Details Date Type Department Care Team (Late st Contact Info) Description 12/15/[address] [facility] Support Serv. (Adt Cardiology-[facility]) [address] [address] Murray Moser MD [address] [place], [place] [id number] Social History Tobacco Use Types Packs/Day Years Used Date Smoking Tobacco: Never Assessed Comments Unknown Sex and Gender Information Value Date Recorded Sex Assigned at Not on file Legal Sex Female 4:28 AM ROOTER OPERATOR Gender Identity Not on file Sexual Orientation Not on file documented as of this encounter Plan of Treatment Upcoming Encounters Date Type Department Care Team (Late st Contact Info) Description 12/11/2024 10:30 AM ROOTER OPERATOR Video Visit [facility] Internal Medicine [facility] [place] [facility] [address] [address] Laura Pritchard, MARYJO [address] [facility] [address] [place] [address] 07/07/2025 11:00 AM CDT Office Visit [facility] Internal Medicine [facility] [place] [facility] [address] [address] Johnny Davis MD [address] [id number] documented as of this encounter Visit Diagnoses Not on filedocumented in this encounter Additional Health Concerns Infection Onset Date Last Indicated Resolved Time R/O COVID-19 09/26/2019 09/26/2019 09/26/2019 2:08 PM CDT R/O COVID-19 09/26/2019 09/26/2019 09/26/2019 3:24 PM CDT R/O COVID-19 09/26/2019 09/26/2019 09/28/2019 2:36 AM CDT documented as of this encounter Care Teams Stack Matcher Relationship Specialty Start Date End Date Johnny Davis MD [address] [place] [address] PCP - General Internal Medicine 12/12/12 noe 01/26/16 01/26/16 Parminderoc Parry 01/26/16 [facility] 01/26/16 PROVIDER PLUS 10/25/18 documented as of this encounter
--- OUTSIDE RECORDS SUMMARY | 2024-09-26 16:40 | XMS_ITS | Encounter Summary ---
Author Organization [facility] Address [address] [place] [address] Care Team Providers Care Car Jockey Name Role Phone Johnny Davis MD Primary Care Provider Encounter Details Date Type Department Care Team (Late st Contact Info) Description 04/24/2005 Outpatient Historical [facility] [address] [place] [address] [place] [address] Sung Nazario MD [address] [address] Social History Tobacco Use Types Packs/Day Years Used Date Smoking Tobacco: Never Assessed Comments Unknown Sex and Gender Information Value Date Recorded Sex Assigned at Not on file Legal Sex Female 4:28 AM ADVERTISING SALES ASSOCIATE Gender Identity Not on file Sexual Orientation Not on file documented as of this encounter Plan of Treatment Upcoming Encounters Date Type Department Care Team (Late st Contact Info) Description 12/11/2024 10:30 AM ADVERTISING SALES ASSOCIATE Video Visit [facility] Internal Medicine [facility] [address] [address] Laura Pritchard NP [address] [place] [address] 07/07/2025 11:00 AM CDT Office Visit [facility] Internal Medicine [facility] [address] [address] Johnny Davis MD [address] [address] documented as of this encounter Visit Diagnoses Not on filedocumented in this encounter Additional Health Concerns Infection Onset Date Last Indicated Resolved Time R/O COVID-19 09/26/2019 09/26/2019 09/26/2019 2:08 PM CDT R/O COVID-19 09/26/2019 09/26/2019 09/26/2019 3:24 PM CDT R/O COVID-19 09/26/2019 09/26/2019 09/28/2019 2:36 AM CDT documented as of this encounter Care Teams Car Jockey Relationship Specialty Start Date End Date Johnny Davis MD [address] [address] PCP - General Internal Medicine 12/12/12 noe 01/26/16 01/26/16 Parminder Parry 01/26/16 [facility] 01/26/16 PROVIDER PLUS 10/25/18 documented as of this encounter
--- OUTSIDE RECORDS SUMMARY | 2024-09-26 16:40 | XMS_ITS | Encounter Summary ---
Author Organization [facility] Address [address] [place] [address] Care Team Providers Care Sieve Repairer Name Role Phone Johnny Davis MD Primary Care Provider Encounter Details Date Type Department Care Team (Late st Contact Info) Description 11/09/2001 Outpatient Historical [facility] Internal Medicine [facility] [address] [facility] [address] [place] [address] Lobito Grossman MD NO ADDRESS ON FILE Social History Tobacco Use Types Packs/Day Years Used Date Smoking Tobacco: Never Assessed Comments Unknown Sex and Gender Information Value Date Recorded Sex Assigned at Not on file Legal Sex Female 4:28 AM KOSHER DIETARY SERVICE SUPERVISOR Gender Identity Not on file Sexual Orientation Not on file documented as of this encounter Plan of Treatment Upcoming Encounters Date Type Department Care Team (Late st Contact Info) Description 12/11/2024 10:30 AM KOSHER DIETARY SERVICE SUPERVISOR Video Visit [facility] Internal Medicine [facility] [address] [facility] [address] [address] [place] [address] Laura Pritchard NP [address] [facility] [address] [place] [address] 07/07/2025 11:00 AM CDT Office Visit [facility] Internal Medicine [facility] [address] [facility] [address] [address] [place] [address] Johnny Davis MD [address] [facility] [address] [place] [address] documented as of this encounter Visit Diagnoses Not on filedocumented in this encounter Additional Health Concerns Infection Onset Date Last Indicated Resolved Time R/O COVID-19 09/26/2019 09/26/2019 09/26/2019 2:08 PM CDT R/O COVID-19 09/26/2019 09/26/2019 09/26/2019 3:24 PM CDT R/O COVID-19 09/26/2019 09/26/2019 09/28/2019 2:36 AM CDT documented as of this encounter Care Teams Sieve Repairer Relationship Specialty Start Date End Date Johnny Davis MD [address] [place] [id number] PCP - General Internal Medicine 12/12/12 noe 01/26/16 01/26/16 Parminder Parry 01/26/16 [facility] 01/26/16 PROVIDER PLUS 10/25/18 documented as of this encounter
--- OUTSIDE RECORDS SUMMARY | 2024-09-26 16:40 | XMS_ITS | Clinical Summary ---
Author Organization [facility] Address [address] [place] [address] Phone Care Team Providers Care Spring Fitter Name Role Phone Johnny Davis MD Primary Care Provider Allergies Active Allergy Reactions Criticality Noted Date Comments Dill Oil Shortness of Breath/Wheezing High 02/26/2008 Egg Other (See Comments) 05/02/2005 General swelling/wheezing Gabapentin Other (See Comments) 08/27/2014 Severe tremor, involuntary movement Gel Anaphylaxis High 11/25/2009 Gel caps Hymenoptera Allergenic Extract Shortness of Breath/Wheezing High 02/26/2008 Bee stings Iodine Other (See Comments) 04/05/2006 Pt states topical betadine no reaction Levofloxacin Other (See Comments) 04/12/2010 Achilles heel pain Morphine Nausea and Vomiting Low 11/25/2009 Penicillins 04/05/2006 Tomato Rash Low 02/26/2008 Medications aspirin (ECOTRIN EC) 81 mg Tablet, Delayed Release (E.C.) Take 81 mg by mouth daily. Active fluticasone-u meclidinium-v ilanterol (Trelegy Ellipta) 100-62.5-25 mcg Disk with Device Take 1 Puff by inhalation daily. 60 Each 11 07/22/19 21 Active ferrous sulfate 325 mg (65 mg iron) tablet Take 1 Tablet (325 mg) by mouth daily. 07/24/19 23 Active cholecalcifer ol, Vitamin D3, 50 mcg (2,000 unit) Tablet Take 1 Tablet (2,000 Units) by mouth daily. 07/24/19 23 Active upadacitinib (Rinvoq) 15 mg Tablet Sustained Release 24HR Take 15 mg by mouth daily. Active EPINEPHrine (EPIPEN) 0.3 mg/0.3 mL Auto-Injector Indications:H x of bee sting allergy Inject 0.3 mL (0.3 mg) by intramuscular injection 1 time daily as needed for Anaphylaxis. 2 Each 1 07/20/19 24 Active pantoprazole (PROTONIX) 40 mg Tablet, Delayed Release (E.C.) Take 1 tablet by mouth twice daily 200 Tablet 3 10/06/19 24 Active montelukast (SINGULAIR) 10 mg tabletIndicat ions:Panlobul ar emphysema (CMS/HCC) Take 1 tablet by mouth once daily 100 Tablet 3 02/02/20 24 Active nortriptyline (PAMELOR) 75 mg capsule TAKE 2 CAPSULES BY MOUTH ONCE DAILY AT BEDTIME 200 Capsule 3 05/19/19 25 Active bisoprolol (ZEBETA) 5 mg tablet Take 1 Tablet (5 mg) by mouth daily. 30 Tablet 5 06/13/19 25 Active FLUoxetine (PROzac) 20 mg capsule Take 1 Capsule (20 mg) by mouth daily. 30 Capsule 5 07/04/19 25 Active nortriptyline (PAMELOR) 75 mg capsule Take 1 Capsule (75 mg) by mouth daily at bedtime. Per Stromstorffer 100 Capsule 3 07/04/19 25 Active clonazePAM (KlonoPIN) 1 mg tabletIndicat ions:Generali zed anxiety disorder TAKE 1 TABLET BY MOUTH IN THE MORNING AND 1 TABLET IN THE EVENING FOR ANXIETY 90 Tablet 5 07/09/19 25 Active atorvastatin (LIPITOR) 20 mg tablet TAKE 1 TABLET BY MOUTH ONCE DAILY LATE IN THE DAY 100 Tablet 3 08/20/19 25 Active betamethasone valerate (VALISONE) 0.1 % Cream Apply to affected area 2 times daily. 90 Gram 3 08/27/19 25 Active HYDROcodone-a cetaminophen (NORCO) 10-325 mg TabletIndicat ions:Trigemin al neuralgia Take 1 Tablet by mouth 2 times daily as needed for Pain, Moderate. Max Daily Amount: 2 Tablets 60 Tablet 08/27/19 25 Active predniSONE (DELTASONE) 20 mg tablet 2 po daily x 5 days, then 1 po daily x 5 days 15 Tablet 2 08/27/19 25 Active albuterol sulfate HFA 90 mcg/actuation aerosol inhaler INHALE 2 PUFFS BY MOUTH EVERY 6 HOURS NEEDED FOR WHEEZING 9 Gram 08/05/20 25 Active albuterol sulfate HFA 90 mcg/actuation aerosol inhaler INHALE 2 PUFFS BY MOUTH EVERY 6 HOURS NEEDED FOR WHEEZING 9 Gram 08/20/19 25 025 Discontinued Active Problems Patient Care Coordination No te Formatting of this note migh t be different from the original. HIGH RISK-CALL IN-GET IN-10/20 Problem Noted Date Diagnosed Date Flexural eczema 08/26/2024 Iron deficiency anemia 07/30/2024 Closed fracture of right hip 02/26/2022 Tobacco use 01/20/2022 Panlobular emphysema 11/02/2019 Trigeminal neuralgia 10/25/2018 Atherosclerosis of [place] co ronary artery of [place] heart without angina pectoris 08/21/2017 Overview (08/21/2017): Noted on CT scan of chest Arteriosclerosis of both carotid arteries 2017 Arteriosclerosis of abdominal aorta 01/29/2016 Major depressive disorder wi th single episode, in partial remission 05/04/2013 Overview (08/18/2017): Updated Depression per visit note with Dr. Davis on 02/20/17./clk GERD (gastroesophageal reflux disease) 4 Benign hypertension 06/29/2010 Pure hypercholesterolemia 09/18/2006 Generalized anxiety disorder 05/02/2005 Allergic rhinitis, cause unspecified 12/05/2003 Unspecified sleep apnea 12/05/2003 Iron deficiency anemia due to chronic blood loss History of TIA (transient ischemic attack) and s troke Migraine without aura and wi th status migrainosus, not intractable Resolved Problems Problem Noted Date Diagnosed Date Resolved Date Generalized weakness 12/29/2022 024 Iron deficiency anemia 12/29/202206/05 Acute urinary retention 02/28/202207/07 Acute blood loss anemia 02/28/202207/07 Hypokalemia 02/28/2022 07/21/2022 Orthostatic hypotension 01/23/2022/2 03/2022 Headache, variant migraine 01/19/2021 1 03/23/2021 Hemiparesis of left dominant side due to non-cerebrovascular etiology 01/19/2021 04/29/2021 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 01/19/2021 01/31/2021 Dysphagia 05/28/2020 06/06/2023 Hypokalemia 05/28/2020 01/17/2021 Leukocytosis (leucocytosis) 05/28/2020 01/31/2021 Symptomatic anemia 05/28/2020 Post-tussive emesis 05/28/2020 01/18/20 21 Dermatitis 05/28/2020 06/06/2023 Sacroiliac strain 05/23/2020 07/03/2024 Left ventricular hypertrophy 11/02/2019 07/21/2022 Cerebral ischemia 11/01/2018 04/29/2021 Fatigue 11/01/2018 01/17/2021 Chronic obstructive asthma 06/23/2018 0 04/29/2021 Intractable episodic cluster headache 12/09/2017 06/06/2023 COPD with exacerbation 03/10/201708/21 HUYEN (acute kidney injury) 03/10/2017 Left lower quadrant pain 12/02/2016 Viral upper respiratory tract infection 12/02/2016 02/23/2017 Pure hypercholesterolemia 11/09/2015 Fibromyalgia 12/09/2014 07/03/2024 Myofascial pain syndrome 06/20/2014 Muscle weakness (generalized) 04/10/2014 11/09/2015 Memory loss 04/10/2014 02/23/2017 Chest pain 03/24/2013 08/24/2013 Epigastric abdominal pain 03/24/2013 Weight loss, unintentional 02/20/2013 0 08/24/2013 Egg allergy 12/23/2011 06/06/2023 Procedure refused mammogram 09/29/2011 02/27/2022 Rotator cuff tendinitis 12/22/2010 06/0 03/2011 Acute diverticulitis 08/23/2010 018 Diverticulitis 04/01/2010 07/01/2010 Memory loss 03/23/2010 07/01/2010 Trochanteric bursitis 03/22/20102010 Screening for malignant neop lasms of the breast 06/22/2009 03/23/2010 Unspecified asthma, with exacerbation 10/25/2006 02/26/2008 Acute bronchitis 10/25/2006 02/26/2008 Tobacco use disorder 09/18/2006 021 Unspecified polyarthropathy or polyarthritis, site unspecified 05/05/2006 02/26/2008 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 02/26/2008 Diverticulitis of colon (wit hout mention of hemorrhage)(562.11) 04/05/2006 02/26/2008 Chest pain, unspecified 04/05/200602/07 Other convulsions 05/02/2005 02/26/2008 Other malaise and fatigue 06/11/2004 Myalgia and myositis, unspecified 06/10/2004 02/26/2008 Obstructive chronic bronchit is with exacerbation 12/05/2003 06/23/2018 Abdominal or pelvic swelling , mass or lump, unspecified site 12/05/2003 03/23/2010 Diarrhea 12/05/2003 02/26/2008 Contact dermatitis and other eczema, due to unspecified cause 12/05/2003 03/23/2010 Headache(784.0) 12/05/2003 07/09/2011 Esophageal reflux 11/06/2001 02/26/2008 Acute sinusitis, unspecified 10/14/1999 02/26/2008 Intractable abdominal pain 0 04/11/2017 Constipation 07/03/2024 Encounters Date Type Department Care Team Description 09/24/2024 Telephone [facility] Internal Medicine [facility] [address] [place] [address] Johnny Davis MD Medication Refill (Refill sent on 09/10/2024 to the [facility] pharmacy on file. ) 09/10/2024 Refill [facility] Internal Medicine [facility] [place] [address] Johnny Davis MD 08/27/2024 External Device Data STL ABSTRACTION Provider, Abstract 08/27/2024 External Device Data [facility] ABSTRACTION Provider, Abstract 08/27/2024 External Device Data [facility] ABSTRACTION Provider, Abstract 08/26/2024 3:45 PM CDT Office Visit [facility] Medicine [facility] [address] Johnny Davis MD Orthostatic hypotension (Primary Dx); Other iron deficiency anemia; Trigeminal neuralgia; Panlobular emphysema (CMS/HCC); Flexural eczema 08/23/2024 Telephone [facility] Internal Medicine [facility] [address] [address] Johnny Davis MD ER Follow Up 08/20/2024 10:44 AM CDT - 08/20/2024 2:33 PM CDT Emergency [facility] Emergency Department [address] [place] [address] Mata Navarro MD Caffrey, Charles Raymond, MD Kane, Patrick J, MD Syncope and collapse (Primary Dx); Orthostatic dizziness; Anemia, unspecified type; Acute pain of left knee Discharge Disposition: Home or Self Care 08/20/2024 8:41 AM CDT - 08/20/2024 11:59 PM CDT Hospital Encounter [facility] Infusion Center 2nd Fl [address] [place] [address] Johnny Davis MD Infusion Chair 8, [address] Discharge Disposition: Home or Self Care 08/20/2024 Orders Only [facility] Gynecologic Oncology [place] [address] [place] [address] Nadine Tian DO 08/17/2024 Refill [facility] [address] [address] Johnny Davis MD 08/17/2024 Refill [facility] Internal Medicine [facility] [address] [address] Sharmaine Avila MD 08/13/2024 8:50 AM CDT - 08/13/2024 11:59 PM CDT Hospital Encounter [facility] Infusion Center 2nd Fl [address] [place] [address] Johnny Davis MD Infusion Chair 5, 2nd Floor [facility] Discharge Disposition: Home or Self Care 08/08/2024 Telephone [facility] Internal [facility] [address] [address] Johnny Davis MD ROUTING 08/07/2024 Telephone [facility] Internal Medicine [facility] [address] [address] Johnny Davis MD Provider Call 07/30/2024 Telephone [facility] Internal Medicine [facility] [address] [address] Johnny Davis MD Results 07/29/2024 Telephone [facility] Internal Medicine [facility] [address] [address] Johnny Davis MD ROUTING 07/23/2024 Orders Only [facility] [address] [address] Provider, Abstract 07/17/2024 Refill [facility] Internal Medicine [facility] [address] [address] Johnny Davis MD Trigeminal neuralgia 07/09/2024 Refill [facility] Internal Medicine [facility] [address] [address] Mecca Jung, Generalized anxiety disorder 07/03/2024 10:00 AM CDT Office Visit [facility] Internal Medicine [facility] [address] [address] Johnny Davis MD Routine general medical examination at a health care facility (Primary Dx); Panlobular emphysema (CMS/HCC); Tobacco use; Pure hypercholesterolemi a; Migraine without aura and with status migrainosus, not intractable; Major depressive disorder with single episode, in partial remission; Iron deficiency anemia due to chronic blood loss; Generalized anxiety disorder; Benign hypertension; Atherosclerosis of [place] coronary artery of [place] heart without angina pectoris; Declined influenza vaccine; Menopause 06/28/2024 Telephone [facility] Internal Medicine [facility] [address] [address] Johnny Davis MD Labs Only 06/27/2024 [facility] [place] [address] Johnny Davis MD Allergies 06/27/2024 Refill [facility] [address] [place] [address] Johnny Davis MD from Last 3 Months Immunizations Immunization Administration Dates Next Due ([facility])(12 YR UP) COVID-19 VACCINE - EMERGENCY USE AUTHORIZATION, MRNA, [id number](PF) 30 MCG/0.3 ML IM SUSP 11/03/2021 (PREVNAR 20)(6 WKS UP) PNEUM OCOCCAL CONJUGATE VACCINE 20-VALENT (PCV20), POLYSACCHARIDE EDU806 CONJUGATE, ADJUVANT 0.5 ML (PF) IM 03/15/2023 (TDVAX)(7 YRS UP) TETANUS AN D DIPHTHERIA TOXOIDS, ADSORBED (2 LF OF TETANUS TOXOID AND 2 LF OF DIPHTHERIA TOXOID), 0.5ML (PF), IM 02/25/2006 INFLUENZA VACCINE QUADRIVALENT RECOMB 18 YR UP P F IM 12/19/2019 Family History Medical History Relation Name Comments Asthma Brother 1 Scot Depression Brother 1 Scot Hypertension Brother 1 Scot Other Brother 1 Scot back/shoulder s urgeries and nerve problems/tremors Respiratory Disease Brother 1 Scot Heart Disease Brother 2 Lauri High Cholesterol Brother 2 Lauri Alzheimer's Disease Brother 3 Don Other Brother 3 Don Parkinson Parkinson's Disease Brother 3 Don Asthma Daughter x1 Heart Disease Father Nicoloff Heart Failure Father Nicoloff Cancer Maternal Grandmother Feigl COLON Colon Cancer Maternal Grandmother Feigl Diabetes Maternal Uncle Alzheimer's Disease Mother Colon Cancer Other Cullen Multiple Sclerosis Sister 1 Omayra Healthy Sister 2 Gayatri Thyroid Disease Sister 2 Gayatri Healthy Sister 3 Shaunna Other Sister 4 Lora Diverticulitis Healthy Sister 5 Corina Healthy Son x2 Bronchitis Neg Hx Celiac Disease Neg Hx Crohn's Disease Neg Hx Emphysema Neg Hx Lung Cancer Neg Hx Mesothelioma Neg Hx Tuberculosis Neg Hx Ulcerative Colitis Neg Hx Relation Name Status Comments Brother 1 Scot Alive Brother 2 Lauri Alive Brother 3 Don Alive Daughter x1 Alive Father Nicoloff Maternal Grandmother Feigl Maternal Uncle Mother Other ANAunt Sister 1 Omayra Alive Sister 2 Gayatri Alive Sister 3 Shaunna Alive Sister 4 Lora Alive Sister 5 Corina Alive Son x2 Alive Social History Tobacco Use Types Packs/Day Years Used Date Smoking Tobacco: Former Cigarettes 0.5 50.3 0 04/22/1972 - 01/14/2020 Smokeless Tobacco: Never Tobacco Cessation:Counseling Given: Not Answered Comments:started at 17, quit off/on for total yrs smoking:quit 6 months ago Alcohol Use Standard Drinks/Week Comments No 0 (1 standard drink = 0.6 oz pur e alcohol) Feeling Safe Answer Date Recorded Are you in a relationship wi th someone who hurts you emotionally and/or physically? 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 Gender Identity Not on file Sexual Orientation Not on file Occupation Industry Job Start Date Job End Date Not on file Not on file Not on file Not on file Last Filed Vital Signs Vital Sign Reading Time Taken Comments Blood Pressure 140/78 08/26/2024 3:34 PM CDT Pulse 71 08/26/2024 3:34 PM CDT Temperature 36.4 C (97.6 F) 08/26/2024 3:34 PM CDT Respiratory Rate 16 08/26/2024 3:34 PM CDT Oxygen Saturation 96% 08/26/2024 3:34 PM CDT Inhaled Oxygen Concentration - - Weight 72.1 kg (159 lb) 08/26/2024 3:34 PM CDT Height 167.6 cm (5' 6) 08/26/2024 3:34 PM CDT Body Mass Index 25.66 08/26/2024 3:34 PM CDT Plan of Treatment Upcoming Encounters Date Type Department Care Team (Late st Contact Info) Description 12/11/2024 10:30 AM QUALITY ASSURANCE SUPERVISOR Video Visit [facility] Internal Medicine [facility] [address] [place] [address] Laura Pritchard NP [address] [place] [address] 07/07/2025 11:00 AM CDT Office Visit [facility] Internal Medicine [facility] [address] [place] [address] Johnny Davis MD [address] [address] Health Maintenance Due Date Last Done Comments FIT-DNA Q 3 years 2001 FIT/FOBT Q 1 year 2001 Flex Sig/CT Colonography Q 5 years 2001 DTAP/TDAP/TD VACCINES (1 - Tdap) 02/26/2006 02/25/19 07 ZOSTER VACCINE (1 of 2) 2006 RSV VACCINE (60+ or ) (1 - Risk 60-74 years 1-dose series) 2016 OSTEOPOROSIS SCREENING 2021 COVID-19 Vaccine (2 - 2023-2 5 season) 2023 11/03/2021 Pre-Diabetes and Diabetes Screening 01/20/2024 01/19/2021, 10/03/2009 BREAST CANCER SCREENING 05/16/2024 05/17/2023, 05/16 Lung Cancer Screening 05/16/2024 05/17/2023 INFLUENZA VACCINE (#1) 2024 , 03/15/2023, 06/23/2021, Additional history exists COLORECTAL SCREENING 12/30/2025 12/30/2022, 12/30/2022, 06/09/2020, Additional history exists Colorectal Cancer Screening 12/30/2025 PNEUMOCOCCAL VACCINE 50+ YEARS Completed 03/15/2023 Medicare Advantage ([place]) Preventative Visit/Annual Wellness Visit Completed 07/03/2024, 03/15/2023, 01/20/2022, Additional history exists Medical Devices Implanted Type Area Carpet Finishing Supervisor Device Identifier Shelf Expiration Date Model / Serial / Lot Femoral Neck Plate 1hole Implanted:Qty: 1 on 02/27/2022 by Herman Curtis MD at [facility] Plate Right: Hip freee [facility] 04.168.00 0S / / [place] For Frmoral Neck System Implanted:Qty: 1 on 02/27/2022 by Herman Curtis MD at [facility] Right: Hip SYNTHES Pencil You In [facility] [id number] 10/07/2031 04.168.28 5S / / [id number] Description:All Synthes hip components are processed on requisition, [id number]. Antirotation Screw Implanted:Qty: 1 on 02/27/2022 by Herman Curtis MD at [facility] Right: Hip [employer] [facility] 09/06/2031 04.168.45 8S / / [id number] 5.0 Locking Screw Implanted:Qty: 1 on 02/27/2022 by Herman Curtis MD at [facility] Right: Hip [employer] [facility] 09/06/2031 [id number] / / [id number] Explanted Type Area Carpet Finishing Supervisor Device Identifier Shelf Expiration Date Model / Serial / Lot [place] For Femoral Neck System Explanted:Qty: 1 on 02/27/2022 at [facility] Right: Hip [employer] [facility] 08/06/2031 [id number] / / [id number] Procedures Procedure Name Priority Date/Time Associated Diagnosis Comments XR ANKLE 3+ VW LEFT Stat 08/20/2024 2:08 PM CDT XR CHEST PA OR AP 1 VW Stat 08/20/2024 2:07 PM CDT XR KNEE 3 VW LEFT Stat 08/20/2024 2:03 PM CDT XR HIP 2 OR 3 VIEWS LT Stat 08/20/2024 2:01 PM CDT TROPONIN 2 HR, 5TH GEN Timed Study 08/20/2024 1:[address] HEAD WO CONTRAST Stat 08/20/2024 12:01 PM CDT DIFFERENTIAL, MANUAL Stat 08/20/2024 11:04 AM CDT TSH Stat 08/20/2024 11:04 AM CDT MAGNESIUM LEVEL Stat 08/20/2024 11:04 AM CDT TROPONIN BASELINE, 5TH GEN Stat 08/20/2024 11:04 AM CDT COMPREHENSIVE METABOLIC PANEL Stat 08/20/2024 11:04 AM CDT CBC WITH DIFFERENTIAL Stat 08/20/2024 11:04 AM CDT EKG 12-LEAD Stat 08/20/2024 10:36 AM CDT MISCELLANEOUS LAB TEST Routine 07/23/2024 1:07 PM CDT COMPREHENSIVE METABOLIC PANEL Routine 07/22/2024 9:00 AM CDT Iron deficiency anemia, unspecified iron deficiency anemia type CBC WITH DIFFERENTIAL Routine 07/22/2024 8:57 AM CDT Iron deficiency anemia due to chronic blood loss LIPID PANEL Routine 07/02/2024 9:07 AM CDT Pure hypercholesterolemia VITAMIN D 25 HYDROXY Routine 07/02/2024 9:07 AM CDT Vitamin D deficiency CBC WITH DIFFERENTIAL Routine 07/02/2024 9:07 AM CDT Anemia due to GI blood loss IRON, TIBC, AND PERCENT SATURATION Routine 07/02/2024 9:07 AM CDT Anemia due to GI blood loss CT LUNG SCREENING (LDCT BASELINE OR ANNUAL) Routine 05/17/2023 9:10 AM CDT Tobacco use Personal history of nicotine dependence MAMMO 3D JOHNY SCREEN BILAT W OR WO CAD Routine 05/17/2023 8:38 AM CDT Breast cancer screening by mammogram COLONOSCOPY REPORT 12/30/2022 9:56 AM QUALITY ASSURANCE SUPERVISOR HEMOGLOBIN A1C Routine 01/19/2021 4:09 AM QUALITY ASSURANCE SUPERVISOR from Last 3 Months or Most Recently Relevant to Health Maintenance Results * XR ANKLE 3+ VW LEFT (08/20/2024 2:08 PM CDT) Anatomical Region Laterality Modality Ankle / Foot Computed Radiogr aphy 08/20/2024 2:08 PM CDT Impressions 08/20/2024 2:40 PM CDT IMPRESSION: No acute bony abnormality seen. DICTATION LOCATION: Location 1 - [facility] 08/20/2024 2:40 PM CDT XR ANKLE 3+ VW LEFT DATE: 08/20/2024 2:08 PM HISTORY: Pain. Syncope and collapse; Orthostatic dizziness; Anemia, unspecified type; Acute pain of left knee COMPARISON: None TECHNIQUE: AP, oblique and lateral views of the ankle were obtained. FINDINGS: There is no sign of fracture, displacement, bone erosion or periosteal reaction. The ankle joint is unremarkable. Procedure Note Charlie Robertson MD - 08/20/2024 XR ANKLE 3+ VW LEFT DATE: 08/20/2024 2:08 PM HISTORY: Pain. Syncope and collapse; Orthostatic dizziness; Anemia, unspecified type; Acute pain of left knee COMPARISON: None TECHNIQUE: AP, oblique and lateral views of the ankle were obtained. FINDINGS: There is no sign of fracture, displacement, bone erosion or periosteal reaction. The ankle joint is unremarkable. IMPRESSION: No acute bony abnormality seen. DICTATION LOCATION: [address] [place] Jeffery Don MD DIAGNOSTIC IMAGING ORDERABLES Final Result * XR CHEST PA OR AP 1 VW (08/20/2024 2:07 PM CDT) Anatomical Region Laterality Modality Chest Computed Radiogr aphy 08/20/2024 2:07 PM CDT Impressions 08/20/2024 2:35 PM CDT IMPRESSION: No active pulmonary disease. DICTATION LOCATION: [address] Narrative 08/20/2024 2:35 PM CDT XR CHEST PA OR AP 1 VW DATE: 08/20/2024 2:07 PM HISTORY: Shortness of Breath SOB. Syncope and collapse; Orthostatic dizziness; Anemia, unspecified type; Acute pain of left knee COMPARISON: December 28, 2022 FINDINGS: Heart is normal in size. There are calcifications of thoracic aorta. Mediastinum is otherwise unremarkable. Linear atelectasis in the lung bases unchanged. The lungs are otherwise with no pneumothorax, focal elevation, or pleural effusion. Electronic device is no longer overlies left chest. Procedure Note Charlie Robertson MD - 08/20/2024 XR CHEST PA OR AP 1 VW DATE: 08/20/2024 2:07 PM HISTORY: Shortness of Breath SOB. Syncope and collapse; Orthostatic dizziness; Anemia, unspecified type; Acute pain of left knee COMPARISON: December 28, 2022 FINDINGS: Heart is normal in size. There are calcifications of thoracic aorta. Mediastinum is otherwise unremarkable. Linear atelectasis in the lung bases unchanged. The lungs are otherwise with no pneumothorax, focal elevation, or pleural effusion. Electronic device is no longer overlies left chest. IMPRESSION: No active pulmonary disease. DICTATION LOCATION: [address] [place] Jeffery Don MD DIAGNOSTIC IMAGING ORDERABLES Final Result * XR KNEE 3 VW LEFT (08/20/2024 2:03 PM CDT) Anatomical Region Laterality Modality Lower Extremity Computed Radiogr aphy 08/20/2024 2:04 PM CDT Impressions 08/20/2024 2:19 PM CDT IMPRESSION: Mild osteoarthritis. No distinct fracture identified. DICTATION LOCATION: [address] Narrative 08/20/2024 2:19 PM CDT EXAMINATION: LEFT KNEE, THREE VIEWS. DATE: 08/20/2024 2:03 PM HISTORY: Pain. COMPARISON: April 12, 2010 FINDINGS: Left knee examination demonstrates mild joint space narrowing within the medial compartment and tibial spine spur. There is no evidence of fracture, dislocation, or subluxation. INCIDENTAL FINDINGS: None. Procedure Note Wilmer Hunag MD - 08/20/2024 EXAMINATION: LEFT KNEE, THREE VIEWS. DATE: 08/20/2024 2:03 PM HISTORY: Pain. COMPARISON: April 12, 2010 FINDINGS: Left knee examination demonstrates mild joint space narrowing within the medial compartment and tibial spine spur. There is no evidence of fracture, dislocation, or subluxation. INCIDENTAL FINDINGS: None. IMPRESSION: Mild osteoarthritis. No distinct fracture identified. DICTATION LOCATION: Location [address] [place] [address] Mata Navarro MD DIAGNOSTIC IMAGING ORDERABLES Final Result * XR HIP 2 OR 3 VIEWS LT (08/20/2024 2:01 PM CDT) Anatomical Region Laterality Modality Lower Extremity Left Computed Radiogr aphy 08/20/2024 2:01 PM CDT Impressions 08/20/2024 2:14 PM CDT IMPRESSION: No evidence of fracture or joint space abnormality, left hip. DICTATION LOCATION: [address] Narrative 08/20/2024 2:14 PM CDT EXAMINATION: LEFT HIP, THREE VIEWS. DATE: 08/20/2024 2:01 PM HISTORY: Pain. COMPARISON: None FINDINGS: Left hip examination fails to demonstrate evidence of fracture, dislocation or subluxation. Left hip joint spaces unremarkable. Internal surgical fixation is present within the right hip. INCIDENTAL FINDINGS: None. Procedure Note Wilmer Huang MD - 08/20/2024 EXAMINATION: LEFT HIP, THREE VIEWS. DATE: 08/20/2024 2:01 PM HISTORY: Pain. COMPARISON: None FINDINGS: Left hip examination fails to demonstrate evidence of fracture, dislocation or subluxation. Left hip joint spaces unremarkable. Internal surgical fixation is present within the right hip. INCIDENTAL FINDINGS: None. IMPRESSION: No evidence of fracture or joint space abnormality, left hip. DICTATION LOCATION: Location [address] [facility] us Mata Navarro MD DIAGNOSTIC IMAGING ORDERABLES Final Result * TROPONIN 2 HR, 5TH GEN (08/20/2024 1:40 PM CDT) TROPONIN T, 2 HR 5TH GEN <6 <=10 ng/L 08/20/2024 2:17 PM CDT [facility] [employer] [facility] Blood Venipuncture / Unknown 08/20/2024 1:40 PM CDT 08/20/2024 1:44 PM CDT Narrative [facility] - 08/20/2024 2:17 PM CDT Troponin Undetectable Delay in collection of timed specimen beyond recommended collection interval. Results must be interpreted in clinical context. Unable to calculate delta. us Mata Navarro MD CHEMISTRY ORDERABLES Final Re sult [facility]# [id number] 5 [facility] [place] [address] * CT HEAD WO CONTRAST (08/20/2024 12:01 PM CDT) Anatomical Region Laterality Modality Head Computed Tomogra phy 08/20/2024 11:5 7 AM CDT Impressions 08/20/2024 12:09 PM CDT IMPRESSION: 1. No acute intracranial hemorrhage. 2. Moderate volume loss and mild chronic small vessel disease. The examination was performed with the adjustment of mA according to the patient size and/or the use of Iterative Reconstruction Technique. DICTATION LOCATION: Location 9 [facility] Narrative 08/20/2024 12:09 PM CDT EXAM: CT HEAD WO CONTRAST DATE: 08/20/2024 12:01 PM CLINICAL INDICATION: trauma, syncope TECHNIQUE: Multiple contiguous axial CT images were obtained from the base of the skull to the vertex without administration of intravenous contrast material. Coronal and sagittal reconstructions are performed on the axial source data. IV CONTRAST: None COMPARISON: February 26, 2022 FINDINGS: There is prominence of the ventricles and subarachnoid spaces consistent with moderate volume loss. Low-attenuation areas are identified throughout the hemispheric white matter consistent with mild nonspecific white matter disease. No acute intracranial hemorrhage or extra-axial fluid collection is identified. The valle-white matter interface is grossly maintained. There is no midline shift or mass effect. The basal cisterns are patent. No displaced calvarial fracture is identified. The visualized portions of the globes and orbits appear normal. The visualized paranasal sinuses are clear. The visualized mastoid air cells are clear. Vascular calcifications are identified in the bilateral distal carotid arteries. INCIDENTAL FINDINGS: Scattered dental caries. Correlation with dental evaluation recommended. Procedure Note Dalton Man MD - 08/20/2024 EXAM: CT HEAD WO CONTRAST DATE: 08/20/2024 12:01 PM CLINICAL INDICATION: trauma, syncope TECHNIQUE: Multiple contiguous axial CT images were obtained from the base of the skull to the vertex without administration of intravenous contrast material. Coronal and sagittal reconstructions are performed on the axial source data. IV CONTRAST: None COMPARISON: February 26, 2022 FINDINGS: There is prominence of the ventricles and subarachnoid spaces consistent with moderate volume loss. Low-attenuation areas are identified throughout the hemispheric white matter consistent with mild nonspecific white matter disease. No acute intracranial hemorrhage or extra-axial fluid collection is identified. The valle-white matter interface is grossly maintained. There is no midline shift or mass effect. The basal cisterns are patent. No displaced calvarial fracture is identified. The visualized portions of the globes and orbits appear normal. The visualized paranasal sinuses are clear. The visualized mastoid air cells are clear. Vascular calcifications are identified in the bilateral distal carotid arteries. INCIDENTAL FINDINGS: Scattered dental caries. Correlation with dental evaluation recommended. IMPRESSION: 1. No acute intracranial hemorrhage. 2. Moderate volume loss and mild chronic small vessel disease. The examination was performed with the adjustment of mA according to the patient size and/or the use of Iterative Reconstruction Technique. DICTATION LOCATION: [address] us Mata Navarro MD CT ORDERABLES Final Result * TROPONIN BASELINE, 5TH GEN (08/20/2024 11:04 AM CDT) Pathologist [facility] TROPONIN T, BASELINE 5TH GEN <6 <=10 ng/L 08/20/2024 1:02 PM CDT [facility] Blood Venipuncture / Unknown 08/20/2024 11:04 AM CDT 08/20/2024 11:04 AM CDT Narrative [facility] - 08/20/2024 1:02 PM CDT Troponin Undetectable Mata Navarro MD CHEMISTRY ORDERABLES Final Re sult [facility]# [id number] [address] [facility] [place] [address] * MANUAL DIFFERENTIAL (08/20/2024 11:04 AM CDT) [facility] PLATELET EST. Consistent w Count 08/20/2024 11:46 AM CDT [facility] ANISOCYTOSIS 2+ /hpf 08/20/2024 11:46 AM CDT [facility] - . [facility] POIKILOCYTES 1+ /hpf 08/20/2024 11:46 AM CDT [facility] - . [facility] MICROCYTES 2+ /hpf 08/20/2024 11:46 AM CDT [facility] - . [facility] POLYCHROMASIA 1+ /hpf 08/20/2024 11:46 AM CDT [facility] - . [facility] HYPOCHROMIA 1+ /hpf 08/20/2024 11:46 AM CDT [facility] - . [facility] OVALOCYTES 1+ /hpf 08/20/2024 11:46 AM CDT [facility] Blood Venipuncture / Unknown 08/20/2024 11:04 AM CDT 08/20/2024 11:04 AM CDT us Mata Navarro MD HEMATOLOGY ORDERABLES COM Fin al Result [facility] CLIA# [id number] [address] [place] [address] * (ABNORMAL) CBC WITH DIFFERENTIAL (08/20/2024 11:04 AM CDT) Only the most recent of3 resultswithin the time period is included. WBC 9.6 4.0 - 9.8 K/uL 08/20/2024 11:20 AM CDT [facility] RBC 4.09 3.90 - 4.90 M/uL 08/20/2024 11:20 AM CDT [facility] HEMOGLOBIN 8.1(L) 11.8 - 14.8 g/dL 08/20/2024 11:20 AM CDT [facility] HEMATOCRIT 29.2(L) 35.5 - 44.0 % 08/20/2024 11:20 AM CDT [facility] MCV 71.4(L) 82.0 - 99.0 fL 08/20/2024 11:20 AM CDT [facility] MCH 19.8(L) 27.2 - 32.6 pg 08/20/2024 11:20 AM CDT [facility] MCHC 27.7(L) 31.5 - 35.5 g/dL 08/20/2024 11:20 AM CDT [facility] RDW 31.5(H) 11.5 - 14.5 % 08/20/2024 11:20 AM CDT [facility] RDW-STDEV 46.3 37.1 - 48.7 fL 08/20/2024 11:20 AM CDT [facility] PLATELETS 350 140 - 350 K/uL 08/20/2024 11:20 AM CDT [facility] MPV 9.3 9.3 - 12.4 fL 08/20/2024 11:20 AM CDT [facility] - . [facility] NEUTROPHILS 86 % 08/20/2024 11:20 AM CDT [facility] LYMPHOCYTES 8 % 08/20/2024 11:20 AM T [facility] MONOCYTES 5 % 08/20/2024 11:20 AM T [facility] EOSINOPHILS 0 % 08/20/2024 11:20 AM T [facility] - . [facility] BASOPHILS 0 % 08/20/2024 11:20 AM T [facility] IMMATURE GRANULOCYTES 1 % 08/20/2024 11:20 AM T [facility] Comment:IG (Immature Granulo cyte) count includes Metamyelocytes, Myelocytes, and Promyelocytes NEUTROPHIL ABSOLUTE 8.27(H) 1.90 - 7.00 K/uL 08/20/2024 11:20 AM CDT [facility] LYMPHOCYTE ABSOLUTE 0.77 0.70 - 4.50 K/uL 08/20/2024 11:20 AM T [facility] MONOCYTE ABSOLUTE 0.47 0.10 - 1.30 K/uL 08/20/2024 11:20 AM T [facility] EOSINOPHIL ABSOLUTE 0.02 0.00 - 0.70 K/uL 08/20/2024 11:20 AM T [facility] - . [facility] BASOPHILS ABSOLUTE 0.03 0.00 - 0.20 K/uL 08/20/2024 11:20 AM T [facility] IMMATURE GRANULOCYTES ABSOLUTE 0.06(H) 0.00 - 0.03 K/uL 08/20/2024 11:20 AM T [facility] Blood Venipuncture / Unknown 08/20/2024 11:04 AM CDT 08/20/2024 11:04 AM CDT us Mata Navarro MD HEMATOLOGY ORDERABLES Final R esult [facility] CLIA# [id number] 5 [facility] [place] [address] * TSH (08/20/2024 11:04 AM CDT) Pathologist [facility] TSH 0.49 0.27 - 4.20 uIU/mL 08/20/2024 1:02 PM CDT [facility] Blood Venipuncture / Unknown 08/20/2024 11:04 AM CDT 08/20/2024 11:04 AM CDT Mata Navarro MD CHEMISTRY ORDERABLES Final Re sult Performing Organization Address [facility] Co de Phone Number [facility]# [id number] [address] [address] * MAGNESIUM LEVEL (08/20/2024 11:04 AM CDT) [facility] MAGNESIUM 2.2 1.6 - 2.4 mg/dL 08/20/2024 1:02 PM CDT [facility] Blood Venipuncture / Unknown 08/20/2024 11:04 AM CDT 08/20/2024 11:04 AM CDT Mata Navarro MD CHEMISTRY ORDERABLES Final Re sult Performing Organization Address [facility] de Phone Number [facility]# [id number] [address] [place] [address] * (ABNORMAL) COMPREHENSIVE METABOLIC PANEL (08/20/2024 11:04 AM CDT) Only the most recent of2 resultswithin the time period is included. Pathologist [facility] SODIUM 139 136 - 145 mmol/L 08/20/2024 11:31 AM CDT [facility] POTASSIUM 4.1 3.5 - 5.0 mmol/L 08/20/2024 11:31 AM CDT [facility] CHLORIDE 104 98 - 107 mmol/L 08/20/2024 11:31 AM CDT [facility] SERVICES [facility] CO2 25 22 - 29 mmol/L 08/20/2024 11:31 AM [facility] CALCIUM 9.2 8.6 - 10.2 mg/dL 08/20/2024 11:31 AM [facility] BUN 14 8 - 23 mg/dL 08/20/2024 11:31 AM [facility] CREATININE 0.80 0.51 - 0.95 mg/dL 08/20/2024 11:31 AM [facility] GLUCOSE 108(H) 74 - 99 mg/dL 08/20/2024 11:31 AM [facility] TOTAL PROTEIN 6.6(L) 6.7 - 8.6 g/dL 08/20/2024 11:31 AM [facility] ALBUMIN 3.9 3.5 - 5.2 g/dL 08/20/2024 11:31 AM [facility] BILIRUBIN TOTAL 0.2 0.0 - 1.1 mg/dL 08/20/2024 11:31 AM [facility] ALKALINE PHOSPHATASE 87 35 - 104 U/L 08/20/2024 11:31 AM [facility] AST 16 <33 U/L 08/20/2024 11:31 AM [facility] ALT 14 <34 U/L 08/20/2024 11:31 AM [facility] GFR >60 >=60 mL/min/1.7 3 sq meter 08/20/2024 11:31 AM [facility] Comment:eGFR calculated with 2020 CKD-EPI equation. Vegetarian diet, extremely high or low muscle mass, and may affect results. Cystatin C with Glomerular Filtration Rate is a suitable alternative for these patients. ANION GAP 10 8 - 16 mmol/L 08/20/2024 11:31 AM [facility] [employer] [facility] Blood Venipuncture / Unknown 08/20/2024 11:04 AM CDT 08/20/2024 11:04 AM [facility] LABORATORY [facility] - 08/20/2024 11:31 AM CDT Samples containing indocyanine green cause interferences on Total and/or Direct Bilirubin and must not be measured. 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1955 Requested By: Order Number: [id number] Benjie WILD: Murray Lara Measurements Intervals [place] Rate: 81 P: 81 RI: 196 QRS: 61 QRSD: 94 T: 70 QT: 411 QTc: 477 Interpretive Statements Sinus rhythm Probable left atrial enlargement RSR' in V1 or V2, probably normal variant Electronically Signed On 08-20-2024 18:34:18 CDT by Murray Lara Procedure Note Murray Lara MD - 08/20/2024 [facility] [address] [place] [address] Test Date: 2024-08-20 Pat Name: DIANA CARRION Department: 38 Room: 10 Gender: Female [employer]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1955 Requested By: Order Number: [id number] Benjie WILD: Murray Lara Measurements Intervals [place] Rate: 81 P: 81 RI: 196 QRS: 61 QRSD: 94 T: 70 QT: 411 QTc: 477 Interpretive Statements Sinus rhythm Probable left atrial enlargement RSR' in V1 or V2, probably normal variant Electronically Signed On 08-20-2024 18:34:18 CDT by Murray Lara us Mata Navarro MD ECG ORDERABLES Final Result INTERFACE SYSTEM Refer to clinic/hospital department * MISCELLANEOUS LAB TEST (07/23/2024 1:07 PM CDT) us Abstract Provider CHEMISTRY ORDERABLES Final Res ult Performing Organization Address City/[facility]/ZIP Co de Phone Number [facility], JOHNNY DAVIS MD [place]# [id number] [address] [facility] [address] [address] * (ABNORMAL) IRON, TIBC, AND PERCENT SATURATION (07/02/2024 9:07 AM CDT) IRON <10(L) 45 - 160 mcg/dL [facility] Comment: Verified by repeat analysis. TIBC 458(H) 250 - 450 mcg/dL (calc) [facility] IRON % SATURATION 1.09(L) 16 - 45 % (calc) [facility] Comment: FASTING:YES FASTING: YES Test Performed at: [employer] [id number] [id number] Linda Ruiz MD Blood 07/02/2024 9:07 AM CDT 07/02/2024 9:07 AM CDT us Aleah Laird MARKETING DIRECTOR ASSISTED LIVING CHEMISTRY ORDERABLES F inal Result Performing Organization Address [facility] Co de Phone Number [facility] [phone] [facility] [employer] [address] [address] [address] * (ABNORMAL) VITAMIN D 25 HYDROXY (07/02/2024 9:07 AM CDT) VITAMIN D, 25 OH, TOTAL 24(L) 30 - 100 ng/mL [email or web address] Comment: Vitamin D Status 25-OH Vitamin D: Deficiency: <20 ng/mL Insufficiency: 20 - 29 ng/mL Optimal: > or = 30 ng/mL For 25-OH Vitamin D testing on patients on D2-supplementation and patients for whom quantitation of D2 and D3 fractions is required, the Quest[facility]ure[facility](TM) 25-OH VIT D, (D2,D3), LC/MS/MS is recommended: order code 53859 (patients >2yrs). See Note 1 Note 1 For additional information, please refer to http://Desura.3Guppies/faq/BXJ831 (This link is being provided for informational/ educational purposes only.) FASTING:YES FASTING: YES Test Performed at: [employer] [address] [place] [address] Linda Ruiz MD Blood 07/02/2024 9:07 AM CDT 07/02/2024 9:07 AM CDT us Aleah Laird MARKETING DIRECTOR ASSISTED LIVING CHEMISTRY ORDERABLES F inal Result [facility] [phone] [employer] [address] * LIPID PANEL (07/02/2024 9:07 AM CDT) CHOLESTEROL 164 <200 mg/dL [facility] HDL 58 > OR = 50 mg/dL [facility] TRIGLYCERIDE 103 <150 mg/dL [facility] LDL CALCULATED 86 mg/dL (calc) [employer] [facility] Comment: Reference range: <100 Desirable range <100 mg/dL for primary prevention; <70 mg/dL for patients with CHD or diabetic patients with > or = 2 CHD risk factors. LDL-C is now calculated using the Prosper-Kayla calculation, which is a validated novel method providing better accuracy than the Friedewald equation in the estimation of LDL-C. Prosper SS et al. JUAN. 2013;310(19): 5546-2687 (http://education.Invuity.Adduplex/faq/FFK293) CHOL/HDL RATIO 2.8 <5.0 (calc) [email or web address] NON-HDL CHOLESTEROL 106 <130 mg/dL (calc) [facility] Comment: For patients with diabetes plus 1 major ASCVD risk factor, treating to a non-HDL-C goal of <100 mg/dL (LDL-C of <70 mg/dL) is considered a therapeutic option. Test Performed at: [facility] [address] [facility] [place] [address] Linda Ruiz MD Blood 07/02/2024 9:07 AM CDT 07/02/2024 9:07 AM CDT us Aleah Laird NP CHEMISTRY ORDERABLES F inal Result [facility] [phone] [facility] [place] [id number] [facility] [place] [address] * CT LUNG SCREENING (LDCT BASELINE OR ANNUAL) (05/17/2023 9:10 AM CDT) Anatomical Region Laterality Modality Chest Computed Tomogra phy 05/17/2023 9:59 AM CDT Impressions 05/18/2023 10:48 AM CDT IMPRESSION: 1. Noncalcified pulmonary nodules as described. 2. Emphysema. 3. Severe coronary artery calcification with possible coronary stent. Lung RADS: Category 2S (Benign) RECOMMENDATIONS: 1. Recommend continued annual low-dose screening lung CT. Total Exam DLP: 55 mGy-cm DICTATION LOCATION: [address] Narrative 05/18/2023 10:[address] LUNG SCREENING (LDCT BASELINE OR ANNUAL) DATE: 05/17/2023 9:10 AM HISTORY: Lung cancer screening. Nicotine dependence. COMPARISON: 01/18/2021. TECHNIQUE: Contiguous axial CT images were obtained of the chest without contrast utilizing a low dose CT protocol. Images were reconstructed in the coronal plane. Additional axial and coronal MIP images were also obtained. The examination was performed with the adjustment of mA according to the patient size and/or the use of Iterative Reconstruction Technique. LIMITATIONS: Low dose, non-contrast technique limits evaluation of the solid viscera and mediastinum. FINDINGS: Lung Nodules: 1. A 3 mm noncalcified perifissural right upper lobe nodule image #171 of series #2, unchanged. 2. A 3 mm left lower lobe nodule image #297 which was likely obscured by atelectasis on the prior exam and is not definitely visualized on the prior study. Additional Findings: Minimal left basilar atelectasis. No pleural effusion. Emphysema. No significant mediastinal adenopathy. Small hiatal hernia. Heart size is normal. Severe coronary artery calcification with possible underlying coronary stent. Visualized upper abdomen demonstrates cholecystectomy. A 13 mm left renal hypodensity which is most likely a cyst and is unchanged. No pathological osseous lesion. us Johnny Davis MD CT ORDERABLES Final Resul t * MAMMO 3D JOHNY SCREEN BILAT W OR WO CAD (05/17/2023 8:38 AM CDT) Anatomical Region Laterality Modality Breast Bilateral Mammography 05/17/2023 8:38 AM CDT Impressions 05/18/2023 8:37 AM CDT IMPRESSION: 1. No concerning findings. OVERALL FINAL ASSESSMENT: BI-RADS CATEGORY 1 - Negative. RECOMMENDATIONS: 1. Recommend annual mammography. 2. The patient may benefit from annual screening breast ultrasound given the density of the breast tissue. Narrative 05/18/2023 8:37 AM CDT BILATERAL SCREENING DIGITAL MAMMOGRAM WITH 3D TOMOSYNTHESIS AND CAD DATE: 05/17/2023 8:38 AM DICTATION LOCATION: [facility] HISTORY: Routine yearly screening exam. TECHNIQUE: Low-dose full-field digital breast tomosynthesis examination was performed of both breasts with 2D and 3D acquisitions. CAD was utilized. COMPARISON: None, baseline. BREAST COMPOSITION: The breasts are heterogeneously dense, which may obscure small masses. FINDINGS: No concerning dominant masses, suspicious calcifications, parenchymal asymmetries or areas of architectural distortion are identified in either breast. Procedure Note Sumanth Cook MD - 05/18/2023 BILATERAL SCREENING DIGITAL MAMMOGRAM WITH 3D TOMOSYNTHESIS AND CAD DATE: 05/17/2023 8:38 AM DICTATION LOCATION: [facility] HISTORY: Routine yearly screening exam. TECHNIQUE: Low-dose full-field digital breast tomosynthesis examination was performed of both breasts with 2D and 3D acquisitions. CAD was utilized. COMPARISON: None, baseline. BREAST COMPOSITION: The breasts are heterogeneously dense, which may obscure small masses. FINDINGS: No concerning dominant masses, suspicious calcifications, parenchymal asymmetries or areas of architectural distortion are identified in either breast. IMPRESSION: 1. No concerning findings. OVERALL FINAL ASSESSMENT: BI-RADS CATEGORY 1 - Negative. RECOMMENDATIONS: 1. Recommend annual mammography. 2. The patient may benefit from annual screening breast ultrasound given the density of the breast tissue. us Johnny Davis MD MAMMO ORDERABLES Final Resu lt * COLONOSCOPY REPORT (12/30/2022 9:56 AM QUALITY ASSURANCE SUPERVISOR) Narrative Procedure Note Maraynn Vuong MD - 12/30/2022 9:56 AM CST [facility] Endoscopy Patient Name: Diana Carrion Procedure Date: 12/30/2022 Date of : 1955 Attending MD: Maryann Vuong MD, Procedure: Colonoscopy Indications: Iron deficiency anemia Providers: Maryann Vuong MD Referring MD: Medicines: Monitored Anesthesia Care Complications: No immediate complications. Procedure: Informed consent was obtained for the procedure, including moderate sedation after risks were discussed. Based on the pre-procedure assessment, including review of the patient's medical history, medications, allergies, and review of systems, the patient was deemed to be an appropriate candidate for sedation. A timeout was performed. Continuous ECG monitoring, pulse oximetry, blood pressure monitoring, and direct observation were performed. The Colonoscope was introduced through the anus and advanced to the terminal ileum. The colonoscopy was performed without difficulty. The patient tolerated the procedure well. The quality of the bowel preparation was good. The terminal ileum, ileocecal valve, appendiceal orifice, and rectum were photographed. Estimated Blood Loss: Estimated blood loss was minimal. Estimated blood loss was minimal. Findings: The perianal and digital rectal examinations were normal. The colon (entire examined portion) appeared normal. The terminal ileum appeared normal. The exam was otherwise without abnormality on direct and retroflexion views. Impression: - The entire examined colon is normal. - The examined portion of the ileum was normal. - The examination was otherwise normal on direct and retroflexion views. - No specimens collected. Recommendation: - Patient has a contact number available for emergencies. The signs and symptoms of potential delayed complications were discussed with the patient. Return to normal activities tomorrow. Written discharge instructions were provided to the patient. - Resume previous diet. - Continue present medications. - Repeat colonoscopy in 10 years for screening purposes. Maryann Vuong MD 12/30/2022 9:56:05 AM This report has been signed electronically. Number of Addenda: [address]; [place] [address] Maryann Vuong MD GI PROCEDURE ORDERABLES F inal Result * HEMOGLOBIN A1C (01/19/2021 4:09 AM QUALITY ASSURANCE SUPERVISOR) HEMOGLOBIN A1C 4.9 <5.7 % 01/19/2021 4:52 AM QUALITY ASSURANCE SUPERVISOR [facility] EST. AVG GLUCOSE, A1C 94 mg/dL 01/19/2021 4:52 AM [facility] [employer] [facility] Blood Venipuncture / Unknown 01/19/2021 4:09 AM QUALITY ASSURANCE SUPERVISOR 01/19/2021 4:21 AM QUALITY ASSURANCE SUPERVISOR Narrative [facility] [employer] [facility] - 01/19/2021 4:52 AM QUALITY ASSURANCE SUPERVISOR HGB A1C INTERPRETATION NORMAL: <5.7% PRE-DIABETES: 5.7 - 6.4% DIABETES: 6.5% OR GREATER Ab Montiel NP CHEMISTRY ORDERABLES Final Result [facility] Contract [employer] [facility] CLIA# [id number] [address] [place] [address] from Last 3 Months or Most Recently Relevant to Health Maintenance Insurance [facility] [id number] [facility] RX [employer] Medicare Part D Advance Directives For more information, please contact: [phone] * Full Code (Latest Code Status on File) Date Activated Date Inactivated Comments 12/29/2022 8:19 AM 12/31/2022 12:41 PM * Full Code Date Activated Date Inactivated Comments 02/26/2022 6:21 PM 03/01/2022 6:27 PM * Full Code Date Activated Date Inactivated Comments 01/18/2021 11:47 PM 01/20/2021 4:51 PM * Full Code Date Activated Date Inactivated Comments 05/27/2020 10:58 PM 05/29/2020 8:10 PM * Full Code Date Activated Date Inactivated Comments 03/10/2017 10:20 PM 03/11/2017 7:21 PM Care Teams Spring Fitter Relationship Specialty Start Date End Date Johnny Davis MD [address] [place] [address] PCP - General Internal Medicine 12/12/12 Parminder Parry 01/26/16 [facility] 01/26/16 PROVIDER PLUS 10/25/18
--- OUTSIDE RECORDS SUMMARY | 2024-09-26 16:41 | XMS_ITS | Encounter Summary ---
Author Organization [facility] Address [address] [place] [address] Care Team Providers Care Bookmobile Driver Name Role Phone Johnny Davis MD Primary Care Provider Encounter Details Date Type Department Care Team (Late st Contact Info) Description 10/25/2006 Orders Only [facility] Internal Medicine Medical [place] [facility] 189 [address] [facility] [address] [place] [phone] Johnny Davis MD [address] [facility] [address] [place], [place] [id number] Social History Tobacco Use Types Packs/Day Years Used Date Smoking Tobacco: Never Assessed Comments Unknown Sex and Gender Information Value Date Recorded Sex Assigned at Not on file Legal Sex Female 4:28 AM ORDER MAKE UP CLERK Gender Identity Not on file Sexual Orientation Not on file documented as of this encounter Progress Notes * Johnny Davis MD - 06/22/2007 6:02 PM CDT WEIGHT: 179lbs BLOOD PRESSURE: 140/84 Left Arm Sitting TEMPERATURE: 97.6??f Oral PULSE: 72 Left Radial, Regular RESPIRATIONS: 12 NURSE NAME: Eda Isaac A ALLERGIES: Allergies were reviewed. TOBACCO USE Patient does not currently use tobacco. MEDICATIONS: RN/MA reviewed medications. CHIEF COMPLAINT [facility] HAD WERE CUT DOWN IN THE LAST 2 WEEKS. HAD WINDOWS OPEN WHEN WEATHER WAS COOL AND THERE WAS ALOT OF DUST IN THE HOUSE PRIOR TO SX'S. PT HAS CUT HER SMOKING DOWN BY 90%. HISTORY: HISTORY OF PRESENT ILLNESS: UPPER RESPIRATORY: Onset is gradual. The upper respiratory symptoms began approximately 2 weeks ago. Symptoms include a nonproductive cough, has symptoms of chest congestion, symptoms include fever,symptoms include headache, mild wheezing. CURRENT MEDICATION LIST: VICODIN ORAL TABLET 5-500 MG, 1 Three Times A Day, As Needed EPIPEN 2-TUYET INTRAMUSCULAR DEVICE 0.3 MG/0.3ML (1:1000), use for bee stings as directed FLONASE NASAL SUSPENSION 50 MCG/ACT, SPRAY TWICE IN EACH NOSTRIL DAILY NORTRIPTYLINE HCL ORAL CAPSULE CONVENTIONAL 50 MG, 1 Every Day At Bedtime SINGULAIR ORAL TABLET 10 MG, 1 Every Day ADVAIR DISKUS INHALATION MISCELLANEOUS 500-50 MCG/DOSE, 1 PUFF BID ALBUTEROL INHALATION AEROSOL SOLUTION 90 MCG/ACT, 2 puffs qid prn CITALOPRAM HYDROBROMIDE ORAL TABLET 40 MG, 1 Every Day CHANTIX STARTING MONTH TUYET ORAL MISCELLANEOUS 0.5 MG X 11 & 1 MG X 42, as directed CHANTIX CONTINUING MONTH TUYET ORAL TABLET 1 MG, as directed SOCIAL HISTORY: TOBACCO USE: Currently smokes less than 1/2 PPD. DISCUSSED SMOKIN. PHYSICAL EXAMINATION: CONSTITUTIONAL: GENERAL APPEARANCE: MODERATELY DISTRESSED. better after nebulizer. EARS, NOSE, MOUTH AND THROAT: EARS: Tympanic membranes shiny without retraction. Canals unremarkable. Hearing grossly normal. ORAL: Inspection of gums, lips, palate, and teeth normal. No scars, lesions, or masses. Oral mucosaunremarkable with non-inflamed posterior pharynx. NECK/THYROID: Trachea midline. No thyroid enlargement, tenderness, or mass. No supraclavicular or cervical adenopathy. RESPIRATORY: MODERATE EXPIRATORY WHEEZE HEARD THROUGHOUT BOTH LUNG GALDAMEZ. Was tight prior to nebulizer, more wheezing but more comfortable after treatment. LYMPHATICS: No lymphadenopathy in the neck, no supraclavicular lymphadenopathy noted. ASSESSMENT/PLAN: 493.92-ASTHMA UNS W AC EXACER ASSESSMENT: The asthma has worsened. The patient is instructed to use inhalers. Clinical guidelinesreviewed. MEDICATIONS: PREDNISONE ORAL TABLET 20 MG, 2 Every Day 7 days, 1 every day 7 days, 21 Dispensed, status: CONTINUED, 10/25/2006. LEVAQUIN ORAL TABLET 500 MG, 1 Every Day, 10 Dispensed, status: CONTINUED, 10/25/2006. 466.0-[facility]CH[facility]IS ACUTE LAB ORDERS: Order number: [id number] Test Ordered: NEBULIZER TREATMENT [id number] CLINICAL GUIDELINES: call if worsens, stop smoking!! RETURN VISIT : Patient instructed to return in 2 months. Electronically Signed by: Johnny Davis MD on Sunday, October 29, 2006 documented in this encounter Plan of Treatment Upcoming Encounters Date Type Department Care Team (Late st Contact Info) Description 12/11/2024 10:30 AM ORDER MAKE UP CLERK Video Visit [facility] Internal Medicine [facility] 189 [address] [facility] [address] [place] [address] Laura Pritchard, MARYJO [address] [place] [address] 07/07/2025 11:00 AM CDT Office Visit [facility] Internal [facility] [address] [address] Johnny Davis MD [address] [phone] documented as of this encounter Visit Diagnoses Not on filedocumented in this encounter Additional Health Concerns Infection Onset Date Last Indicated Resolved Time R/O COVID-19 09/26/2019 09/26/2019 09/26/2019 2:08 PM CDT R/O COVID-19 09/26/2019 09/26/2019 09/26/2019 3:24 PM CDT R/O COVID-19 09/26/2019 09/26/2019 09/28/2019 2:36 AM CDT documented as of this encounter Care Teams Bookmobile Driver Relationship Specialty Start Date End Date Johnny Davis MD [address] [address] PCP - General Internal Medicine 12/12/12 noe 01/26/16 01/26/16 Parminder Parry 01/26/16 [facility] 01/26/16 PROVIDER PLUS 10/25/18 documented as of this encounter
--- OUTSIDE RECORDS SUMMARY | 2024-09-26 16:41 | XMS_ITS | Encounter Summary ---
Author Organization [facility] Address [address] [place] [address] Care Team Providers Care Medical Record Consultant Name Role Phone Johnny Davis MD Primary Care Provider Encounter Details Date Type Department Care Team (Late st Contact Info) Description 11/07/2005 Orders Only [facility] Internal Medicine [place] [facility] 189 [address] [facility] [address] [place] [phone] Johnny Davis MD [address] [facility] [address] [place], [place] [phone] Social History Tobacco Use Types Packs/Day Years Used Date Smoking Tobacco: Never Assessed Comments Unknown Sex and Gender Information Value Date Recorded Sex Assigned at Not on file Legal Sex Female 4:28 AM SPRAY GUN REPAIRER HELPER Gender Identity Not on file Sexual Orientation Not on file documented as of this encounter Progress Notes * Johnny Davis MD - 11/20/2007 7:46 PM CDT BLOOD PRESSURE: 130/72 Left Arm Sitting PULSE: 74 Left Radial, Regular RESPIRATIONS: 12 WEIGHT: 161lbs NURSE NAME: Eda Isaac A ALLERGIES: Allergies were reviewed. MEDICATIONS: RN/MA reviewed medications. CHIEF COMPLAINT Here for follow up evaluation.fibromyalgia is worse.pain constantly all over body. HISTORY: HISTORY: 729.1-FIBROMYALGIA The patient's myalgia has worsened. No complications noted from the medication presently being used. ROS: GENERAL: Normal activity and energy level, no change in appetite. No major weight gain or loss. No malaise, chills, fever, diaphoresis. sleeping well with CPAP but tired in the am again. ENDOCRINE: HAS HOT FLASHES, SWEATS EXCESSIVELY. CARDIAC: No chest pain, palpitations, orthopnea, dyspnea on exertion, or paroxysmal nocturnal dyspnea. RESPIRATORY: No dyspnea, cough, hemoptysis or wheezing. NEUROLOGIC: No headaches, no tingling noted, no numbness. SOCIAL HISTORY: TOBACCO USE: Currently smokes 1 PPD. 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 RESPIRATORY: Clear to auscultation and percussion. Normal respiratory effort. CARDIOVASCULAR: CARDIAC: Regular rhythm. No murmurs, rubs, or gallops. LYMPHATICS: No lymphadenopathy in the neck, no supraclavicular lymphadenopathy noted. GASTROINTESTINAL: ABDOMEN: Soft, non-tender, without masses. Bowel sounds active. LIVER/SPLEEN/KIDNEY: No hepatosplenomegaly, tenderness or nodularity. Kidneys not palpable. MUSCULOSKELETAL EXAM: HEAD AND NECK: TRAPEZIUS TENDERNESS PRESENT, MOVEMENT MILDLY RESTRICTED IN ALL DIRECTIONS. EXTREMITIES: PE/MS/BILAT UPPER EXT all muscles tender all the way to the finger tips. BILATERAL LOWER EXTREMITIES: all muscles tender to palpate. ASSESSMENT/PLAN: 729.1-FIBROMYALGIA ASSESSMENT: no clear exacerbating cause, will rx and see if gets better MEDICATIONS: VICODIN ORAL TABLET 5-500 MG, 1 Three Times A Day, As Needed, 60 Dispensed, 5 Fills, 90 Duration/Days Supply, status: CONTINUED, 11/07/2005. FLEXERIL ORAL TABLET 10 MG, 1 Every Day At Bedtime, 30 Dispensed, 2 Fills, status: NEW PRESCRIPTION, 11/07/2005, Comment: for muscle spasm. CLINICAL GUIDELINES: sleep, exercise. RETURN VISIT : Patient instructed to call in 2 weeks if not improving. Electronically Signed by: oJhnny Davis MD on Monday, November 07, 2005 documented in this encounter Plan of Treatment Upcoming Encounters Date Type Department Care Team (Late st Contact Info) Description 12/11/2024 10:30 AM SPRAY GUN REPAIRER HELPER Video Visit [facility] Internal Medicine Medical [facility] 189 [address] [facility] [address] [address] Laura Pritchard NP [address] [facility] [address] [place] [address] 07/07/2025 11:00 AM CDT Office Visit [facility] Internal Medicine [place] [facility] 189 [address] [facility] [address] [place] [phone] Johnny Davis MD [address] [facility] [address] [place] [address] documented as of this encounter Visit Diagnoses Not on filedocumented in this encounter Additional Health Concerns Infection Onset Date Last Indicated Resolved Time R/O COVID-19 09/26/2019 09/26/2019 09/26/2019 2:08 PM CDT R/O COVID-19 09/26/2019 09/26/2019 09/26/2019 3:24 PM CDT R/O COVID-19 09/26/2019 09/26/2019 09/28/2019 2:36 AM CDT documented as of this encounter Care Teams Medical Record Consultant Relationship Specialty Start Date End Date Johnny Davis MD [address] [facility] [address] [place] [address] PCP - General Internal Medicine 12/12/12 noe 01/26/16 01/26/16 Parminder Parry 01/26/16 [facility] 01/26/16 PROVIDER PLUS 10/25/18 documented as of this encounter
--- OUTSIDE RECORDS SUMMARY | 2024-09-26 16:41 | XMS_ITS | Encounter Summary ---
Author Organization [facility] Address [address] [place] [address] Care Team Providers Care Coat Check Attendant Name Role Phone Johnny Davis MD Primary Care Provider Encounter Details Date Type Department Care Team (Late st Contact Info) Description 12/22/2005 Orders Only [facility] Internal Medicine [facility] 189 [address] [facility] [address] [place] [address] Johnny Davis MD [address] [facility] [address] [place] [address] Social History Tobacco Use Types Packs/Day Years Used Date Smoking Tobacco: Never Assessed Comments Unknown Sex and Gender Information Value Date Recorded Sex Assigned at Not on file Legal Sex Female 4:28 AM CYTOLOGY SUPERVISOR Gender Identity Not on file Sexual Orientation Not on file documented as of this encounter Plan of Treatment Upcoming Encounters Date Type Department Care Team (Late st Contact Info) Description 12/11/2024 10:30 AM CYTOLOGY SUPERVISOR Video Visit [facility] Internal Medicine [facility] [address] [facility] [address] [place] [address] Laura Pritchard, MARYJO [address] [place] [address] 07/07/2025 11:00 AM CDT Office Visit [facility] Internal Medicine [facility] 189 [address] [facility] [address] [place] [address] Johnny Davis MD [address] [phone] documented as of this encounter Visit Diagnoses Not on filedocumented in this encounter Additional Health Concerns Infection Onset Date Last Indicated Resolved Time R/O COVID-19 09/26/2019 09/26/2019 09/26/2019 2:08 PM CDT R/O COVID-19 09/26/2019 09/26/2019 09/26/2019 3:24 PM CDT R/O COVID-19 09/26/2019 09/26/2019 09/28/2019 2:36 AM CDT documented as of this encounter Care Teams Coat Check Attendant Relationship Specialty Start Date End Date Johnny Davis MD [address] [place] [address] PCP - General Internal Medicine 12/12/12 noe 01/26/16 01/26/16 Parminderoc Parry 01/26/16 [facility] 01/26/16 PROVIDER PLUS 10/25/18 documented as of this encounter
--- OUTSIDE RECORDS SUMMARY | 2024-09-26 16:41 | XMS_ITS | Encounter Summary ---
Author Organization [facility] Address [address] [place] [address] Care Team Providers Care Sand Control Worker Name Role Phone Johnny Davis MD Primary Care Provider Encounter Details Date Type Department Care Team (Late st Contact Info) Description 04/25/2007 Orders Only [facility] Internal Medicine [facility] [address] [place] [address] [address] [place] [address] Johnny Davis MD [facility] [address] [place] [address] Social History Tobacco Use Types Packs/Day Years Used Date Smoking Tobacco: Never Assessed Comments Unknown Sex and Gender Information Value Date Recorded Sex Assigned at Not on file Legal Sex Female 4:28 AM EXHIBITS CURATOR Gender Identity Not on file Sexual Orientation Not on file documented as of this encounter Progress Notes * Johnny Davis MD - 07/12/2007 7:05 PM CDT TIME:11:00 am PATIENT`S HOME PHONE: PATIENT`S WORK PHONE: PATIENT`S INSURANCE: [employer] P[employer] WHO TOOK THE CALL: Ifeanyi Alvarado J GENERAL INFORMATION WHO CALLED: Patient called. ALTERNATIVE PHONE NUMBER: [phone] CURRENT ALLERGY LIST: EGGS IODINE PENICILLIN [facility] [phone] SECTION 1: REQUESTED ACTION [email or web address] 04/25/07 at 11:00 am: MEDICATION REQUEST: MEDICATIONS: ADVAIR DISKUS INHALATION MISCELLANEOUS 500-50 MCG/DOSE, 1 PUFF BID, 3 Dispensed, 3 Fills, status: CONTINUED, 09/18/2006. ALBUTEROL INHALATION AEROSOL SOLUTION 90 MCG/ACT, 2 puffs qid prn, 3 Dispensed, 3 Fills, status: CONTINUED, 09/18/2006. SINGULAIR ORAL TABLET 10 MG, 1 Every Day, 90 Dispensed, 3 Fills, 90 Duration/Days Supply, status: CONTINUED, 09/18/2006. SECTION 2: DOCTOR`S RESPONSE: alli 04/25/07 at 02:49 pm MEDICATIONS: SINGULAIR ORAL TABLET 10 MG, 1 Every Day, 90 Dispensed, 3 Fills, 90 Duration/Days Supply, status: CONTINUED, 04/25/2007. ALBUTEROL INHALATION AEROSOL SOLUTION 90 MCG/ACT, 2 puffs qid prn, 3 Dispensed, 3 Fills, status: CONTINUED, 04/25/2007. ADVAIR DISKUS INHALATION MISCELLANEOUS 500-50 MCG/DOSE, 1 PUFF BID, 3 Dispensed, 3 Fills, status: CONTINUED, 04/25/2007. FINAL ACTION: [email or web address] 04/25/07 at 04:27 pm Spoke with patient 04/25/07 at 04:27 pm. Called pharmacy at 04/25/07 at 04:27 pm. documented in this encounter Plan of Treatment Upcoming Encounters Date Type Department Care Team (Late st Contact Info) Description 12/11/2024 10:30 AM EXHIBITS CURATOR Video Visit [facility] Internal Medicine [place] [address] [address] [facility] [place] [address] Laura Pritchard NP [address] [address] 07/07/2025 11:00 AM CDT Office Visit [facility] Internal Medicine [facility] 189 [address] [place] [address] Johnny Davis MD [address] [facility] [address] [place] [address] documented as of this encounter Visit Diagnoses Not on filedocumented in this encounter Additional Health Concerns Infection Onset Date Last Indicated Resolved Time R/O COVID-19 09/26/2019 09/26/2019 09/26/2019 2:08 PM CDT R/O COVID-19 09/26/2019 09/26/2019 09/26/2019 3:24 PM CDT R/O COVID-19 09/26/2019 09/26/2019 09/28/2019 2:36 AM CDT documented as of this encounter Care Teams Sand Control Worker Relationship Specialty Start Date End Date Johnny Davis MD [address] [place] [address] PCP - General Internal Medicine 12/12/12 noe 01/26/16 01/26/16 Parminder Parry 01/26/16 [facility] 01/26/16 PROVIDER PLUS 10/25/18 documented as of this encounter
--- OUTSIDE RECORDS SUMMARY | 2024-09-26 16:41 | XMS_ITS | Encounter Summary ---
Author Organization [facility] Address [address] [place] [address] Care Team Providers Care Film Processing Shift Supervisor Name Role Phone Johnny Davis MD Primary Care Provider Encounter Details Date Type Department Care Team (Latest Contact Info) Description 05/10/2008 Outpatient Historical [facility] Johnny Cullen MD [address] [address] Other and Unspecified Hyperlipidemia Social History Tobacco Use Types Packs/Day Years Used Date Smoking Tobacco: Every Day Cigarettes 1 30 Alcohol Use Standard Drinks/Week Comments No 0 (1 standard drink = 0.6 oz pur e alcohol) Comments No Sex and Gender Information Value Date Recorded Sex Assigned at Not on file Legal Sex Female 4:28 AM MANAGER SKILLED Gender Identity Not on file Sexual Orientation Not on file documented as of this encounter Plan of Treatment Upcoming Encounters Date Type Department Care Team (Late st Contact Info) Description 12/11/2024 10:30 AM MANAGER SKILLED Video Visit [facility] Internal Medicine [facility] 189 [address] [facility] [address] [place] [address] Laura Pritchard, MARYJO [address] [place] [address] 07/07/2025 11:00 AM CDT Office Visit [facility] Internal Medicine [facility] 189 [address] [place] [address] Johnny Davis MD [address] [address] documented as of this encounter Visit Diagnoses Diagnosis Other and unspecified hyperlipidemia documented in this encounter Additional Health Concerns Infection Onset Date Last Indicated Resolved Time R/O COVID-19 09/26/2019 09/26/2019 09/26/2019 2:08 PM CDT R/O COVID-19 09/26/2019 09/26/2019 09/26/2019 3:24 PM CDT R/O COVID-19 09/26/2019 09/26/2019 09/28/2019 2:36 AM CDT documented as of this encounter Care Teams Film Processing Shift Supervisor Relationship Specialty Start Date End Date Johnny Davis MD [address] [address] PCP - General Internal Medicine 12/12/12 noe 01/26/16 01/26/16 Parminderoc Parry 01/26/16 [facility] 01/26/16 PROVIDER PLUS 10/25/18 documented as of this encounter
--- OUTSIDE RECORDS SUMMARY | 2024-09-26 16:41 | XMS_ITS | Encounter Summary ---
Author Organization [facility] Address [address] [place] [address] Care Team Providers Care Stuffer Name Role Phone Johnny Davis MD Primary Care Provider Encounter Details Date Type Department Care Team (Late st Contact Info) Description 08/04/2006 Orders Only [facility] Internal Medicine [facility] [address] [facility] [address] [place] [address] Johnny Davis MD [address] [facility] [address] [place] [address] Social History Tobacco Use Types Packs/Day Years Used Date Smoking Tobacco: Never Assessed Comments Unknown Sex and Gender Information Value Date Recorded Sex Assigned at Not on file Legal Sex Female 4:28 AM CRAWLER DRAGLINE OPERATOR Gender Identity Not on file Sexual Orientation Not on file documented as of this encounter Plan of Treatment Upcoming Encounters Date Type Department Care Team (Late st Contact Info) Description 12/11/2024 10:30 AM CRAWLER DRAGLINE OPERATOR Video Visit [facility] Internal Medicine [facility] [address] [facility] [address] [place] [address] Laura Pritchard, MARYJO [address] [place] [address] 07/07/2025 11:00 AM CDT Office Visit [facility] Internal [facility] [address] [facility] [address] [place] [address] Johnny Davis MD [address] [phone] documented as of this encounter Visit Diagnoses Not on filedocumented in this encounter Additional Health Concerns Infection Onset Date Last Indicated Resolved Time R/O COVID-19 09/26/2019 09/26/2019 09/26/2019 2:08 PM CDT R/O COVID-19 09/26/2019 09/26/2019 09/26/2019 3:24 PM CDT R/O COVID-19 09/26/2019 09/26/2019 09/28/2019 2:36 AM CDT documented as of this encounter Care Teams Stuffer Relationship Specialty Start Date End Date Johnny Davis MD [address] [place] [address] PCP - General Internal Medicine 12/12/12 noe 01/26/16 01/26/16 Parminderoc Parry 01/26/16 [facility] 01/26/16 PROVIDER PLUS 10/25/18 documented as of this encounter
--- OUTSIDE RECORDS SUMMARY | 2024-09-26 16:41 | XMS_ITS | Encounter Summary ---
Author Organization [facility] Address [address] [place] [address] Care Team Providers Care Plastic Tubing Insulation Supervisor Name Role Phone Johnny Davis MD Primary Care Provider Encounter Details Date Type Department Care Team (Late st Contact Info) Description 10/19/2006 Orders Only [facility] [address] [facility] [address] [place] [phone] Johnny Davis MD [address] [facility] [address] [place], [place] [phone] Social History Tobacco Use Types Packs/Day Years Used Date Smoking Tobacco: Never Assessed Comments Unknown Sex and Gender Information Value Date Recorded Sex Assigned at Not on file Legal Sex Female 4:28 AM WET ROASTER Gender Identity Not on file Sexual Orientation Not on file documented as of this encounter Progress Notes * Johnny Davis MD - 06/22/2007 4:57 PM CDT TIME:12:56 pm PATIENT`S HOME PHONE: PATIENT`S WORK PHONE: PATIENT`S INSURANCE: [employer] WHO TOOK THE CALL: Lia Husain R GENERAL INFORMATION PATIENT STATUS: Established Patient. LAST VISIT: 09.18.06 ALTERNATIVE PHONE NUMBER: [phone] WHO CALLED: Patient called. CURRENT ALLERGY LIST: [facility] NUMBER: [phone] OTHER INFORMATION: PROBLEMS: sx for 1 day tried robitussin , ibuprofen CONGESTION: Patient complains of chest congestion. COUGH:Patient complains of cough. EARACHE: Patient complains of earache. FEVER: Patient complains of fever. 100-101 HEADACHE: Patient complains of headache. SORE THROAT: Patient complains of sore throat. all on the left side of head , SECTION 1: DOCTOR`S RESPONSE: alli 10/19/06 at 01:04 pm MEDICATIONS: Call in to Pharmacy LEVAQUIN ORAL TABLET 500 MG, 1 Every Day, 10 Dispensed, status: NEW PRESCRIPTION, 10/19/2006. FINAL ACTION: sagar 10/19/06 at 01:15 pm Spoke with patient 10/19/06 at 01:16 pm. jesus Called pharmacy at 10/19/06 at 01:15 pm. tsj Electronically Signed by: Jannie Linares on October documented in this encounter Plan of Treatment Upcoming Encounters Date Type Department Care Team (Late st Contact Info) Description 12/11/2024 10:30 AM WET ROASTER Video Visit [facility] [place] [address] [address] [facility] [address] [place] [phone] Laura Pritchard NP [address] [phone] 07/07/2025 11:00 AM CDT Office Visit [facility] [address] [facility] [address] [place] [phone] Johnny Davis MD [address] [phone] documented as of this encounter Visit Diagnoses Not on filedocumented in this encounter Additional Health Concerns Infection Onset Date Last Indicated Resolved Time R/O COVID-19 09/26/2019 09/26/2019 09/26/2019 2:08 PM CDT R/O COVID-19 09/26/2019 09/26/2019 09/26/2019 3:24 PM CDT R/O COVID-19 09/26/2019 09/26/2019 09/28/2019 2:36 AM CDT documented as of this encounter Care Teams Plastic Tubing Insulation Supervisor Relationship Specialty Start Date End Date Johnny Davis MD [address] [place] [id number] PCP - General Internal Medicine 12/12/12 noe 01/26/16 01/26/16 Parminderoc Parry 01/26/16 [facility] 01/26/16 PROVIDER PLUS 10/25/18 documented as of this encounter
--- OUTSIDE RECORDS SUMMARY | 2024-09-26 16:41 | XMS_ITS | Encounter Summary ---
Author Organization [facility] Address [address] [place] [address] Care Team Providers Care Bookstore Manager Name Role Phone Johnny Davis MD Primary Care Provider Encounter Details Date Type Department Care Team (Late st Contact Info) Description 10/25/2006 Outpatient Historical [facility] Internal Medicine [facility] [address] [facility] [address] [place] [address] Johnny Davis MD [address] [facility] [address] [place] [address] Social History Tobacco Use Types Packs/Day Years Used Date Smoking Tobacco: Never Assessed Comments Unknown Sex and Gender Information Value Date Recorded Sex Assigned at Not on file Legal Sex Female 4:28 AM PROGRAM CHECKER Gender Identity Not on file Sexual Orientation Not on file documented as of this encounter Plan of Treatment Upcoming Encounters Date Type Department Care Team (Late st Contact Info) Description 12/11/2024 10:30 AM PROGRAM CHECKER Video Visit [facility] Internal Medicine [facility] [address] [facility] [address] [place] [address] Laura Pritchard, MARYJO [address] [place] [id number] [place] [address] 07/07/2025 11:00 AM CDT Office Visit [facility] Internal Medicine [facility] [address] [facility] [address] [place] [address] Johnny Davis MD [address] [phone] documented as of this encounter Visit Diagnoses Not on filedocumented in this encounter Additional Health Concerns Infection Onset Date Last Indicated Resolved Time R/O COVID-19 09/26/2019 09/26/2019 09/26/2019 2:08 PM CDT R/O COVID-19 09/26/2019 09/26/2019 09/26/2019 3:24 PM CDT R/O COVID-19 09/26/2019 09/26/2019 09/28/2019 2:36 AM CDT documented as of this encounter Care Teams Bookstore Manager Relationship Specialty Start Date End Date Johnny Davis MD [address] [place] [id number] PCP - General Internal Medicine 12/12/12 noe 01/26/16 01/26/16 Parminderoc Parry 01/26/16 [facility] 01/26/16 PROVIDER PLUS 10/25/18 documented as of this encounter
--- OUTSIDE RECORDS SUMMARY | 2024-09-26 16:41 | XMS_ITS | Encounter Summary ---
Author Organization [facility] Address [address] [place] [address] Care Team Providers Care Journal Box Inspector Name Role Phone Johnny Davis MD Primary Care Provider Encounter Details Date Type Department Care Team (Latest Contact Info) Description 02/07/2007 Inpatient Historical [facility] PATIENT IN A BED Johnny Riley Major Depressive Disorder, Single Episode, Unspecified Social History Tobacco Use Types Packs/Day Years Used Date Smoking Tobacco: Never Assessed Comments Unknown Sex and Gender Information Value Date Recorded Sex Assigned at Not on file Legal Sex Female 4:28 AM BASKET TURNER Gender Identity Not on file Sexual Orientation Not on file documented as of this encounter Plan of Treatment Upcoming Encounters Date Type Department Care Team (Late st Contact Info) Description 12/11/2024 10:30 AM BASKET TURNER Video Visit [facility] Internal Medicine [facility] [address] [facility] [address] [place] [address] Laura Pritchard NP [address] [place] [address] [place] [address] 07/07/2025 11:00 AM CDT Office Visit [facility] Internal [facility] [address] [facility] [address] [place] [address] Johnny Davis MD [address] [facility] [address] [place] [address] documented as of this encounter Procedures Procedure Name Priority Date/Time Associated Diagnosis Comments URINALYSIS W/REFLEX MICROSCOPIC Routine 02/08/2007 10:33 AM BASKET TURNER CBC WITH DIFFERENTIAL Routine 02/08/2007 10:00 AM BASKET TURNER CBC WITH DIFFERENTIAL Routine 02/08/2007 10:00 AM BASKET TURNER TSH WITH REFLEX FT4 AND FT3 Routine 02/08/2007 5:40 AM BASKET TURNER COMPREHENSIVE METABOLIC PANEL Routine 02/08/2007 5:40 AM BASKET TURNER documented in this encounter Results * (ABNORMAL) URINALYSIS (02/08/2007 10:33 AM BASKET TURNER) COLOR UA Yellow INTERFACE SYSTEM CLARITY UA Slt. Cloudy(A) Clear INTERFACE SYSTEM SPECIFIC GRAVITY UA 1.014 1.001 - 1.035 INTERFACE SYSTEM PH UA 7.5 5.0 - 8.0 INTERFACE SYSTEM LEUKOCYTE ESTERASE UA 3+(A) Negative INTERFACE SYSTEM NITRITE UA Negative Negative INTERFACE SYSTEM PROTEIN UA Trace(A) Negative INTERFACE SYSTEM GLUCOSE UA Negative Negative INTERFACE SYSTEM KETONES UA Negative Negative INTERFACE SYSTEM UROBILINOGEN UA <1 <=1 mg/dL INTE RFACE SYSTEM BILIRUBIN UA Negative Negative INTERFA CE SYSTEM BLOOD UA Negative Negative INTERFACE SYSTEM WBC UA 36(H) 0 - 5 /HPF INTERFACE SYSTEM RBC UA 1 0 - 4 /HPF INTERFACE SYSTEM BACTERIA UA 1+(A) None Seen /HPF INTERFACE SYSTEM EPITHELIAL CELLS, URINE 2-5 /HPF INTERFACE SYSTEM 02/08/2007 10:3 3 AM BASKET TURNER Johnny Osvaldo URINE ORDERABLES Edited INTERFACE SYSTEM Refer to clinic/hospital department * CBC WITH DIFFERENTIAL (02/08/2007 10:00 AM BASKET TURNER) NEUTROPHILS 57 45 - 70 % INTERFAC E SYSTEM LYMPHOCYTES 33 16 - 45 % INTERFAC E SYSTEM MONOCYTES 6 3 - 13 % INTERFACE SYSTEM EOSINOPHILS 4 0 - 7 % INTERFAC E SYSTEM BASOPHILS 1 0 - 2 % INTERFACE SYSTEM NEUTROPHIL ABSOLUTE 5.62 1.90 - 7.00 K/uL INTERFACE SYSTEM LYMPHOCYTE ABSOLUTE 3.23 0.70 - 4.50 K/uL INTERFACE SYSTEM MONOCYTE ABSOLUTE 0.61 0.10 - 1.30 K/uL INTERFACE SYSTEM EOSINOPHIL ABSOLUTE 0.36 0.00 - 0.70 K/uL INTERFACE SYSTEM BASOPHILS ABSOLUTE 0.06 0.00 - 0.20 K/uL INTERFACE SYSTEM 02/08/2007 10:0 0 AM BASKET TURNER Result [facility] Johnny Riley HEMATOLOGY ORDERABLES Edite d Performing Organization Address City/[facility] de Phone Number INTERFACE SYSTEM Refer to clinic/hospital department * (ABNORMAL) CBC WITH DIFFERENTIAL (02/08/2007 10:00 AM BASKET TURNER) WBC 9.9(H) 4.0 - 9.8 K/uL INTERFACE SYSTEM RBC 5.15(H) 3.90 - 4.90 M/uL INTERFACE SYSTEM HEMOGLOBIN 15.1(H) 11.8 - 14.8 g/dL INTERFACE SYSTEM HEMATOCRIT 45.0(H) 35.5 - 44.0 % INTERFACE SYSTEM MCV 87.4 82.0 - 99.0 fL INTERFACE SYSTEM MCH 29.3 27.2 - 32.6 pg INTERFACE SYSTEM MCHC 33.6 31.5 - 35.5 % INTERFACE SYSTEM RDW 14.2 11.5 - 14.5 % INTERFACE SYSTEM RDW-STDEV 45.0 37.1 - 48.7 fL INTERFACE SYSTEM PLATELETS 292 140 - 350 K/uL INTERFACE SYSTEM MPV 10.5 9.3 - 12.4 fL INTERFACE SYSTEM 02/08/2007 10:0 0 AM BASKET TURNER Johnny Riley HEMATOLOGY ORDERABLES Edite d Performing Organization Address City/[facility] de Phone Number INTERFACE SYSTEM Refer to clinic/hospital department * TSH WITH REFLEX FT4 AND FT3 (02/08/2007 5:40 AM BASKET TURNER) TSH 1.16 0.27 - 4.20 uU/mL INTERFACE SYSTEM 02/08/2007 5:40 AM BASKET TURNER Johnny Riley CHEMISTRY ORDERABLES Edited INTERFACE SYSTEM Refer to clinic/hospital department * COMPREHENSIVE METABOLIC PANEL (02/08/2007 5:40 AM BASKET TURNER) GLUCOSE 81 65 - 99 mg/dL INTERFACE SYSTEM CREATININE 0.87 0.51 - 0.95 mg/dL INTERFACE SYSTEM CALCIUM 8.7 8.4 - 10.2 mg/dL INTERFACE SYSTEM ALKALINE PHOSPHATASE 98 35 - 104 U/L INTERFACE SYSTEM AST 19 12 - 32 U/L INTERFACE SYSTEM ALT 21 0 - 31 U/L INTERFACE SYSTEM TOTAL PROTEIN 6.7 6.3 - 8.6 g/dL INTERFACE SYSTEM ALBUMIN 3.8 3.4 - 4.8 g/dL INTERFACE SYSTEM BILIRUBIN TOTAL 0.2 0.2 - 1.0 mg/dL INTERFACE SYSTEM BUN 10 6 - 20 mg/dL INTERFACE SYSTEM SODIUM 142 135 - 145 mmol/L INTERFACE SYSTEM POTASSIUM 4.4 3.5 - 4.9 mmol/L INTERFACE SYSTEM CHLORIDE 105 96 - 108 mmol/L INTERFACE SYSTEM CO2 27 22 - 30 mmol/L INTERFACE SYSTEM GFR, >60 >=60 mL/min/1.7 sq meter INTERFACE SYSTEM GFR >60 >=60 mL/min/1.7 sq meter INTERFACE SYSTEM Comment: Estimated GFR rate interpretative information for both Americans and non- Americans is available on the [facility] Intranet at: [email or web address] Select: Lab Policies and Procedures Select: Reference Ranges - GFR 02/08/2007 5:40 AM BASKET TURNER Johnny Riley CHEMISTRY ORDERABLES Edited Performing Organization Address [facility]/State/ZIP Co de Phone Number INTERFACE SYSTEM Refer to clinic/hospital department documented in this encounter Visit Diagnoses Diagnosis Major depressive disorder, single episode, unspecified documented in this encounter Additional Health Concerns Infection Onset Date Last Indicated Resolved Time R/O COVID-19 09/26/2019 09/26/2019 09/26/2019 2:08 PM CDT R/O COVID-19 09/26/2019 09/26/2019 09/26/2019 3:24 PM CDT R/O COVID-19 09/26/2019 09/26/2019 09/28/2019 2:36 AM CDT documented as of this encounter Care Teams Journal Box Inspector Relationship Specialty Start Date End Date Johnny Davis MD [address] [place], [place] [phone] PCP - General Internal Medicine 12/12/12 noe 01/26/16 01/26/16 Parminder Parry 01/26/16 [facility] 01/26/16 PROVIDER PLUS 10/25/18 documented as of this encounter
--- OUTSIDE RECORDS SUMMARY | 2024-09-26 16:41 | XMS_ITS | Clinical Summary ---
Author Organization [facility] [employer] Address [address] [place] [address] Care Team Providers Care Brick Stacker Name Role Phone Johnny Davis MD Primary Care Provider [phone] Source Comments [facility] [employer],non-owned Affiliates and Associated Physician Practices is amultiple site organization consisting of ambulatory clinics and hospital sitesin [place], [place], [place] and [place]. This disclosure is being madepursuant to the Care Everywhere program and may not contain all information available regarding this patient. Last updated 17.[facility] [employer] Allergies Active Allergy Reactions Criticality Noted Date Comments Albumin Other 05/02/2005 Bee Venom Shortness of Breath High 06/04/2015 Chicken-Derived Products Other Low 06/04/2015 Dill Oil Shortness of Breath High 01/17/2013 Egg Extract [Other] Unknown 01/17/2013 Received name: Egg Extract Gabapentin Anaphylaxis,Other High 03/10/2015 Other reaction(s): Other (See Comments) Severe tremor, involuntary movement Gel caps, gabapentin caps due to gel tremor Gel [Other] Anaphylaxis High 11/25/2009 Gel caps, gabapentin caps due to gel Received name: Gel Honey Bee Venom Unknown 01/17/2013 Ibuprofen Shortness of Breath High 06/04/2015 Influenza Vaccines Other Low 01/17/2013 Allergic to eggs Iodine Shortness of Breath High 03/10/2015 Other reaction(s): Other (See Comments) Pt states topical betadine no reaction Levofloxacin Other Low 06/04/2015 Achilles heel pain Morphine Nausea and/or Vomiting Low 01/17/2013 States gets nauseated with morphine Penicillins Other,Swelling Medium 01/17/2013 Povidone Iodine Shortness of Breath High 01/17/2013 Tomato Rash Medium 01/17/2013 Medications * This document contains information received from the source organization and may not represent a complete record from that organization. * Be aware that medications may not be up to date on this document. Alwaysverify current medications with the patient. vitamin C (ASCORBIC ACID) 1000 MG tablet Take 2,000 mg by mouth Active aspirin (ASPIRIN) 81 MG tablet Take 81 mg by mouth Active cetirizine (ZYRTEC) 10 MG tablet Take 10 mg by mouth Active Cholecalcifero l 2000 UNITS Take 6,000 Units by mouth Active Cyanocobalamin 1000 MCG Take 3,000 mcg by mouth Active HYDROcodone-ac etaminophen (NORCO) 10-325 MG tablet Take 1 tablet by mouth Every 4-6 hours as needed 06/14/19 17 Active mometasone-for moterol (DULERA) 200-5 MCG/ACT inhaler Inhale 2 puffs by mouth 12/09/19 15 Active montelukast (SINGULAIR) 10 MG tablet 05/08/19 16 Active Multiple Vitamin (MULTI VITAMIN MENS) TABS Take 1 tablet by mouth Active [place]-3 Fatty Acids (FISH OIL) 1000 MG capsule Active albuterol HFA (PROVENTIL; VENTOLIN; PROAIR) 108 (90 Base) MCG/ACT inhaler 05/14/19 16 Active raNITIdine (ZANTAC) 150 MG capsule 03/11/19 18 Active carBAMazepine XR 12hr (TEGRETOL XR) 200 MG tablet Take 400 mg by mouth 2 times daily 07/04/19 19 Active atorvastatin (LIPITOR) 20 MG tablet Take 20 mg by mouth once daily 07/19/19 19 Active predniSONE (DELTASONE) 10 MG tablet 1 12/07/19 19 Active tiZANidine (ZANAFLEX) 4 MG tablet take 1 tablet by oral route every night at bedtime 06/18/19 17 Active fluocinonide (LIDEX) 0.05 % cream Apply to affected area 2 times daily 10/28/19 18 Active amLODIPine (NORVASC) 5 MG tablet Take 5 mg by mouth once daily 01/29/20 21 Active losartan (COZAAR) 50 MG tablet Take 50 mg by mouth 2 times daily 12/05/19 21 Active topiramate (TOPAMAX) 50 MG tablet Take 75 mg by mouth 2 times daily Active clonazePAM (KLONOPIN) 1 MG tabletIndicati ons:Generalize d anxiety disorder TAKE 1 TABLET BY MOUTH IN THE MORNING AND TAKE 2 TABLETS BY MOUTH AT BEDTIME 90 tablet 06/16/19 22 Active valsartan (Diovan) 160 MG tabletIndicati ons:Hypertensi on Take 160 mg by mouth once daily. Indications: High Blood Pressure Disorder Active pantoprazole EC (Protonix) 40 MG tabletIndicati ons:Gastroesop hageal Reflux Disease Take 40 mg by mouth once daily. Indications: Gastroesophageal Reflux Disease Active nortriptyline (Pamelor) 75 MG capsuleIndicat ions:Insomnia Take 75 mg by mouth at bedtime. Indications: Trouble Sleeping Active Fluticasone-Um eclidin-Vilant (Trelegy Ellipta) 100-62.5-25 MCG/ACTIndicat ions:Asthma Inhale 1 puff by mouth at bedtime. Indications: Asthma Activ e cyclobenzaprin e (Flexeril) 10 MG tabletIndicati ons:Muscle Spasm Take 10 mg by mouth 3 times daily as needed for Muscle Spasms. Indications: Muscle Spasm Active Active Problems Problem Noted Date Diagnosed Date Spondylosis without myelopathy or radiculopathy 12/12/2018 Myalgia and myositis 12/12/2018 Other intervertebral disc displacement, lumbar r egion 12/12/2018 Pain in thoracic spine 12/12/2018 Spinal enthesopathy 12/12/2018 Cervical spondylosis without myelopathy 12/13/19 19 Atherosclerosis of [place] co ronary artery of [place] heart without angina pectoris 08/21/2017 Overview (10/16/2017): Overview: Noted on CT scan of chest Arteriosclerosis of both carotid arteries 2017 Panic disorder with agoraphobia 08/14/2017 Other specified dorsopathies, cervical region Arteriosclerosis of abdominal aorta 01/29/2016 MDD (major depressive disord er), recurrent episode, moderate 08/11/2015 Cervicalgia 12/09/2014 GERD (gastroesophageal reflux disease) 4 HLD (hyperlipidemia) 09/18/2006 Tobacco use disorder 09/18/2006 Generalized anxiety disorder 05/02/2005 Allergic rhinitis 12/05/2003 Apnea, sleep 12/05/2003 Asthma-chronic obstructive p ulmonary disease overlap syndrome 12/05/2003 Obstructive chronic bronchitis with exacerbation 12/05/2003 Resolved Problems Problem Noted Date Diagnosed Date Resolved Date Intractable episodic cluster headache 12/09/2017 07/12/2018 Conversion disorder with mix ed symptoms, acute episode, with psychological stressor 08/14/2017 07/25/2018 Major depressive disorder wi th single episode, in partial remission 05/04/2013 10/16/2017 Overview (10/16/2017): Overview: Updated Depression per visit note with Dr. Davis on 02/20/17./eunice Acute diverticulitis 08/23/2010 018 Immunizations Immunization Administration Dates Next Due TD (AGE 8-ADULT) 02/25/2006 Social History Tobacco Use Types Packs/Day Years Used Date Smoking Tobacco: Every Day Cigarettes Smokeless Tobacco: Never Tobacco Cessation:Ready to Q uit: Yes; Counseling Given: Yes Alcohol Use Standard Drinks/Week Comments No 0 (1 standard drink = 0.6 oz pur e alcohol) OASIS D0700: Social Isolation Answer Da te Recorded Frequency of experiencing loneliness or isolatio n Rarely 04/21/2022 OASIS A1250: Transportation Answer Date Recorded Lack of Transportation (Medical) No 04/21/2022 Lack of Transportation (Non-Medical) No 04/21/2022 Patient Unable or Declines to Respond No 04/21/2022 OASIS B1300: Health Literacy Answer [place] e Recorded Frequency of needing help to read materials from doctor or pharmacy Rarely 04/21/2022 PHQ-2 Answer Date Recorded PHQ2 TOTAL SCORE 0 06/24/2021 Comments Unknown Sex and Gender Information Value Date Recorded Sex Assigned at Female 09/09/2021 7:31 AM CDT Legal Sex Female 6:02 AM WORKFORCE CONSULTANT Gender Identity Female 09/09/2021 7:31 AM CDT Sexual Orientation Not on file Last Filed Vital Signs Vital Sign Reading Time Taken Comments Blood Pressure 140/68 03/28/2022 3:10 PM WORKFORCE CONSULTANT Pulse 93 03/28/2022 3:10 PM WORKFORCE CONSULTANT Temperature 35.8 C (96.5 F) 03/28/2022 3:10 PM WORKFORCE CONSULTANT Respiratory Rate 16 03/28/2022 3:10 PM WORKFORCE CONSULTANT Oxygen Saturation 96% 03/28/2022 3:10 PM WORKFORCE CONSULTANT Inhaled Oxygen Concentration - - Weight 78.5 kg (173 lb) 04/09/2019 4:41 PM WORKFORCE CONSULTANT Height 167.6 cm (5' 6) 04/09/2019 4:41 PM WORKFORCE CONSULTANT Body Mass Index 27.92 04/09/2019 4:41 PM WORKFORCE CONSULTANT Plan of Treatment Health Maintenance Due Date Last Done Comments BONE DENSITY TESTING 1955 COLOGUARD (AGES 45-75) - COL ON CA SCREENING 1956 COLON MONITORING 1956 COLONOSCOPY - COLON CA SCREENING 1956 CT COLONOGRAPHY - COLON CA SCREENING 1955 Colorectal Cancer Screening 1955 FIT - COLON CA SCREENING 1956 FLEX SIG - COLON CA SCREENING 1956 MAMMOGRAM 1956 HEPATITIS C SCREENING 09/19/1974 PNEUMOCOCCAL VACCINE 50+ (1 of 2 - PCV) 09/24/1975 ZOSTER VACCINE (1 of 2) 2006 DTAP/TDAP/TD VACCINES (2 - T d or Tdap) 02/26/2016 02/25/2006 Respiratory Syncytial Virus (RSV) Vaccine Pt: or over 60 yrs (1 - Risk 60-74 years 1-dose series) 2016 COVID-19 VACCINE (2 - 2023-2 5 season) 2023 11/03/2021 DEPRESSION SCREENING 02/07/2024 MEDICARE AWV CALENDAR YEAR 2024 INFLUENZA VACCINE (#1) 2024 12/19/2019 HEPATITIS B VACCINE Aged Out No longe r eligible based on patient's age to complete this topic HIB VACCINE Aged Out No longer eligi ble based on patient's age to complete this topic HPV VACCINE Aged Out No longer eligi ble based on patient's age to complete this topic MENINGOCOCCAL (Group B) VACC INE SHARED DECISION-MAKING Aged Out No longer eligibl e based on patient's age to complete this topic MENINGOCOCCAL GROUPS A/C/Y/W VACCINE Aged Out No longer eligible b ased on patient's age to complete this topic Insurance AETNA AETNA MEDICARE ADV Advance Directives Documents on File Type Date Recorded Patient Coating Machine Operator Expl anation Adv Directive/Living Will/POA Care Teams Brick Stacker Relationship Specialty Start Date End Date Johnny Davis MD [address] [place] [id number] PCP - General 05/24/17
--- OUTSIDE RECORDS SUMMARY | 2024-09-26 16:41 | XMS_ITS | Encounter Summary ---
Author Organization [facility] Address [address] [place] [address] Care Team Providers Care Broke Handler Name Role Phone Johnny Davis MD Primary Care Provider Encounter Details Date Type Department Care Team (Late st Contact Info) Description 08/04/2005 Orders Only [facility] Internal Medicine [facility] [address] [facility] [address] [place] [address] Johnny Davis MD [address] [facility] [address] [place] [address] Social History Tobacco Use Types Packs/Day Years Used Date Smoking Tobacco: Never Assessed Comments Unknown Sex and Gender Information Value Date Recorded Sex Assigned at Not on file Legal Sex Female 4:28 AM FLOOR RENOVATOR Gender Identity Not on file Sexual Orientation Not on file documented as of this encounter Plan of Treatment Upcoming Encounters Date Type Department Care Team (Late st Contact Info) Description 12/11/2024 10:30 AM FLOOR RENOVATOR Video Visit [facility] Internal Medicine [facility] [address] [facility] [address] [place] [address] Laura Pritchard, MARYJO [address] [place] [address] 07/07/2025 11:00 AM CDT Office Visit [facility] Internal Medicine [facility] [address] [facility] [address] [place] [address] Johnny Davis MD [address] [id number] documented as of this encounter Visit Diagnoses Not on filedocumented in this encounter Additional Health Concerns Infection Onset Date Last Indicated Resolved Time R/O COVID-19 09/26/2019 09/26/2019 09/26/2019 2:08 PM CDT R/O COVID-19 09/26/2019 09/26/2019 09/26/2019 3:24 PM CDT R/O COVID-19 09/26/2019 09/26/2019 09/28/2019 2:36 AM CDT documented as of this encounter Care Teams Broke Handler Relationship Specialty Start Date End Date Johnny Davis MD [address] [place] [address] PCP - General Internal Medicine 12/12/12 noe 01/26/16 01/26/16 Parminderoc Parry 01/26/16 [facility] 01/26/16 PROVIDER PLUS 10/25/18 documented as of this encounter
--- OUTSIDE RECORDS SUMMARY | 2024-09-26 16:41 | XMS_ITS | Encounter Summary ---
Author Organization [facility] Address [address] [place] [address] Care Team Providers Care Beading Machine Operator Name Role Phone Johnny Davis MD Primary Care Provider Encounter Details Date Type Department Care Team (Late st Contact Info) Description 09/18/2006 Outpatient Historical [facility] Internal Medicine [facility] [address] [facility] [address] [facility] [place] [address] Johnny Davis MD [address] [place], [place] [address] [place], [place] [phone] Social History Tobacco Use Types Packs/Day Years Used Date Smoking Tobacco: Never Assessed Comments Unknown Sex and Gender Information Value Date Recorded Sex Assigned at Not on file Legal Sex Female 4:28 AM FORESTRY BIOLOGY SPECIALIST Gender Identity Not on file Sexual Orientation Not on file documented as of this encounter Last Filed Vital Signs Vital Sign Reading Time Taken Comments Blood Pressure 130/72 09/18/2006 2:15 PM CDT Pulse 100 09/18/2006 2:15 PM CDT Temperature 37 C (98.6 F) 09/18/2006 2:15 PM CDT Respiratory Rate - - Oxygen Saturation - - Inhaled Oxygen Concentration - - Weight 81.6 kg (180 lb) 09/18/2006 2:15 PM CDT Height - - Body Mass Index 29.05 05/05/2006 2:00 PM CDT documented in this encounter Plan of Treatment Upcoming Encounters Date Type Department Care Team (Late st Contact Info) Description 12/11/2024 10:30 AM FORESTRY BIOLOGY SPECIALIST Video Visit [facility] Internal Medicine [facility] A [facility] [address] [facility] [address] [phone] Laura Pritchard NP [address] [facility] [address] [place] [phone] 07/07/2025 11:00 AM CDT Office Visit [facility] Internal Medicine Medical [facility] [address] [facility] [address] [place] [phone] Johnny Davis MD [address] [facility] [address] [place] [address] documented as of this encounter Visit Diagnoses Not on filedocumented in this encounter Additional Health Concerns Infection Onset Date Last Indicated Resolved Time R/O COVID-19 09/26/2019 09/26/2019 09/26/2019 2:08 PM CDT R/O COVID-19 09/26/2019 09/26/2019 09/26/2019 3:24 PM CDT R/O COVID-19 09/26/2019 09/26/2019 09/28/2019 2:36 AM CDT documented as of this encounter Care Teams Beading Machine Operator Relationship Specialty Start Date End Date Johnny Davis MD [address] [facility] [address] [place] [address] PCP - General Internal Medicine 12/12/12 sohan 01/26/16 01/26/16 Parminder Sohan 01/26/16 [facility] 01/26/16 PROVIDER PLUS 10/25/18 documented as of this encounter
--- OUTSIDE RECORDS SUMMARY | 2024-09-26 16:41 | XMS_ITS | Encounter Summary ---
Author Organization [facility] Address [address] [place] [address] Care Team Providers Care Log Carrier Operator Name Role Phone Johnny Davis MD Primary Care Provider Encounter Details Date Type Department Care Team (Late st Contact Info) Description 11/07/2006 Orders Only [facility] Internal Medicine Medical [facility] [address] [place] [address] [address] [place] [address] Johnny Davis MD [address] [facility] [address] [place] [address] Social History Tobacco Use Types Packs/Day Years Used Date Smoking Tobacco: Never Assessed Comments Unknown Sex and Gender Information Value Date Recorded Sex Assigned at Not on file Legal Sex Female 4:28 AM INSOLE TACK PULLER HAND Gender Identity Not on file Sexual Orientation Not on file documented as of this encounter Progress Notes * Johnny Davis MD - 06/22/2007 9:28 AM CDT TIME:11:54 am PATIENT`S HOME PHONE: PATIENT`S WORK PHONE: PATIENT`S INSURANCE: [employer] WHO TOOK THE CALL: Lia Husain R GENERAL INFORMATION PATIENT STATUS: Established Patient. LAST VISIT: 10.25.06 ALTERNATIVE PHONE NUMBER: [phone] / [phone] WHO CALLED: Patient`s spouse called. Murray CURRENT ALLERGY LIST: EGGS IODINE PENICILLIN PHARMACY NUMBER: [phone] PROBLEMS: pt is still having jittery problems , wanting to be seen by you today or tomorrow, can i add tomorrow? SECTION 1: DOCTOR`S RESPONSE: alli 11/07/06 at 12:51 pm nothing available, this may be from prednisone, alsoseeing psychiatry about her nerves 11/15 (zonia) MEDICATIONS: Call in to Pharmacy SEROQUEL ORAL TABLET 50 MG, 2 Two Times A Day, 120 Dispensed, 5 Fills, status: NEW PRESCRIPTION, 11/07/2006. this should help to adjust this until she sees Dr Riley. FINAL ACTION: theodora 11/07/06 at 02:10 pm Spoke with patient 11/07/06 at 02:10 pm. with Murray / alia SECTION 2: as an alternative can she take xanax on top of the seroquel ? DOCTOR`S RESPONSE: alli 11/07/06 at 02:15 pm yes MEDICATIONS: ALPRAZOLAM ORAL TABLET 0.25 MG, 1 Two Times A Day, As Needed, 60 Dispensed, status: NEW PRESCRIPTION, 11/07/2006. FINAL ACTION: theodora 11/07/06 at 04:00 pm Called pharmacy at 11/07/06 at 04:00 pm. / alia Electronically Signed by: Lia Husain on Tuesday, November 07, 2006 documented in this encounter Plan of Treatment Upcoming Encounters Date Type Department Care Team (Late st Contact Info) Description 12/11/2024 10:30 AM INSOLE TACK PULLER HAND Video Visit [facility] Internal Medicine [facility] [address] [facility] [address] [place] [address] Laura Pritchard NP [address] [place] [address] 07/07/2025 11:00 AM CDT Office Visit [facility] Internal Medicine [facility] [address] [facility] [address] [place] [address] Johnny Davis MD [address] [place] [address] documented as of this encounter Visit Diagnoses Not on filedocumented in this encounter Additional Health Concerns Infection Onset Date Last Indicated Resolved Time R/O COVID-19 09/26/2019 09/26/2019 09/26/2019 2:08 PM CDT R/O COVID-19 09/26/2019 09/26/2019 09/26/2019 3:24 PM CDT R/O COVID-19 09/26/2019 09/26/2019 09/28/2019 2:36 AM CDT documented as of this encounter Care Teams Log Carrier Operator Relationship Specialty Start Date End Date Johnny Davis MD [address] [place] [address] PCP - General Internal Medicine 12/12/12 noe 01/26/16 01/26/16 Parminder Parry 01/26/16 [facility] 01/26/16 PROVIDER PLUS 10/25/18 documented as of this encounter
--- OUTSIDE RECORDS SUMMARY | 2024-09-26 16:41 | XMS_ITS | Encounter Summary ---
Author Organization [facility] Address [address] [place] [address] Care Team Providers Care Materials Coordinator Name Role Phone Johnny Davis MD Primary Care Provider Encounter Details Date Type Department Care Team (Late st Contact Info) Description 11/07/2005 Outpatient Historical [facility] Internal Medicine Medical [place] A [facility] [address] [address] Johnny Davis MD [address] [place] [address] Social History Tobacco Use Types Packs/Day Years Used Date Smoking Tobacco: Never Assessed Comments Unknown Sex and Gender Information Value Date Recorded Sex Assigned at Not on file Legal Sex Female 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 Gender Identity Not on file Sexual Orientation Not on file documented as of this encounter Last Filed Vital Signs Vital Sign Reading Time Taken Comments Blood Pressure 130/72 11/07/2005 3:30 PM CDT Pulse 74 11/07/2005 3:30 PM CDT Temperature - - Respiratory Rate 12 11/07/2005 3:30 PM CDT Oxygen Saturation - - Inhaled Oxygen Concentration - - Weight 0.454 kg (1 lb) 11/07/2005 3:30 PM CDT Height - - Body Mass Index 0.16 05/31/2005 11:45 AM CDT documented in this encounter Plan of Treatment Upcoming Encounters Date Type Department Care Team (Late st Contact Info) Description 12/11/2024 10:30 AM CAMP COUNSELOR Video Visit [facility] Internal Medicine [facility] 189 [address] [facility] [address] [address] Laura Pritchard, MARYJO [address] [facility] [address] [place] [phone] 07/07/2025 11:00 AM CDT Office Visit [facility] Internal Medicine Medical [place] A [facility] [address] [facility] [address] [address] Johnny Davis MD [address] [facility] [address] [address] documented as of this encounter Visit Diagnoses Not on filedocumented in this encounter Additional Health Concerns Infection Onset Date Last Indicated Resolved Time R/O COVID-19 09/26/2019 09/26/2019 09/26/2019 2:08 PM CDT R/O COVID-19 09/26/2019 09/26/2019 09/26/2019 3:24 PM CDT R/O COVID-19 09/26/2019 09/26/2019 09/28/2019 2:36 AM CDT documented as of this encounter Care Teams Materials Coordinator Relationship Specialty Start Date End Date Johnny Davis MD [address] [facility] [address] [place] [address] PCP - General Internal Medicine 12/12/12 noe 01/26/16 01/26/16 Parminderoc Parry 01/26/16 [facility] 01/26/16 PROVIDER PLUS 10/25/18 documented as of this encounter
--- OUTSIDE RECORDS SUMMARY | 2024-09-26 16:41 | XMS_ITS | Encounter Summary ---
Author Organization [facility] Address [address] [place] [address] Care Team Providers Care Wire Stitcher Name Role Phone Johnny Davis MD Primary Care Provider Encounter Details Date Type Department Care Team (Late st Contact Info) Description 10/25/2006 Outpatient Historical [facility] Internal Medicine [facility] [address] [facility] [address] [place] [address] Johnny Davis MD [address] [facility] [address] [place] [address] Social History Tobacco Use Types Packs/Day Years Used Date Smoking Tobacco: Never Assessed Comments Unknown Sex and Gender Information Value Date Recorded Sex Assigned at Not on file Legal Sex Female 4:28 AM 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 Gender Identity Not on file Sexual Orientation Not on file documented as of this encounter Plan of Treatment Upcoming Encounters Date Type Department Care Team (Late st Contact Info) Description 12/11/2024 10:30 AM INFORMATION MANAGEMENT OFFICER Video Visit [facility] Internal Medicine [facility] [address] [facility] [address] [place] [address] Laura Pritchard, MARYJO [address] [place] [address] 07/07/2025 11:00 AM CDT Office Visit [facility] Internal Medicine [facility] [address] [facility] [address] [place] [address] Johnny Davis MD [address] [id number] documented as of this encounter Visit Diagnoses Not on filedocumented in this encounter Additional Health Concerns Infection Onset Date Last Indicated Resolved Time R/O COVID-19 09/26/2019 09/26/2019 09/26/2019 2:08 PM CDT R/O COVID-19 09/26/2019 09/26/2019 09/26/2019 3:24 PM CDT R/O COVID-19 09/26/2019 09/26/2019 09/28/2019 2:36 AM CDT documented as of this encounter Care Teams Wire Stitcher Relationship Specialty Start Date End Date Johnny aDvis MD [address] [place] [address] PCP - General Internal Medicine 12/12/12 noe 01/26/16 01/26/16 Parminderoc Parry 01/26/16 [facility] 01/26/16 PROVIDER PLUS 10/25/18 documented as of this encounter
--- OUTSIDE RECORDS SUMMARY | 2024-09-26 16:41 | XMS_ITS | Encounter Summary ---
Author Organization [facility] Address [address] [place] [address] Care Team Providers Care Artificial Flowers Supervisor Name Role Phone Johnny Davis MD Primary Care Provider [phone] Encounter Details Date Type Department Care Team (Late st Contact Info) Description 09/18/2006 Orders Only 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 TOBACCO USE Patient is a current tobacco user. MEDICATIONS: Medication list current. CHIEF COMPLAINT 3 month check HISTORY: HISTORY: 493.20-ASTHMA WITH COPD The asthma has improved. The patient complains of a cough. No complicationsnoted from the medication presently being used. 729.1-FIBROMYALGIA The patient's myalgia remains stable. No complications noted from the medicationpresently being used. No recent laboratory work done. CURRENT MEDICATION LIST: CITALOPRAM HYDROBROMIDE ORAL TABLET 40 MG, 1 Every Day ALBUTEROL INHALATION AEROSOL SOLUTION 90 MCG/ACT, 2 puffs qid prn VICODIN ORAL TABLET 5-500 MG, 1 Three Times A Day, As Needed NEXIUM ORAL CAPSULE DELAYED RELEASE 40 MG, 1 Every Day ADVAIR DISKUS INHALATION MISCELLANEOUS 500-50 MCG/DOSE, 1 PUFF BID EPIPEN 2-TUYET INTRAMUSCULAR DEVICE 0.3 MG/0.3ML (1:1000), use for bee stings as directed SINGULAIR ORAL TABLET 10 MG, 1 Every Day FLONASE NASAL SUSPENSION 50 MCG/ACT, SPRAY TWICE IN EACH NOSTRIL DAILY NORTRIPTYLINE HCL ORAL CAPSULE CONVENTIONAL 50 MG, 1 Every Day At Bedtime CURRENT ALLERGY LIST: EGGS IODINE PENICILLIN ROS: GENERAL: Normal activity and energy level, no change in appetite. No major weight gain or loss. No malaise, chills, fever, diaphoresis.. ENT: No hearing loss, epistaxis, hoarseness or dysphagia. No sinus congestion.. ENDOCRINE: No heat or cold intolerance, no excessive thirst.. CARDIAC: No chest pain, palpitations, orthopnea, dyspnea on exertion, or paroxysmal nocturnal dyspnea.. RESPIRATORY: No dyspnea, cough, hemoptysis or wheezing.. : No frequency, urgency, hematuria or dysuria.. GI: No abdominal pain, nausea, vomiting, diarrhea, constipation, melena, or hematochezia.. SOCIAL HISTORY: TOBACCO USE: DISCUSSED SMOKING: smoker. PHYSICAL EXAMINATION: CONSTITUTIONAL: GENERAL APPEARANCE: Healthy appearing patient in no distress. NECK/THYROID: Trachea midline. No thyroid enlargement, tenderness, or mass. No supraclavicular or cervical adenopathy. RESPIRATORY: Clear to auscultation and percussion. Normal respiratory effort. CARDIOVASCULAR: CARDIAC: Regular rhythm. No murmurs, rubs, or gallops. ARTERIAL: No aortic bruits. EDEMA/VARICOSITIES OF EXTREMITIES: No edema or varicosities. GASTROINTESTINAL: ABDOMEN: Soft, non-tender, without masses. Bowel sounds active. LIVER/SPLEEN/KIDNEY: No hepatosplenomegaly, tenderness or nodularity. Kidneys not palpable. ASSESSMENT/PLAN: 493.20-ASTHMA WITH COPD ASSESSMENT: The asthma has improved. No complications noted from the medication presently being used. 305.1-TOBACCO ABUSE ASSESSMENT: The patient continues to smoke and was strongly advised to discontinue tobacco productscompletely. Will start medication for better control. MEDICATIONS: CHANTIX STARTING MONTH TUYET ORAL MISCELLANEOUS 0.5 MG X 11 & 1 MG X 42, as directed, 1 Dispensed, status: NEW PRESCRIPTION, 09/18/2006. CHANTIX CONTINUING MONTH TUYET ORAL TABLET 1 MG, as directed, 1 Dispensed, 11 Fills, status: NEW PRESCRIPTION, 09/18/2006. 272.4-HYPERLIPIDEMIA ASSESSMENT: LDL 193, labs at work copied, not on diet and exercise try that first and meds if needed. LAB ORDERS: Order number: [id number] Test Ordered: LIPID PANEL 7600 Order number: [id number] Test Ordered: [facility]. PREVENTIVE COUNSELING The patient was counseled regarding diet, regular sustained exercise for at least 30 minutes 3-4 times per week. RETURN VISIT : Patient instructed to return in 4 months. Electronically Signed by: Johnny Davis MD on Tuesday, September 19, 2006 documented in this encounter Plan of Treatment Upcoming Encounters Date Type Department Care Team (Late st Contact Info) Description 12/11/2024 10:30 AM DESIGN PRINTING MACHINE SETTER Video Visit [facility] [address] [phone] Laura Pritchard NP [address] [phone] 07/07/2025 11:00 AM CDT Office Visit [facility] [address] [facility] [address] [place] [phone] Johnny Davis MD [address] [place] [phone] documented as of this encounter Visit Diagnoses Not on filedocumented in this encounter Additional Health Concerns Infection Onset Date Last Indicated Resolved Time R/O COVID-19 09/26/2019 09/26/201909/2509/26/2019 2:08 PM CDT R/O COVID-19 09/26/2019 09/26/2019 09/26/2019 3:24 PM CDT R/O COVID-19 09/26/2019 09/26/2019 09/28/2019 2:36 AM CDT documented as of this encounter Care Teams Artificial Flowers Supervisor Relationship Specialty Start Date End Date Johnny Davis MD [address] [place] [address] PCP - General Internal Medicine 12/12/12 noe 01/26/16 01/26/16 Parminder Parry 01/26/16 [facility] 01/26/16 PROVIDER PLUS 10/25/18 documented as of this encounter
--- OUTSIDE RECORDS SUMMARY | 2024-09-26 16:41 | XMS_ITS | Encounter Summary ---
Author Organization [facility] Address [address] [place] [address] Care Team Providers Care Pet Trainer Name Role Phone Johnny Davis MD Primary Care Provider Reason for Visit * Reason Onset Date Comments Results 05/31/2023 Encounter Details Date Type Department Care Team (Late st Contact Info) Description 05/31/2023 Telephone [facility] Internal Medicine Medical [facility] [address] [facility] [address] [place] [address] Johnny Davis MD [address] 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 Gender Identity Not on file Sexual Orientation Not on file Occupation Industry Job Start Date Job End Date Not on file Not on file Not on file Not on file documented as of this encounter Miscellaneous Notes * Telephone Encounter - Brandie Morse PCA - 05/31/2023 3:09 PM CDT Patient called back and I informed patient that he documented in this encounter Plan of Treatment Upcoming Encounters Date Type Department Care Team (Late st Contact Info) Description 12/11/2024 10:30 AM HEADING SAW OPERATOR Video Visit [facility] Internal Medicine [facility] [address] [facility] [address] [place] [address] Laura Pritchard, SAMPLE MAKER HAND [address] [place] [address] 07/07/2025 11:00 AM CDT Office Visit [facility] Internal Medicine [facility] [address] [facility] [address] [place] [address] Johnny Davis MD [address] [phone] documented as of this encounter Visit Diagnoses Not on filedocumented in this encounter Care Teams Pet Trainer Relationship Specialty Start Date End Date Johnny Davis MD [address] [facility] [address] [place], [place] [phone] PCP - General Internal Medicine 12/12/12 Parminder Parry 01/26/16 [facility] 01/26/16 PROVIDER PLUS 10/25/18 documented as of this encounter
--- OUTSIDE RECORDS SUMMARY | 2024-09-26 16:41 | XMS_ITS | Encounter Summary ---
Author Organization [facility] Address 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 Gender Identity Not on file Sexual Orientation Not on file documented as of this encounter Plan of Treatment Upcoming Encounters Date Type Department Care Team (Late st Contact Info) Description 12/11/2024 10:30 AM CHIROPRACTOR SOLE 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 Video Visit [facility] Internal Medicine [facility] [address] [place] [address] Laura Pritchard NP [address] [place] [address] 07/07/2025 11:00 AM CDT Office Visit [facility] Internal Medicine [facility] [address] [place] [address] Johnny Davis MD [address] [facility] [address] [place] [address] documented as of this encounter Procedures Procedure Name Priority Date/Time Associated Diagnosis Comments XR CHEST PA AND LATERAL 2 VW Routine 11/01/2007 8:24 PM CDT TROPONIN (W/REFLEX CKMB/CK) Stat 11/01/2007 8:20 PM CDT CBC WITH DIFFERENTIAL Stat 11/01/2007 8:20 PM CDT COMPREHENSIVE METABOLIC PANEL Stat 11/01/2007 8:20 PM CDT NORTRIPTYLINE LEVEL Routine 10/25/2007 8 :00 AM CDT documented in this encounter Results * XR CHEST PA AND LATERAL (11/01/2007 8:24 PM CDT) Anatomical Region Laterality Modality Chest Other 11/01/2007 8:24 PM CDT Narrative 11/01/2007 8:40 PM CDT [facility] [address] [place], [place] [address] Admit Date: 11/01/2007 JAYNA CARRIONAGAPITO Zavala Sex: F Admit Prov: LIZZIE BANEGAS Date: 1955 Primary Care Prov: JOHNNY DAVIS; CMRN: [id number] JOHNNY DAVIS SSN: [id number] Room: ER-A IMAGING SERVICES Ordering Prov: N/A Accession Number: [id number] Interpretation Exam: Chest, PA and lateral on 11/01/2007. History: Chest Pain The heart and pulmonary vasculature are within normal limits. The lungs are clear of infiltrates or effusions. No nodules or masses are identified. No significant bony abnormalities are appreciated. Impression: No convincing radiographic evidence of acute or active cardiopulmonary disease. . Dictated by: DIANE SAMAYOA 11/01/2007 20:39 Electronically signed by: DIANE SAMAYOA 11/01/2007 20:39 Procedure Note Diane Samayoa MD - 11/01/2007 [facility] [address] [place], [place] [address] Admit Date: 11/01/2007 DIANA CARRION Sex: F Admit Prov: ER, AUTHORIZED P Date: 1955 Primary Care Prov: JOHNNY DAVIS; CMRN: [id number] JOHNNY DAVIS SSN: [id number] Room: ER-A IMAGING SERVICES Ordering Prov: N/A Interpretation Exam: Chest, PA and lateral on 11/01/2007. History: Chest Pain The heart and pulmonary vasculature are within normal limits. Thelungs are clear of infiltrates or effusions. No nodules or masses are identified. No significant bony abnormalities are appreciated. Impression: No convincing radiographic evidence of acute or active cardiopulmonary disease. . Dictated by: DIANE SAMAYOA 11/01/2007 20:39 Electronically signed by: DIANE SAMAYOA 11/01/2007 20:39 Alexi Armstrong MD DIAGNOSTIC IMAGING ORDERABLES Final Result * (ABNORMAL) COMPREHENSIVE METABOLIC PANEL (11/01/2007 8:20 PM CDT) GLUCOSE 85 65 - 99 mg/dL [facility] AST 28 12 - 32 U/L [facility] BUN 9 6 - 20 mg/dL [facility] CALCIUM 9.3 8.6 - 10.2 mg/dL [facility] ALBUMIN 4.0 3.4 - 4.8 g/dL [facility] CHLORIDE 101 96 - 108 mmol/L [facility] CREATININE 0.81 0.51 - 0.95 mg/dL [facility] ALT 23 0 - 31 U/L [facility] SODIUM 139 135 - 145 mmol/L [facility] ALKALINE PHOSPHATASE 85 35 - 104 U/L [facility] CO2 27 22 - 30 mmol/L [facility] BILIRUBIN TOTAL 0.1(L) 0.2 - 1.0 mg/dL [facility] POTASSIUM 4.2 3.5 - 4.9 mmol/L [facility] TOTAL PROTEIN 6.7 6.3 - 8.6 g/dL [facility] GFR, >60 >=60 mL/min/1. 7 sq meter [facility] GFR >60 >=60 mL/min/1. 7 sq meter [facility] Comment: Modification of Diet in Renal Disease (MDRD) study formula. Estimated GFR rate interpretative information for both Americans and non- Americans is available on the [facility] Intranet at: [email or web address] Select: Lab Policies and Procedures Select: Reference Ranges - GFR Blood specimen (specimen) 11/01/2007 8:20 PM CDT 11/01/2007 8:23 PM CDT Alexi Armstrong MD CHEMISTRY ORDERABLES Edited Performing Organization Address City/[facility] Co de Phone Number INTERFACE SYSTEM Refer to clinic/hospital department [facility] CLIA# [id number] [address] [facility] [place] [address] * TROPONIN (W/REFLEX CKMB/CK) (11/01/2007 8:20 PM CDT) TROPONIN T <0.01 <=0.03 ng/mL [facility] TROPONIN T INTERP Negative [facility] Blood specimen (specimen) 11/01/2007 8:20 PM CDT 11/01/2007 8:23 PM CDT us Alexi Armstrong MD CHEMISTRY ORDERABLES Edited Performing Organization Address City/[facility]/ZIP Co de Phone Number INTERFACE SYSTEM Refer to clinic/hospital department [facility] CLIA# [id number] [address] [place] [address] * (ABNORMAL) CBC WITH DIFFERENTIAL (11/01/2007 8:20 PM CDT) RBC 4.44 3.90 - 4.90 M/uL [facility] MCHC 34.4 31.5 - 35.5 % [facility] MCV 88.3 82.0 - 99.0 fL [facility] PLATELETS 219 140 - 350 K/uL [facility] HEMOGLOBIN 13.5 11.8 - 14.8 g/dL [facility] RDW 14.4 11.5 - 14.5 % [facility] WBC 6.8 4.0 - 9.8 K/uL [facility] MCH 30.4 27.2 - 32.6 pg [facility] MPV 10.0 9.3 - 12.4 fL [facility] HEMATOCRIT 39.2 35.5 - 44.0 % [facility] RDW-STDEV 46.3 37.1 - 48.7 fL [facility] MONOCYTE ABSOLUTE 0.50 0.10 - 1.30 K/uL [facility] NEUTROPHILS 38(L) 45 - 70 % [facility] NEUTROPHIL ABSOLUTE 2.61 1.90 - 7.00 K/uL [facility] EOSINOPHILS 4 0 - 7 % [facility] EOSINOPHIL ABSOLUTE 0.27 0.00 - 0.70 K/uL [facility] LYMPHOCYTES 50(H) 16 - 45 % [facility] LYMPHOCYTE ABSOLUTE 3.38 0.70 - 4.50 K/uL [facility] BASOPHILS 0 0 - 2 % [facility] BASOPHILS ABSOLUTE 0.03 0.00 - 0.20 K/uL [facility] MONOCYTES 7 3 - 13 % [facility] Blood specimen (specimen) 11/01/2007 8:20 PM CDT 11/01/2007 8:23 PM CDT us Alexi Armstrong MD HEMATOLOGY ORDERABLES Edited Performing Organization Address City/[facility] Co de Phone Number INTERFACE SYSTEM Refer to clinic/hospital department [facility] CLIA# [id number] [address] [place] [address] * NORTRIPTYLINE LEVEL (10/25/2007 8:00 AM CDT) NORTRIPTYLINE LEVEL 142 ng/mL [employer] [facility] Comment: Reference Range: 50-150 TOXIC: 500 OR MORE Test Performed at: [employer] [address] [place] [address] Andrea NICOLE MD Johnny Riley CHEMISTRY ORDERABLES Final Result Performing Organization Address [facility] de Phone Number INTERFACE SYSTEM Refer to clinic/hospital department [facility] [address] [place] [address] documented in this encounter Visit Diagnoses Not on filedocumented in this encounter Additional Health Concerns Infection Onset Date Last Indicated Resolved Time R/O COVID-19 09/26/2019 09/26/2019 09/26/2019 2:08 PM CDT R/O COVID-19 09/26/2019 09/26/2019 09/26/2019 3:24 PM CDT R/O COVID-19 09/26/2019 09/26/2019 09/28/2019 2:36 AM CDT documented as of this encounter Care Teams Manager Epic Relationship Specialty Start Date End Date Johnny Davis MD [address] [place] [address] [address] [place] [address] PCP - General Internal Medicine 12/12/12 noe 01/26/16 01/26/16 Parminder Parry 01/26/16 [facility] 01/26/16 PROVIDER PLUS 10/25/18 documented as of this encounter
--- OUTSIDE RECORDS SUMMARY | 2024-09-26 16:41 | XMS_ITS | Encounter Summary ---
Author Organization [facility] Address [address] [place] [address] Care Team Providers Care Business Applications Manager Name Role Phone Johnny Davis MD Primary Care Provider Encounter Details Date Type Department Care Team (Late st Contact Info) Description 07/14/2005 Orders Only [facility] Internal Medicine [facility] [address] [facility] [address] [place] [address] Johnny Davis MD [address] [place] [address] Social History Tobacco Use Types Packs/Day Years Used Date Smoking Tobacco: Never Assessed Comments Unknown Sex and Gender Information Value Date Recorded Sex Assigned at Not on file Legal Sex Female 4:28 AM POLICE SERGEANT PRECINCT Gender Identity Not on file Sexual Orientation Not on file documented as of this encounter Plan of Treatment Upcoming Encounters Date Type Department Care Team (Late st Contact Info) Description 12/11/2024 10:30 AM POLICE SERGEANT PRECINCT Video Visit [facility] Internal Medicine [facility] [address] [facility] [address] [place] [address] Laura Pritchard, MARYJO [address] [place] [address] 07/07/2025 11:00 AM CDT Office Visit [facility] Internal Medicine [facility] [address] [place] [address] Johnny Davis MD [address] [id number] documented as of this encounter Visit Diagnoses Not on filedocumented in this encounter Additional Health Concerns Infection Onset Date Last Indicated Resolved Time R/O COVID-19 09/26/2019 09/26/2019 09/26/2019 2:08 PM CDT R/O COVID-19 09/26/2019 09/26/2019 09/26/2019 3:24 PM CDT R/O COVID-19 09/26/2019 09/26/2019 09/28/2019 2:36 AM CDT documented as of this encounter Care Teams Business Applications Manager Relationship Specialty Start Date End Date Johnny Davis MD [address] [place] [address] PCP - General Internal Medicine 12/12/12 noe 01/26/16 01/26/16 Parminderoc Parry 01/26/16 [facility] 01/26/16 PROVIDER PLUS 10/25/18 documented as of this encounter
--- OUTSIDE RECORDS SUMMARY | 2024-09-26 16:41 | XMS_ITS | Encounter Summary ---
Author Organization [facility] Address [address] [place] [address] Care Team Providers Care Track Superintendent Name Role Phone Johnny Davis MD Primary Care Provider Reason for Visit * Reason Comments Medication Assistance Medication Assistance Encounter Details Date Type Department Care Team (Late st Contact Info) Description 08/21/2023 Telephone [facility] Internal Medicine [facility] [address] [facility] [address] [place] [address] Johnny Davis MD [address] [facility] [address] [place] [address] Medication Assistance; Medication Assistance Social History Tobacco Use Types Packs/Day Years [...] on file Legal Sex Female 4:28 AM CAMPAIGN ASSOCIATE Gender Identity Not on file Sexual Orientation Not on file Occupation Industry Job Start Date Job End Date Not on file Not on file Not on file Not on file documented as of this encounter Miscellaneous Notes * Telephone Encounter - Amber Pulido - 08/23/2023 11:41 AM CDT Spoke to pt Picking up 2 samples of Breztri and 1 sample of Trelegy 200mcg on 08/23 Looking into patient assistance programs and will let me know about forms to proceed /c this process Valentin is working best for her * Telephone Encounter - Kaylene London PCT - 08/23/2023 8:57 AM CDT Copied from [facility] #[id number]. Topic: Medication Request >> Aug 23, 2023 8:56 AM Kaylene Silva wrote: Caller is requesting: Medication Question from Patient (Not involving new prescription or refill) Caller: Diana Carrion Patient/Caregiver Callback Number: [phone] (home) Medication (Ask patient/caregiver to spell if possible): Trelegy 200 mg and Breztri Call Notes: Patient is asking if there are samples of these medications? She will be in the area 08/24/23 and is wanting to know if she can come by the office and pick them up. Please advise. * Telephone Encounter - Rad Goodwin - 08/21/2023 12:38 PM CDT Copied from [facility] #[id number]. 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 Patient states that she is completely out. Please Advise. documented in this encounter Plan of Treatment Upcoming Encounters Date Type Department Care Team (Late st Contact Info) Description 12/11/2024 10:30 AM CAMPAIGN ASSOCIATE Video Visit [facility] Internal Medicine [facility] [address] [facility] [address] [place] [address] Laura Pritchard, MARYJO [address] [place] [address] 07/07/2025 11:00 AM CDT Office Visit [facility] Internal [facility] [address] [address] Johnny Davis MD [address] [address] documented as of this encounter Visit Diagnoses Not on filedocumented in this encounter Care Teams Track Superintendent Relationship Specialty Start Date End Date Johnny Davis MD [address] [facility] [address] [place], [place] [id number] PCP - General Internal Medicine 12/12/12 Parminder Parry 01/26/16 [facility] 01/26/16 PROVIDER PLUS 10/25/18 documented as of this encounter
--- OUTSIDE RECORDS SUMMARY | 2024-09-26 16:41 | XMS_ITS | Encounter Summary ---
Author Organization [facility] Address 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 Gender Identity Not on file Sexual Orientation Not on file documented as of this encounter Plan of Treatment Upcoming Encounters Date Type Department Care Team (Late st Contact Info) Description 12/11/2024 10:30 AM HYDRAULIC JACK MECHANIC Video Visit [facility] Internal Medicine [facility] [address] [facility] [address] [place] [address] Laura Pritchard, MARYJO [address] [place] [address] 07/07/2025 11:00 AM CDT Office Visit [facility] Internal Medicine [facility] [address] [facility] [address] [place] [address] Johnny Davis MD [address] [facility] [facility] [address] [place] [address] documented as of this encounter Visit Diagnoses Diagnosis Depressive disorder, not elsewhere classified documented in this encounter Additional Health Concerns Infection Onset Date Last Indicated Resolved Time R/O COVID-19 09/26/2019 09/26/2019 09/26/2019 2:08 PM CDT R/O COVID-19 09/26/2019 09/26/2019 09/26/2019 3:24 PM CDT R/O COVID-19 09/26/2019 09/26/2019 09/28/2019 2:36 AM CDT documented as of this encounter Care Teams Property Insurance Inspector Relationship Specialty Start Date End Date Johnny Davis MD [address] [place] [address] PCP - General Internal Medicine 12/12/12 noe 01/26/16 01/26/16 Parminder Parry 01/26/16 [facility] 01/26/16 PROVIDER PLUS 10/25/18 documented as of this encounter
--- OUTSIDE RECORDS SUMMARY | 2024-09-26 16:41 | XMS_ITS | Encounter Summary ---
Author Organization [facility] Address [address] [place] [address] Care Team Providers Care Drapery Seamstress Name Role Phone Johnny Davis MD Primary Care Provider [phone] Encounter Details Date Type Department Care Team (Late st Contact Info) Description 04/02/2007 Emergency [facility] Er, Authorized P NO ADDRESS ON FILE Murray Whittington MD [address] [place] [place] [address] Social History Tobacco Use Types Packs/Day Years Used Date Smoking Tobacco: Never Assessed Comments Unknown Sex and Gender Information Value Date Recorded Sex Assigned at Not on file Legal Sex Female 4:28 AM BEAM DOFFER Gender Identity Not on file Sexual Orientation Not on file documented as of this encounter Plan of Treatment Upcoming Encounters Date Type Department Care Team (Late st Contact Info) Description 12/11/2024 10:30 AM BEAM DOFFER Video Visit [facility] Internal Medicine [facility] [address] [facility] [address] [place] [address] Laura Pritchard NP [address] [facility] [address] [place] [address] 07/07/2025 11:00 AM CDT Office Visit [facility] Internal Medicine [facility] [address] [place] [address] Johnny Davis MD [address] [facility] [address] [place] [address] documented as of this encounter Procedures Procedure Name Priority Date/Time Associated Diagnosis Comments ED HOLD Stat 04/02/2007 4:26 PM BEAM DOFFER documented in this encounter Results * ED HOLD (04/02/2007 4:26 PM BEAM DOFFER) SPECIMEN HOLD, BLOOD 7 days [facility] Specimen of unknown material (specimen) 04/02/2007 4:26 PM BEAM DOFFER 04/02/2007 4:28 PM BEAM DOFFER us Murray Whittington MD CHEMISTRY ORDERABLES Final Res ult [facility] [address] [facility] [place] [address] documented in this encounter Visit Diagnoses Not on filedocumented in this encounter Additional Health Concerns Infection Onset Date Last Indicated Resolved Time R/O COVID-19 09/26/2019 09/26/2019 09/26/2019 2:08 PM CDT R/O COVID-19 09/26/2019 09/26/2019 09/26/2019 3:24 PM CDT R/O COVID-19 09/26/2019 09/26/2019 09/28/2019 2:36 AM CDT documented as of this encounter Care Teams Drapery Seamstress Relationship Specialty Start Date End Date Johnny Davis MD [address] [facility] [address] [address] PCP - General Internal Medicine 12/12/12 sohan 01/26/16 01/26/16 Parminder Sohan 01/26/16 [facility] 01/26/16 PROVIDER PLUS 10/25/18 documented as of this encounter
--- OUTSIDE RECORDS SUMMARY | 2024-09-26 16:41 | XMS_ITS | Encounter Summary ---
Author Organization [facility] Address 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 Gender Identity Not on file Sexual Orientation Not on file documented as of this encounter Plan of Treatment Upcoming Encounters Date Type Department Care Team (Late st Contact Info) Description 12/11/2024 10:30 AM PREFORM MACHINE OPERATOR Video Visit [facility] Internal Medicine [facility] [address] [facility] [address] [place] [address] Laura Pritchard NP [address] [place] [address] 07/07/2025 11:00 AM CDT Office Visit [facility] Internal Medicine [facility] [address] [facility] [facility] [address] [place] [address] Johnny Davis MD [address] [facility] [address] [place] [address] documented as of this encounter Visit Diagnoses Diagnosis Unspecified dental caries- Primary documented in this encounter Additional Health Concerns Infection Onset Date Last Indicated Resolved Time R/O COVID-19 09/26/2019 09/26/2019 09/26/2019 2:08 PM CDT R/O COVID-19 09/26/2019 09/26/2019 09/26/2019 3:24 PM CDT R/O COVID-19 09/26/2019 09/26/2019 09/28/2019 2:36 AM CDT documented as of this encounter Care Teams Franchise Broker Relationship Specialty Start Date End Date Johnny Davis MD [address] [place] [address] PCP - General Internal Medicine 12/12/12 noe 01/26/16 01/26/16 Parminder Parry 01/26/16 [facility] 01/26/16 PROVIDER PLUS 10/25/18 documented as of this encounter
--- OUTSIDE RECORDS SUMMARY | 2024-09-26 16:41 | XMS_ITS | Encounter Summary ---
Author Organization [facility] Address [address] [place] [address] Care Team Providers Care Puppy Walker Name Role Phone Johnny Davis MD Primary Care Provider [phone] Encounter Details Date Type Department Care Team (Late st Contact Info) Description 04/19/2007 Orders Only [facility] Internal Medicine Medical [facility] [address] [place] [address] [address] [place] [address] Johnny Davis MD [facility] [address] [place] [address] Social History Tobacco Use Types Packs/Day Years Used Date Smoking Tobacco: Never Assessed Comments Unknown Sex and Gender Information Value Date Recorded Sex Assigned at Not on file Legal Sex Female 4:28 AM SR TECHNICAL SALES CONSULTANT Gender Identity Not on file Sexual Orientation Not on file documented as of this encounter Progress Notes * Johnny Davis MD - 07/12/2007 6:43 PM CDT TIME:10:54 am PATIENT`S HOME PHONE: PATIENT`S WORK PHONE: PATIENT`S INSURANCE: [employer] PPO WHO TOOK THE CALL: Ifeanyi Alvarado J GENERAL INFORMATION ALTERNATIVE PHONE NUMBER: [phone] WHO CALLED: Patient called. CURRENT ALLERGY LIST: EGGS IODINE PENICILLIN [facility]ARMACY NUMBER: [phone] [facility] PROBLEMS: ventolin, advair, singulair SHORTNESS OF BREATH: The symptoms began approximately 2 days ago. pt is wheezing and she's sob..pt wants prednisone..pt is coughing to catch her breath...no chest pains...some tightness in the chest SECTION 1: DOCTOR`S RESPONSE: alli 04/19/07 at 01:03 pm MEDICATIONS: Call in to Pharmacy PREDNISONE ORAL TABLET 20 MG, 2 Every Day 7 days, 1 every day 7 days, 21 Dispensed, status: CONTINUED, 04/19/2007. FINAL ACTION: [email or web address] 04/19/07 at 01:35 pm Spoke with patient 04/19/07 at 01:35 pm. /ap Called pharmacy at 04/19/07 at 01:36 pm. /ap Electronically Signed by: Macrina Urbano on April documented in this encounter Plan of Treatment Upcoming Encounters Date Type Department Care Team (Late st Contact Info) Description 12/11/2024 10:30 AM SR TECHNICAL SALES CONSULTANT Video Visit [facility] Internal Medicine [place] [address] [address] [phone] Laura Pritchard NP [address] [phone] 07/07/2025 11:00 AM CDT Office Visit [facility] Internal Medicine [facility] [address] [phone] Johnny Davis MD [address] [phone] documented as of this encounter Visit Diagnoses Not on filedocumented in this encounter Additional Health Concerns Infection Onset Date Last Indicated Resolved Time R/O COVID-19 09/26/2019 09/26/2019 09/26/2019 2:08 PM CDT R/O COVID-19 09/26/2019 09/26/2019 09/26/2019 3:24 PM CDT R/O COVID-19 09/26/2019 09/26/2019 09/28/2019 2:36 AM CDT documented as of this encounter Care Teams Puppy Walker Relationship Specialty Start Date End Date Johnny Davis MD [address] [place] [address] PCP - General Internal Medicine 12/12/12 noe 01/26/16 01/26/16 Parminder Parry 01/26/16 [facility] 01/26/16 PROVIDER PLUS 10/25/18 documented as of this encounter
--- OUTSIDE RECORDS SUMMARY | 2024-09-26 16:41 | XMS_ITS | Encounter Summary ---
Author Organization [facility] Address 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 Gender Identity Not on file Sexual Orientation Not on file documented as of this encounter Plan of Treatment Upcoming Encounters Date Type Department Care Team (Late st Contact Info) Description 12/11/2024 10:30 AM DINKEY ENGINE FIRER/FIREMAN Video Visit [facility] Internal Medicine [facility] [address] [facility] [address] [place] [address] Laura Pritchard, MARYJO [address] [place] [address] 07/07/2025 11:00 AM CDT Office Visit [facility] Internal Medicine [facility] [address] [facility] [address] [place] [address] Johnny Davis MD [address] [facility] [address] [place] [address] documented as of this encounter Visit Diagnoses Diagnosis Depressive disorder, not elsewhere classified documented in this encounter Additional Health Concerns Infection Onset Date Last Indicated Resolved Time R/O COVID-19 09/26/2019 09/26/2019 09/26/2019 2:08 PM CDT R/O COVID-19 09/26/2019 09/26/2019 09/26/2019 3:24 PM CDT R/O COVID-19 09/26/2019 09/26/2019 09/28/2019 2:36 AM CDT documented as of this encounter Care Teams Stem Roller Or Crusher Operator Relationship Specialty Start Date End Date Johnny Davis MD [address] [place] [address] PCP - General Internal Medicine 12/12/12 noe 01/26/16 01/26/16 Parminder Parry 01/26/16 [facility] 01/26/16 PROVIDER PLUS 10/25/18 documented as of this encounter
--- OUTSIDE RECORDS SUMMARY | 2024-09-26 16:41 | XMS_ITS | Encounter Summary ---
Author Organization [facility] Address [address] [place] [address] Care Team Providers Care Boring Machine Operator Production Name Role Phone Johnny Davis MD Primary Care Provider Encounter Details Date Type Department Care Team (Late st Contact Info) Description 06/09/2005 Orders Only [facility] Internal Medicine [facility] [address] [facility] [address] [place] [address] Johnny Davis MD [address] [facility] [address] [place] [address] Social History Tobacco Use Types Packs/Day Years Used Date Smoking Tobacco: Never Assessed Comments Unknown Sex and Gender Information Value Date Recorded Sex Assigned at Not on file Legal Sex Female 4:28 AM PATIENT ATTENDANT Gender Identity Not on file Sexual Orientation Not on file documented as of this encounter Plan of Treatment Upcoming Encounters Date Type Department Care Team (Late st Contact Info) Description 12/11/2024 10:30 AM PATIENT ATTENDANT Video Visit [facility] Internal Medicine [facility] [address] [facility] [address] [place] [address] Laura Pritchard, MARYJO [address] [place] [address] 07/07/2025 11:00 AM CDT Office Visit [facility] Internal Medicine [facility] [address] [facility] [address] [place] [address] Johnny Davis MD [address] [phone] documented as of this encounter Visit Diagnoses Not on filedocumented in this encounter Additional Health Concerns Infection Onset Date Last Indicated Resolved Time R/O COVID-19 09/26/2019 09/26/2019 09/26/2019 2:08 PM CDT R/O COVID-19 09/26/2019 09/26/2019 09/26/2019 3:24 PM CDT R/O COVID-19 09/26/2019 09/26/2019 09/28/2019 2:36 AM CDT documented as of this encounter Care Teams Boring Machine Operator Production Relationship Specialty Start Date End Date Johnny Davis MD [address] [place] [id number] PCP - General Internal Medicine 12/12/12 noe 01/26/16 01/26/16 Parminderoc Parry 01/26/16 [facility] 01/26/16 PROVIDER PLUS 10/25/18 documented as of this encounter
[2024-09-26 16:46] VITALS: BP 92/71; PULSE 83; RESP 20; TEMP 36.6; O2SAT 96
[2024-09-26 16:55] VITALS: BP 90/43
--- NOTE | 2024-09-26 17:01 | ED.UPPEXIN ---
HPI - Extremity Injury (Upper) General Chief Complaint: Extremity Injury, Upper Stated Complaint: Fall Injury/Laceration to Right Leg/Right Wrist Time Seen by Provider: 09/26/24 17:01 Source: patient Mode of arrival: ambulatory Limitations: no limitations History of Present Illness HPI narrative: 69 yo F presents with skin tear to R forearm, laceration to R thigh, R wrist pain. Fell today when lifting crockpot out of pantry. Dropped crockpot and ceramic broke causing injuries. pt fell and hurt wrist. Pt states hx of low BP/anemia. Lost balance in pantry. did not hit head. Injury happened around 1030 today. PCP monitoring pt's low BP. Has referral to industrial safety and health technician. All systems reviewed and negative except as noted above. Related Data Home Medications ?Medication ?Instructions ?Recorded ?Confirmed ?Last Taken ?Type albuterol sulfate 90 mcg/actuation inhalation 09/26/24 Unknown History aerosol inhaler atorvastatin 20 mg tablet mg 09/26/24 Unknown History bisoprolol fumarate 5 mg tablet mg 09/26/24 Unknown History clonazepam 1 mg tablet mg 09/26/24 Unknown History fluoxetine 20 mg capsule mg 09/26/24 Unknown History hydrocodone 10 mg-acetaminophen tablet 09/26/24 Unknown History 325 mg tablet montelukast 10 mg tablet mg 09/26/24 Unknown History pantoprazole 40 mg tablet,delayed mg PO 09/26/24 Unknown History release Allergies Allergy/AdvReac Type Severity Reaction Status Date / Time gelatin Allergy Severe GEL CAPS= Verified 09/26/24 16:50 ANAPHYLACTIC SHOCK Influenza Virus Vaccines Allergy Severe Unknown Verified 09/26/24 16:50 bee pollen Allergy Unknown Unknown Verified 09/26/24 16:50 egg Allergy Unknown Unknown Verified 09/26/24 16:50 gabapentin Allergy Unknown Unknown Verified 09/26/24 16:50 ibuprofen Allergy Unknown Unknown Verified 09/26/24 16:50 iodine Allergy Unknown Rash Verified 09/26/24 16:50 morphine Allergy Unknown Unknown Verified 09/26/24 16:50 Penicillins Allergy Unknown Unknown Verified 09/26/24 16:50 venom-honey bee Allergy Unknown Anaphylactic Verified 09/26/24 16:50 Shock DILL Allergy Severe ANAPHALAXSI Uncoded 09/26/24 16:50 S GEL CAPS Allergy Severe Anaphylactic Uncoded 09/26/24 16:50 Shock SHELLFISH Allergy Mild Rash Uncoded 09/26/24 16:50 [facility] Family History Family History (Updated 10/03/13 @ 07:13 by DOCTOR UNKNOWN) Father Family history of congenital heart disease Patient's father is Mother Family history of Alzheimer's disease Patient's mother is Sibling Family history of gallbladder disease Other Asthma Family history of heart disease in male family member before age 55 Family history of migraine headaches Social History Social History Second hand tobacco smoke exposure: Yes Smoking end date: 02/06/11 Alcohol intake: never Comments At time of signature, agree with nursing past medical, surgical, social and family history. There is no relevant family history pertinent to the presenting complaint. Exam Narrative: GENERAL: This is a well-nourished, well-developed patient, in no apparent distress. HEAD: normocephalic, atraumatic. EYES: PERRL. Sclera clear/white. Vision is grossly intact. Extraocular motions intact EARS: External ears normal NOSE: External nose normal NECK: Neck supple, non-tender without lymphadenopathy, masses or thyromegaly. CARDIOVASCULAR: Regular rate and rhythm without murmurs, gallops, or rubs. RESPIRATORY: Clear to auscultation. Breath sounds equal bilaterally. No wheezes, rales, or rhonchi. SKIN: warm, Dry, with no suspicious lesions or rash, good texture and turgor. 2 cm superficial laceration to mid right thigh, anterior aspect. Bleeding controlled. skin tear to right forearm. Approximate 1 cm. NEURO: awake, alert, and oriented to person, place and time. There were no obvious focal neurologic abnormalities. EXTREMITIES: Mild swelling noted to right wrist. Distal radial tenderness on palpation. No deformity noted. Decreased range of motion due to pain. Patient arrived wearing wrist splint from home. Course Course Level of Care: Express Care Visit Vital Signs Vital signs: Vital Signs Temperature 36.6 C 09/26/24 16:46 Pulse Rate 83 09/26/24 16:46 Respiratory Rate 20 09/26/24 16:46 Blood Pressure 92/71 L 09/26/24 16:46 Pulse Oximetry 96 09/26/24 16:46 Oxygen Delivery Room Air 09/26/24 16:46 Temperature 36.6 C 09/26/24 16:46 Pulse Rate 83 09/26/24 16:46 Respiratory Rate 20 09/26/24 16:46 Blood Pressure 92/71 L 09/26/24 16:46 Pulse Oximetry 96 09/26/24 16:46 Oxygen Delivery Room Air 09/26/24 16:46 Reviewed. BP manually checked by INSTALLATIONS INSPECTOR 108/54 Procedures Laceration Laceration 1: Date: 09/26/24 Time: 17:30 Site: lower extremity ( thigh) Side (If applicable): right Size (cm): 2 Description: linear ====== Skin Level ====== Skin layer closed with: steri strips ( 5) ====== Subcutaneous Layer ====== ====== Muscle Layer ====== ====== Tendon Layer ====== Laceration 2: Date: 09/26/24 Time: 17:30 Site: upper extremity ( forearm) Side (If applicable): right Description: other ( skin tear) ====== Skin Level ====== Skin layer closed with: steri strips (4) ====== Subcutaneous Layer ====== ====== Muscle Layer ====== ====== Tendon Layer ====== MDM - Extremity Injury (Upper) MDM Narrative Medical decision making narrative: laceration to right thigh and skin tear to right forearm repaired with Steri-Strips. Tetanus was offered today but patient declined. X-ray of right wrist negative for fracture. Wrist splint from home was placed on right wrist. Blood pressure at discharge was 108/54. No neuro deficits. Patient will follow-up with primary care physician if right wrist pain is not improving. Educated on care for Steri-Strips. Differential Diagnosis Differential diagnosis: Likely sprain and strain of wrist, fracture of wrist and fracture of hand Imaging Data My impression: agree with radiologist Radiologist's impression: XR wrist RT min 3V 09/26/2024 17:15 Indication: Right wrist pain Procedure: 4 views right wrist Comparison: No prior studies for comparison. Findings: No fracture, subluxation or dislocation. Mild osteoarthritis of the triscaphe and first carpal metacarpal joints. No erosive changes. There is anatomic alignment. 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 Discharge Plan Discharge Clinical Impression: ISTAP type 2 skin tear of right forearm Right wrist sprain Qualifiers: Encounter type: initial encounter Wrist sprain location: unspecified location Qualified Code(s): S63.501A - Unspecified sprain of right wrist, initial encounter Laceration of right thigh Qualifiers: Encounter type: initial encounter Qualified Code(s): S71.111A - Laceration without foreign body, right thigh, initial encounter Patient Disposition: Home Condition: Stable Instructions: Wrist Sprain (ED), Skin Adhesive Strips (ED) Additional Instructions: The x-ray of your right wrist was negative for fracture. Wear wrist splint for comfort for the next 1 to 2 weeks. May remove for showering and when at rest. Follow up with your primary care physician if pain not improving. Keep steri strips dry. If they become wet, pat dry with towel. Let steri strips fall off on their own. Do not pull off strips. Patient Language: Afghan Prescriptions: No Action atorvastatin 20 mg tablet clonazepam 1 mg tablet hydrocodone-acetaminophen 10-325 mg tablet bisoprolol fumarate 5 mg tablet pantoprazole 40 mg tablet,delayed release (DR/EC) PO montelukast 10 mg tablet albuterol sulfate 90 mcg/actuation HFA aerosol inhaler INHALATION fluoxetine 20 mg capsule Follow-up/Referrals: PHYSICIAN NOT ON STAFF,NONSTAFF [Primary Care Provider] Time of Disposition: 17:41
[2024-09-26 17:35] VITALS: BP 108/54
== END 2024-09-26 17:45 | disposition home or self-care (01) ==
PROVIDERS: Emergency Provider Nurse Practitioner Family
DX: S51.811A Laceration without foreign body of right forearm, initial encounter (principal); S71.111A Laceration without foreign body, right thigh, initial encounter; W45.8XXA Other foreign body or object entering through skin, initial encounter; S63.501A Unspecified sprain of right wrist, initial encounter; W19.XXXA Unspecified fall, initial encounter; Z87.891 Personal history of nicotine dependence; J44.9 Chronic obstructive pulmonary disease, unspecified; D64.9 Anemia, unspecified
CPT/HCPCS: 73110; 99213; G0463